=== PATIENT | female | born 1975 | race Caucasian/White ===

== ENCOUNTER 2020-07-10 14:44 | Emergency (ER) | payer OTHER, SELFPAY ==
[2020-07-10 15:09] VITALS: BP 142/71; PULSE 99; RESP 20; TEMP 37.1; O2SAT 100; BMI 32.4
--- NOTE | 2020-07-10 15:30 | ECG_ITS ---
Test Reason : ASTHMA Blood Pressure : / mmHG Vent. Rate : 098 BPM Atrial Rate : 098 BPM P-R Int : 132 ms QRS Dur : 084 ms QT Int : 330 ms P-R-T Axes : 058 041 005 degrees QTc Int : 421 ms Normal sinus rhythm Possible Left atrial enlargement RSR' or QR pattern in V1 suggests right ventricular conduction delay ST elevation in Anterior leads Abnormal ECG No previous ECGs available Referred By: Laurel Salmon Electronically Signed By:MERCEDES ALMODOVAR MD
--- NOTE | 2020-07-10 15:31 | XR_ITS ---
EXAMINATION: XR CHEST CLINICAL INFORMATION: Chest pain, cough and shortness of breath. COMPARISON: None TECHNIQUE: Frontal view of the chest was obtained. FINDINGS: Lungs are well-inflated and clear. Trachea is midline in position. No interstitial disease, consolidation or mass. No pleural effusion or pneumothorax. Cardiac silhouette and pulmonary vessels are normal in size. The mediastinum and gayle have normal contour. The visualized bones, and upper abdomen, are unremarkable. XR/XR chest 1V IMPRESSION: No acute cardiopulmonary abnormality.
[2020-07-10 16:15] LABS: MANUAL DIFF FLAG NO
[2020-07-10 16:24] LABS: Basophils Absolute Auto 0.1 X10*3/uL (0.0-0.2); Basophils Percent Auto 0.6 % (0-2); Eosinophils Absolute Auto 0.1 X10*3/uL (0.0-0.4); Eosinophils Percent Auto 1.4 % (0-4); Hematocrit 36.3 % (37-47); Hemoglobin 11.1 g/dl (12.0-16.0); Imm Gran Abs Auto 0.04 X10*3/uL (0.00-0.03); Imm Gran Pct Auto 0.4 % (0.0-0.4); Lymphocytes Absolute Auto 2.4 X10*3/uL (1.2-4.9); Lymphocytes Percent Auto 24.2 % (20-40); Mean Corpuscular HGB Conc 30.6 g/dl (31.0-35.0); Mean Corpuscular Hemoglobin 24.5 pg (27.0-33.0); Mean Corpuscular Volume 80.1 fL (80-98); Mean Platelet Volume 10.9 fL (9.4-12.3); Monocytes Absolute Auto 0.6 X10*3/uL (0.1-1.2); Monocytes Percent Auto 5.6 % (2-11); Neutrophils Absolute Auto 6.7 X10*3/uL (2.0-8.3); Neutrophils Percent Auto 67.8 % (45-73); Platelet Count 246 X10*3/uL (160-400); Red Blood Count 4.53 X10*6/uL (4.20-5.50); White Blood Count 9.8 X10*3/uL (4.8-10.8)
[2020-07-10] MEDS: methylPREDNISolone Sod Succ/PF 125 MG/2 ML VIAL IVPUSH (16:24)
[2020-07-10] MEDS: Acetaminophen 325 MG TABLET 650 MG PO (16:24)
[2020-07-10] MEDS: Albuterol Sulfate 90 MCG 8 GM INHALER 4 PUFF INHALE (16:26)
--- NOTE | 2020-07-10 16:36 | ED.ASTHMA ---
HPI - Asthma General Chief Complaint: Asthma Stated Complaint: ASTHMA Time Seen by Provider: 07/10/20 15:24 Source: patient Mode of arrival: ambulatory History of Present Illness HPI Narrative: 45-year-old female with a past medical history of asthma, depression, diabetes, HTN, migraines, sleep apnea, c/o productive cough, SOB, and substernal chest discomfort since yesterday. Reports pain worse with deep inspiration. Also reports chills. Denies fever, recent travel, LE edema, abdominal pain, nausea/vomiting. Denies exposure to COVID-19 MD complaint: asthma attack and shortness of breath Related Data Previous Rx's Medication Instructions Recorded benzonatate [Tessalon Perles] 100 mg PO TID PRN #14 cap 07/10/20 prednisone 40 mg PO DAILY 5 Days #10 tab 07/10/20 Allergies Allergy/AdvReac Type Severity Reaction Status Date / Time amitriptyline Allergy Unknown Verified 07/10/20 15:08 gabapentin Allergy Difficulty Verified 07/10/20 15:08 Breathing Iodinated Contrast Media Allergy Unknown Verified 07/10/20 15:08 Review of Systems Review of Systems: Constitutional: No Weight loss, No Fever, + Chills Cardiovascular: + Chest Pain, + SOB, No Dyspnea on Exertion, No Orthopnea, No Edema, No Palpitations Respiratory: + Cough, + Sputum, No Wheezing Gastrointestinal: No Nausea, No Vomiting, No Diarrhea, No Constipation, No Abdominal pain Genitourinary: No Dysuria, No Urinary Frequency, No Hematuria Musculoskeletal: No joint pain, No Myalgias, No Joint Swelling Skin: No Skin Lesions, No rash Neuro: + Headache Yes all other systems are reviewed and are negative [facility] Past Medical History Attestation statement: The following information was validated with the patient. Medical History (Updated 07/10/20 @ 18:36 by MIGUEL A Stover) Asthma Depression Diabetes Hypertension Migraine Sleep apnea Social History Social History Alcohol intake: unknown Smoking Status: Unknown if ever smoked Use of substances other than those prescribed or required for medical reasons: No Advance Directives: No Advance Directives Information Provided: No Physical Exam Vital Signs: Vital Signs: Last Vital Signs Temp 98.6 F 07/10/20 17:56 Pulse 99 07/10/20 17:56 Resp 19 07/10/20 17:56 BP 126/74 07/10/20 17:56 Pulse Ox 98 07/10/20 17:56 Body Mass Index 32.4 Const: General: cooperative and healthy appearing Orientation/consciousness: patient oriented x3 Limitations: no limitations HENMT: Head: Yes normal to inspection Ears: hearing grossly normal bilaterally General nose exam: Normal external nose present Face and sinus: Yes normal facial exam Eyes: General: appearance normal, both eyes and all related structures EOM: EOMs intact bilaterally Neck: Neck: Yes normal visual inspection Resp: Other: Mild diffuse expiratory wheeze Effort & Inspection: normal respiratory effort Auscultation: clear to auscultation bilaterally and wheezes Cardio: Rate: regular rate Heart sounds: S1 normal heart sound present and S2 normal heart sound present GI: Inspection: Yes normal to inspection Palpation (GI): Soft to palpation, nontender, no guarding and not rigid Skin: Rashes: no rashes Wounds: no wounds Neuro: General: patient oriented x3 Gait exam (Neuro): Normal gait present Extrem: Other: No LE edema or calf tenderness General: Yes normal to inspection Course Course Course Narrative: -no leukocytosis, D-dimer negative -CXR unremarkable -1726-troponin negative, COVID-19/influenza/RSV negative -on re-evaluation lungs CTA. Lab and imaging results discussed with patient including worrisome signs and symptoms and strict return precautions. In to DC home with short course of prednisone and close PCP follow-up MDM - Asthma MDM Narrative Medical decision making narrative: 45-year-old female with a past medical history of asthma, depression, diabetes, HTN, migraines, sleep apnea, c/o productive cough, SOB, and substernal chest discomfort since yesterday. On exam HR 99, RR 20, NAD/nontoxic appearing, lungs with diffuse mild expiratory wheeze, no LE edema. Concern for asthma exacerbation vs viral syndrome/COVID-19 vs PE. Rule out pneumonia. Low concern for severe sepsis. Low concern for CHF Plan: EKG, labs, CXR, albuterol, Solu-Medrol, reassess Lab Data Result diagrams: 07/10/20 16:07 07/10/20 17:05 Labs: Lab Results 07/10/20 07/10/20 07/10/20 Range/Units 15:56 16:07 16:07 WBC 9.8 (4.8-10.8) X10*3/uL RBC 4.53 (4.20-5.50) X10*6/uL Hgb 11.1 L (12.0-16.0) g/dl Hct 36.3 L (37-47) % MCV 80.1 (80-98) fL MCH 24.5 L (27.0-33.0) pg MCHC 30.6 L (31.0-35.0) g/dl RDW 17.0 H (11.0-16.0) % Plt Count 246 (160-400) X10*3/uL MPV 10.9 (9.4-12.3) fL Immature Gran % (Auto) 0.4 (0.0-0.4) % Neut % (Auto) 67.8 (45-73) % Lymph % (Auto) 24.2 (20-40) % [place] % (Auto) 5.6 (2-11) % Eos % (Auto) 1.4 (0-4) % Baso % (Auto) 0.6 (0-2) % Lymph # (Auto) 2.4 (1.2-4.9) X10*3/uL [place] # (Auto) 0.6 (0.1-1.2) X10*3/uL Eos # (Auto) 0.1 (0.0-0.4) X10*3/uL Baso # (Auto) 0.1 (0.0-0.2) X10*3/uL Abs Immat Gran (auto) 0.04 H (0.00-0.03) X10*3/uL Absolute Neuts (auto) 6.7 (2.0-8.3) X10*3/uL Absolute Nucleated RBC 0.000 (0.0-0.012) X10*3/uL Nucleated RBC % (auto) 0.0 (0.0-0.2) /100WBC D-Dimer < 200 NG/ML Sodium Potassium Chloride Carbon Dioxide Anion Gap BUN Creatinine Estim Creat Clear Calc Estimated GFR Random Glucose Calcium Total Bilirubin Direct Bilirubin AST ALT Alkaline Phosphatase Troponin I High Sens (<3.5-17.0) ng/L B-Natriuretic Peptide (<100) pg/mL Total Protein Albumin Coronavirus (PCR) NEGATIVE (Negative) Influenza Type A (PCR) NEGATIVE (Negative) Influenza Type B (PCR) NEGATIVE (Negative) RSV RNA Qual (PCR) NEGATIVE (Negative) 07/10/20 07/10/20 07/10/20 Range/Units 16:07 16:07 16:08 WBC (4.8-10.8) X10*3/uL RBC (4.20-5.50) X10*6/uL Hgb (12.0-16.0) g/dl Hct (37-47) % MCV (80-98) fL MCH (27.0-33.0) pg MCHC (31.0-35.0) g/dl RDW (11.0-16.0) % Plt Count (160-400) X10*3/uL MPV (9.4-12.3) fL Immature Gran % (Auto) (0.0-0.4) % Neut % (Auto) (45-73) % Lymph % (Auto) (20-40) % [place] % (Auto) (2-11) % Eos % (Auto) (0-4) % Baso % (Auto) (0-2) % Lymph # (Auto) (1.2-4.9) X10*3/uL [place] # (Auto) (0.1-1.2) X10*3/uL Eos # (Auto) (0.0-0.4) X10*3/uL Baso # (Auto) (0.0-0.2) X10*3/uL Abs Immat Gran (auto) (0.00-0.03) X10*3/uL Absolute Neuts (auto) (2.0-8.3) X10*3/uL Absolute Nucleated RBC (0.0-0.012) X10*3/uL Nucleated RBC % (auto) (0.0-0.2) /100WBC D-Dimer NG/ML Sodium Cancelled Potassium Cancelled Chloride Cancelled Carbon Dioxide Cancelled Anion Gap Cancelled BUN Cancelled Creatinine Cancelled Estim Creat Clear Calc Cancelled Estimated GFR Cancelled Random Glucose Cancelled Calcium Cancelled Total Bilirubin Cancelled Direct Bilirubin Cancelled AST Cancelled ALT Cancelled Alkaline Phosphatase Cancelled Troponin I High Sens < 3.5 (<3.5-17.0) ng/L B-Natriuretic Peptide < 10 (<100) pg/mL Total Protein Cancelled Albumin Cancelled Coronavirus (PCR) (Negative) Influenza Type A (PCR) (Negative) Influenza Type B (PCR) (Negative) RSV RNA Qual (PCR) (Negative) 07/10/20 07/10/20 Range/Units 17:05 17:05 WBC (4.8-10.8) X10*3/uL RBC (4.20-5.50) X10*6/uL Hgb (12.0-16.0) g/dl Hct (37-47) % MCV (80-98) fL MCH (27.0-33.0) pg MCHC (31.0-35.0) g/dl RDW (11.0-16.0) % Plt Count (160-400) X10*3/uL MPV (9.4-12.3) fL Immature Gran % (Auto) (0.0-0.4) % Neut % (Auto) (45-73) % Lymph % (Auto) (20-40) % [place] % (Auto) (2-11) % Eos % (Auto) (0-4) % Baso % (Auto) (0-2) % Lymph # (Auto) (1.2-4.9) X10*3/uL [place] # (Auto) (0.1-1.2) X10*3/uL Eos # (Auto) (0.0-0.4) X10*3/uL Baso # (Auto) (0.0-0.2) X10*3/uL Abs Immat Gran (auto) (0.00-0.03) X10*3/uL Absolute Neuts (auto) (2.0-8.3) X10*3/uL Absolute Nucleated RBC (0.0-0.012) X10*3/uL Nucleated RBC % (auto) (0.0-0.2) /100WBC D-Dimer NG/ML Sodium 138 Potassium 3.5 Chloride 107 Carbon Dioxide 23 Anion Gap 12 BUN 14 Creatinine 0.79 Estim Creat Clear Calc 89.8 Estimated GFR > 60 Random Glucose 294 H Calcium 8.3 L Total Bilirubin 0.3 Direct Bilirubin < 0.2 AST 8 ALT 9 Alkaline Phosphatase 126 H Troponin I High Sens (<3.5-17.0) ng/L B-Natriuretic Peptide (<100) pg/mL Total Protein 6.5 Albumin 3.8 Coronavirus (PCR) (Negative) Influenza Type A (PCR) (Negative) Influenza Type B (PCR) (Negative) RSV RNA Qual (PCR) (Negative) Discharge Plan Discharge Clinical Impression: Asthma with acute exacerbation Patient Disposition: Home, Self-Care Instructions: Asthma (ED) Additional Instructions: Your blood work and chest x-ray were reassuring today in the ED Your COVID-19, influenza, and RSV were negative New likely your having asthma exacerbation Continue to use her nebulizer, and inhalers at home In addition start taking prednisone as prescribed Tessalon Perles are for cough, take as needed Follow-up with her primary care doctor If her symptoms persist or worsen, you have constant worsening shortness of breath, chest pain, or cough return to the ED Prescriptions: New prednisone 20 mg tablet 40 mg PO DAILY 5 Days Qty: 10 RF: 0 benzonatate [Tessalon Perles] 100 mg capsule 100 mg PO TID PRN (Reason: cough) Qty: 14 RF: 0 Referrals: Shital Perez MD [Primary Care Provider] - 2 days
[2020-07-10 16:39] LABS: D Dimer < 200 NG/ML
[2020-07-10 16:43] LABS: B Type Natriuretic Peptide < 10 pg/mL (<100)
[2020-07-10 16:48] LABS: Influenza A PCR NEGATIVE (Negative); Influenza B PCR NEGATIVE (Negative); Resp Syncy Virus RNA Qual PCR NEGATIVE (Negative); SARS COV2 PCR INHOUSE NEGATIVE (Negative)
[2020-07-10 16:53] LABS: Troponin-I High Sensitivity < 3.5 ng/L (<3.5-17.0)
[2020-07-10 17:39] LABS: Alanine Aminotransferase 9 U/L (0-31); Albumin Level 3.8 g/dL (3.5-5.0); Alkaline Phosphatase 126 U/L (39-117); Anion Gap 12 (12-20); Aspartate Amino Transferase 8 U/L (5-31); Bilirubin Direct < 0.2 mg/dL (0.0-0.5); Bilirubin Total 0.3 mg/dL (0.0-1.0); Blood Urea Nitrogen 14 mg/dL (9-16); Calcium 8.3 mg/dL (8.4-10.2); Carbon Dioxide 23 mmol/L (22-29); Chloride 107 mmol/L (96-108); Creatinine Clr Calc Pharmacy 89.8; Estimated Glomerular Filt Rate > 60; Glucose Random 294 mg/dL (60-115); Potassium 3.5 mmol/l (3.3-5.1); Sodium 138 mmol/L (135-145); Total Protein 6.5 g/dL (6.5-8.0)
[2020-07-10 17:56] VITALS: BP 126/74; PULSE 99; RESP 19; TEMP 37; O2SAT 98
== END 2020-07-10 18:56 | disposition home or self-care (01) ==
PROVIDERS: Physician Assistant; Emergency Provider Emergency Medicine; PCP Internal Medicine
DX: J45.901 Unspecified asthma with (acute) exacerbation (principal); I10 Essential (primary) hypertension; E11.9 Type 2 diabetes mellitus without complications; Z79.899 Other long term (current) drug therapy; Z20.828 Contact with and (suspected) exposure to other viral communicable diseases
CPT/HCPCS: 0241U; 36415; 71045; 80048; 80076; 83880; 84484; 85025; 85379; 93005; 94640; 96374; 99284; J2930

== ENCOUNTER 2020-10-31 11:08 | Emergency (ER) | payer OTHER, SELFPAY ==
[2020-10-31] VITALS (7 sets, daily range): BP systolic 130–142; BP diastolic 65–75; PULSE 80–93; RESP 16–18; TEMP 36.5–37; O2SAT 100; BMI 35.8
--- NOTE | 2020-10-31 | ECG_ITS ---
Test Reason : CHEST PAIN Blood Pressure : / mmHG Vent. Rate : 091 BPM Atrial Rate : 091 BPM P-R Int : 134 ms QRS Dur : 092 ms QT Int : 372 ms P-R-T Axes : 063 035 020 degrees QTc Int : 457 ms Normal sinus rhythm Possible Left atrial enlargement Borderline ECG When compared with ECG of 10-JUL-2020 15:46, No significant change was found Referred By: Generic ED Physician Electronically Signed By:DEIDRE BUTLER
--- NOTE | ~2020-10-31 | XR_ITS ---
EXAMINATION: XR CHEST CLINICAL INFORMATION: Chest pain COMPARISON: None TECHNIQUE: Frontal view of the chest was obtained. FINDINGS: No significant abnormality is noted involving the heart, lungs, mediastinum, bony thorax or soft tissues. XR/XR chest 1V IMPRESSION: Unremarkable chest examination.
--- NOTE | ~2020-10-31 | US_ITS ---
EXAMINATION: US ABDOMEN LIMITED CLINICAL INFORMATION: Epigastric pain. Rule out gallbladder disease.. COMPARISON: None TECHNIQUE: Real-time imaging of the right upper quadrant abdominal viscera. FINDINGS: PANCREAS: The body of the pancreas is normal. The remainder of the pancreas is not well visualized. LIVER: Normal. The liver is normal in size. The liver contour is normal. Parenchymal echogenicity is normal. No focal hepatic lesion. There is no intrahepatic biliary duct dilatation seen. GALLBLADDER: Normal. The gallbladder is physiologically distended without evidence of stones, sludge, polyps, wall thickening or pericholecystic fluid. COMMON BILE DUCT: Normal in caliber measuring 0.6 cm in diameter. RIGHT KIDNEY: Normal. No hydronephrosis. No renal calculi or focal parenchymal lesions. The kidney measures 11.2 cm in maximum dimension. FREE FLUID: None. US/US abdomen limited IMPRESSION: Limited visualization of the pancreas otherwise unremarkable exam
--- NOTE | 2020-10-31 11:37 | ED.CHESTPAIN ---
HPI - Chest Pain General Chief Complaint: Chest Pain Stated Complaint: chest pain,back pain,weakness,vomiting Time Seen by Provider: 10/31/20 11:34 Source: patient Mode of arrival: ambulatory Limitations: no limitations History of Present Illness HPI narrative: 45-year-old female walked in with chest pain that started 04:00 o'clock in the morning (about 7 hours ago) well the patient up from sleep, patient describes the pain as sharp stabbing pain to the mid of the chest, radiates to the back, described as constant pain, nothing makes the pain worse or better, patient had a similar episode of chest pain in the past patient did not know the underlying cause. Patient declined any recent travel, no lower extremity swelling or tenderness. Patient also been complaining for 1 day of epigastric pain with nausea and vomiting, patient feels generalized weakness due to not tolerating p.o. intake. No sick contacts, no diarrhea. Related Data Previous Rx's Medication Instructions Recorded benzonatate [Tessalon Perles] 100 mg PO TID PRN #14 cap 07/10/20 prednisone 40 mg PO DAILY 5 Days #10 tab 07/10/20 omeprazole magnesium [Prilosec OTC] 20 mg PO BID #30 tab 10/31/20 Allergies Allergy/AdvReac Type Severity Reaction Status Date / Time amitriptyline Allergy Unknown Verified 07/10/20 15:08 gabapentin Allergy Difficulty Verified 07/10/20 15:08 Breathing Iodinated Contrast Media Allergy Unknown Verified 07/10/20 15:08 sulfamethoxazole Allergy Itching Verified 10/31/20 11:24 [From Bactrim] trimethoprim [From Bactrim] Allergy Itching Verified 10/31/20 11:24 Review of Systems Review of Systems: All other systems are reviewed and are negative Constitutional: Reports as per HPI and Reports no additional constitutional complaints Eyes: Reports as per HPI and Reports no additional eye complaints Reports system reviewed and no additional complaints, except as documented Cardiovascular: Reports as per HPI and Reports no additional cardiovascular complaints Respiratory: Reports as per HPI and Reports no additional respiratory complaints Gastrointestinal: Reports as per HPI and Reports no additional gastrointestinal complaints Genitourinary: Reports no additional female genitourinary complaints Musculoskeletal: Reports no additional musculoskeletal complaints Skin/Breast: Reports system reviewed and no additional complaints, except as docu Psychiatric: Reports no additional psychiatric complaints Endocrine: Reports no additional endocrine complaints Hematologic/Lymphatic: Reports no additional hematologic/lymphatic complaints Allergic/Immunologic: Reports no additional allergic/immunologic complaints Reports system reviewed and no additional complaints, except as documented and Reports Abnormal speech present [facility] Past Medical History Medical History Asthma Depression Diabetes Hypertension Migraine Sleep apnea Social History Social History Alcohol intake: never Smoking Status: Former smoker Use of substances other than those prescribed or required for medical reasons: No Advance Directives: No Advance Directives Information Provided: No Physical Exam Vital Signs: Vital Signs: Last Vital Signs Temp 97.8 F 10/31/20 15: Pulse 89 10/31/20 15:21 Resp 18 10/31/20 15:21 BP 135/72 10/31/20 15:21 Pulse Ox 100 10/31/20 15:21 Body Mass Index 35.8 Vital signs have been reviewed as appeared to be correct. Blood pressure normal. Heart rate normal. Respiration rate normal. Temperature normal. Oxygen saturation normal. Appearance: Alert. Oriented X3. No acute distress. Appear anxious. Head: Normal external exam. Normocephalic. Atraumatic. No Trivedi signs noted. No raccoon eyes noted Eyes: PERRLA. EOMI. Conjunctiva and sclera normal. Eyelids normal. ENT: TM's Normal. Pharynx normal. Uvula midline. Moist mucous membranes. No trismus noted. No drooling noted. No muffled voice noted. Neck: Normal inspection. Neck supple. FROM. No adenopathy. Thyroid Normal. No meningeal signs. No neck mass noted. CVS: Normal heart rate and rhythm. Heart sound normal. No murmurs noted. Pulses normal throughout. Respiratory: No respiratory distress. Painless inspiration. Breath sounds normal. No wheezes/rales/rhonchi noted. Chest nontender. No accessory muscle usage noted or decreased air movement noted. Abdomen: Soft soft mild epigastric tenderness, no guarding, no rebound tenderness.. Bowel sounds normal in all 4 quadrants. No distention noted. No organomegaly noted. No visible injury noted. Back: No CVA tenderness. Full range of motion noted. Skin: Skin warm and dry. Normal skin color. Normal skin turgor. No rashes/lesions/lacerations noted. Extremities: No lower extremity edema. Extremities exhibit normal range of motion. Extremities nontender. Neuro: Oriented X 3. No motor deficit. No sensory deficit. Reflexes normal. Course Course Course Narrative: Assessment and plan. 44-year-old female presented today with chest pain started earlier this morning, troponin is negative (9 hours after chest pain onset) EKG unremarkable, D-dimer is unremarkable as well. Physical exam is consistent with gastritis. Will start patient on Prilosec an outpatient follow-up with Gastroenterology. MDM - Chest Pain Lab Data Attestation: I reviewed the patient's lab results. Result diagrams: 10/31/20 12:42 10/31/20 12:42 Labs: Lab Results 10/31/20 10/31/20 10/31/20 Range/Units 12:01 12:42 12:42 WBC 11.3 H (4.8-10.8) X10*3/uL RBC 4.89 (4.20-5.50) X10*6/uL Hgb 11.8 L (12.0-16.0) g/dl Hct 38.7 (37-47) % MCV 79.1 L (80-98) fL MCH 24.1 L (27.0-33.0) pg MCHC 30.5 L (31.0-35.0) g/dl RDW 18.0 H (11.0-16.0) % Plt Count 209 (160-400) X10*3/uL MPV 11.0 (9.4-12.3) fL Immature Gran % (Auto) 0.6 H (0.0-0.4) % Neut % (Auto) 72.5 (45-73) % Lymph % (Auto) 19.7 L (20-40) % [place] % (Auto) 5.5 (2-11) % Eos % (Auto) 1.3 (0-4) % Baso % (Auto) 0.4 (0-2) % Lymph # (Auto) 2.2 (1.2-4.9) X10*3/uL [place] # (Auto) 0.6 (0.1-1.2) X10*3/uL Eos # (Auto) 0.2 (0.0-0.4) X10*3/uL Baso # (Auto) 0.1 (0.0-0.2) X10*3/uL Abs Immat Gran (auto) 0.07 H (0.00-0.03) X10*3/uL Absolute Neuts (auto) 8.2 (2.0-8.3) X10*3/uL Absolute Nucleated RBC 0.000 (0.0-0.012) X10*3/uL Nucleated RBC % (auto) 0.0 (0.0-0.2) /100WBC Sodium 139 (135-145) mmol/L Potassium 4.4 (3.3-5.1) mmol/L Chloride 104 (96-108) mmol/L Carbon Dioxide 24 (22-29) mmol/L Anion Gap 15 (12-20) BUN 14 (9-16) mg/dL Creatinine 0.85 (0.5-1.4) mg/dL Estim Creat Clear Calc 88.0 Estimated GFR > 60 Random Glucose 236 H (60-115) mg/dL Calcium 9.2 D (8.4-10.2) mg/dL Total Bilirubin 0.3 (0.0-1.0) mg/dL Direct Bilirubin < 0.2 (0.0-0.5) mg/dL AST 21 D (5-31) U/L ALT 13 (0-31) U/L Alkaline Phosphatase 128 H (39-117) U/L Troponin I High Sens (<3.5-17.0) ng/L B-Natriuretic Peptide (<100) pg/mL Total Protein 7.4 (6.5-8.0) g/dL Albumin 4.0 (3.5-5.0) g/dL Lipase 20 (8-78) U/L Urine Color Urine Appearance Urine pH (5.0-8.0) Ur Specific [place] (1.005-1.025) Urine Protein (NEG-TRACE) MG/DL Urine Glucose (UA) (NEG) MG/DL Urine Ketones (NEG) MG/DL Urine Blood (NEG) Urine Nitrite (NEG) Ur Leukocyte Esterase (NEG) Urine Test (NEGATIVE) COVID-19 (PARMJIT) Negative (Negative) COVID-19 Clin Com See Note 10/31/20 10/31/20 10/31/20 Range/Units 12:42 15:00 15:00 WBC (4.8-10.8) X10*3/uL RBC (4.20-5.50) X10*6/uL Hgb (12.0-16.0) g/dl Hct (37-47) % MCV (80-98) fL MCH (27.0-33.0) pg MCHC (31.0-35.0) g/dl RDW (11.0-16.0) % Plt Count (160-400) X10*3/uL MPV (9.4-12.3) fL Immature Gran % (Auto) (0.0-0.4) % Neut % (Auto) (45-73) % Lymph % (Auto) (20-40) % [place] % (Auto) (2-11) % Eos % (Auto) (0-4) % Baso % (Auto) (0-2) % Lymph # (Auto) (1.2-4.9) X10*3/uL [place] # (Auto) (0.1-1.2) X10*3/uL Eos # (Auto) (0.0-0.4) X10*3/uL Baso # (Auto) (0.0-0.2) X10*3/uL Abs Immat Gran (auto) (0.00-0.03) X10*3/uL Absolute Neuts (auto) (2.0-8.3) X10*3/uL Absolute Nucleated RBC (0.0-0.012) X10*3/uL Nucleated RBC % (auto) (0.0-0.2) /100WBC Sodium (135-145) mmol/L Potassium (3.3-5.1) mmol/L Chloride (96-108) mmol/L Carbon Dioxide (22-29) mmol/L Anion Gap (12-20) BUN (9-16) mg/dL Creatinine (0.5-1.4) mg/dL Estim Creat Clear Calc Estimated GFR Random Glucose (60-115) mg/dL Calcium (8.4-10.2) mg/dL Total Bilirubin (0.0-1.0) mg/dL Direct Bilirubin (0.0-0.5) mg/dL AST (5-31) U/L ALT (0-31) U/L Alkaline Phosphatase (39-117) U/L Troponin I High Sens < 3.5 (<3.5-17.0) ng/L B-Natriuretic Peptide < 10 (<100) pg/mL Total Protein (6.5-8.0) g/dL Albumin (3.5-5.0) g/dL Lipase (8-78) U/L Urine Color YELLOW Urine Appearance CLEAR Urine pH 5.5 (5.0-8.0) Ur Specific [place] 1.025 (1.005-1.025) Urine Protein NEG (NEG-TRACE) MG/DL Urine Glucose (UA) 100 H (NEG) MG/DL Urine Ketones NEG (NEG) MG/DL Urine Blood NEG (NEG) Urine Nitrite NEG (NEG) Ur Leukocyte Esterase NEG (NEG) Urine Test NEGATIVE (NEGATIVE) COVID-19 (PARMJIT) (Negative) COVID-19 Clin Com Imaging Data Chest x-ray: Radiologist's impression: Unremarkable chest X emanation. US - abdomen: Radiologist's impression: PANCREAS: The body of the pancreas is normal. The remainder of the pancreas is not well visualized. LIVER: Normal. The liver is normal in size. The liver contour is normal. Parenchymal echogenicity is normal. No focal hepatic lesion. There is no intrahepatic biliary duct dilatation seen. GALLBLADDER: Normal. The gallbladder is physiologically distended without evidence of stones, sludge, polyps, wall thickening or pericholecystic fluid. COMMON BILE DUCT: Normal in caliber measuring 0.6 cm in diameter. RIGHT KIDNEY: Normal. No hydronephrosis. No renal calculi or focal parenchymal lesions. The kidney measures 11.2 cm in maximum dimension. Discharge Plan Discharge Clinical Impression: Chest pain, Gastritis Patient Disposition: Home, Self-Care Instructions: Gastritis (ED) Prescriptions: New omeprazole magnesium [Prilosec OTC] 20 mg tablet,delayed release (DR/EC) 20 mg PO BID Qty: 30 RF: 0 No Action prednisone 20 mg tablet 40 mg PO DAILY 5 Days Qty: 10 RF: 0 benzonatate [Tessalon Perles] 100 mg capsule 100 mg PO TID PRN (Reason: cough) Qty: 14 RF: 0 Referrals: Shital Perez MD [Primary Care Provider] - 2 days Mounika Campbell MD [Physician] - 2 days
--- NOTE | 2020-10-31 11:48 | PC.NURSE ---
pt placed on upholstery tech. MD at bedside
[2020-10-31 12:31] LABS: COVID-19 Test Negative (Negative)
[2020-10-31 12:47] LABS: MANUAL DIFF FLAG NO
[2020-10-31 12:50] LABS: Basophils Absolute Auto 0.1 X10*3/uL (0.0-0.2); Basophils Percent Auto 0.4 % (0-2); Eosinophils Absolute Auto 0.2 X10*3/uL (0.0-0.4); Eosinophils Percent Auto 1.3 % (0-4); Hematocrit 38.7 % (37-47); Hemoglobin 11.8 g/dl (12.0-16.0); Imm Gran Abs Auto 0.07 X10*3/uL (0.00-0.03); Imm Gran Pct Auto 0.6 % (0.0-0.4); Lymphocytes Absolute Auto 2.2 X10*3/uL (1.2-4.9); Lymphocytes Percent Auto 19.7 % (20-40); Mean Corpuscular HGB Conc 30.5 g/dl (31.0-35.0); Mean Corpuscular Hemoglobin 24.1 pg (27.0-33.0); Mean Corpuscular Volume 79.1 fL (80-98); Monocytes Absolute Auto 0.6 X10*3/uL (0.1-1.2); Monocytes Percent Auto 5.5 % (2-11); Neutrophils Absolute Auto 8.2 X10*3/uL (2.0-8.3); Neutrophils Percent Auto 72.5 % (45-73); Platelet Count 209 X10*3/uL (160-400); Red Blood Count 4.89 X10*6/uL (4.20-5.50); White Blood Count 11.3 X10*3/uL (4.8-10.8)
[2020-10-31] MEDS: Magnesium Hydrox/Alum Hydrox 30 ML ORAL.SUSP PO (13:10)
[2020-10-31 13:12] LABS: B Type Natriuretic Peptide < 10 pg/mL (<100); Troponin-I High Sensitivity < 3.5 ng/L (<3.5-17.0)
--- NOTE | 2020-10-31 13:20 | PC.NURSE ---
patient a&ox3, orthostats obtained, ekg performed, unable to get iv access with multiple attempts by different nurses although we were able to obtain labs-provider is aware and changed medications to PO meds for the time being, pt quality assurance monitor nsr 80s-90s, family at bedside, pt medicated per order, will continue to monitor.
[2020-10-31 13:21] LABS: Alanine Aminotransferase 13 U/L (0-31); Alkaline Phosphatase 128 U/L (39-117); Anion Gap 15 (12-20); Aspartate Amino Transferase 21 U/L (5-31); Bilirubin Direct < 0.2 mg/dL (0.0-0.5); Bilirubin Total 0.3 mg/dL (0.0-1.0); Blood Urea Nitrogen 14 mg/dL (9-16); Calcium 9.2 mg/dL (8.4-10.2); Carbon Dioxide 24 mmol/L (22-29); Chloride 104 mmol/L (96-108); Estimated Glomerular Filt Rate > 60; Glucose Random 236 mg/dL (60-115); Lipase 20 U/L (8-78); Potassium 4.4 mmol/L (3.3-5.1); Sodium 139 mmol/L (135-145); Total Protein 7.4 g/dL (6.5-8.0)
[2020-10-31 15:13] LABS: Glucose Urine UA 100 MG/DL (NEG); Leukocyte Esterase Urine NEG (NEG); Nitrite Urine NEG (NEG); PH 5.5 (5.0-8.0); Specific Gravity - Urine 1.025 (1.005-1.025); Urine Blood NEG (NEG); Urine Ketones NEG (NEG); Urine Protein NEG (NEG-TRACE)
[2020-10-31] MEDS: oxyCODONE HCl Immed Release 5 MG TABLET PO (15:20)
--- NOTE | 2020-10-31 15:21 | PC.NURSE ---
pt medicated for pain per order
--- NOTE | 2020-10-31 15:21 | PC.NURSE ---
us performed at bedside
[2020-10-31 15:23] LABS: Appearance Urine CLEAR; Color Urine YELLOW; UPreg QC Valid YES; Urine Pregnancy NEGATIVE (NEGATIVE)
--- NOTE | 2020-10-31 15:23 | PC.NURSE ---
rag sorter nsr 80s-90s
== END 2020-10-31 16:22 | disposition home or self-care (01) ==
PROVIDERS: Emergency Provider Emergency Medicine; PCP Internal Medicine
DX: R07.89 Other chest pain (principal); K29.70 Gastritis, unspecified, without bleeding; R10.13 Epigastric pain; M54.5 Low back pain; Z20.822 Contact with and (suspected) exposure to COVID-19; Z79.899 Other long term (current) drug therapy; Z87.891 Personal history of nicotine dependence
CPT/HCPCS: 36415; 71045; 76705; 80048; 80076; 81003; 81025; 83690; 83880; 84484; 85025; 87635; 93005; 96365; 96375; 99284

== ENCOUNTER 2020-11-24 23:05 | Emergency (ER) | payer OTHER, SELFPAY | END 2020-11-25 01:47 | disposition left against medical advice (07) | PROVIDERS: Emergency Provider Emergency Medicine; PCP Internal Medicine | DX: R10.2 Pelvic and perineal pain (principal) ==

== ENCOUNTER → 2020-12-20 11:16 | Outpatient (BNVA) | payer OTHER, SELFPAY | PROVIDERS: PCP Internal Medicine; Visit Provider Internal Medicine Gastroenterology | DX: R10.9 Unspecified abdominal pain (principal); R14.0 Abdominal distension (gaseous) | CPT/HCPCS: 99202 ==

== ENCOUNTER 2020-12-22 12:53 | Emergency (ER) | payer OTHER, SELFPAY ==
[2020-12-22 13:21] VITALS: BP 136/79; PULSE 110; RESP 16; TEMP 36.1; O2SAT 98; BMI 34.9
--- NOTE | 2020-12-22 13:47 | ED.FEMALEGU ---
HPI - Female Genitourinary General Chief complaint: Urogenital-Female Stated complaint: vag burning Time Seen by Provider: 12/22/20 13:47 History of Present Illness HPI Narrative: Patient complains of vaginal pain and burning for several days, she saw her process control programmer a few days ago evaluated and felt there was no infection but she says burning continues and wants to be re-evaluate, there is no fever no chills no vomiting no abdominal pain no bleeding Related Data Home Medications Medication Instructions Recorded Confirmed amlodipine 10 mg tablet 10 mg PO DAILY 12/20/20 clonazepam 0.5 mg tablet 0.25 mg PO BEDTIME 12/20/20 cyclobenzaprine 10 mg tablet 10 mg PO BEDTIME 12/20/20 duloxetine 60 mg capsule,delayed 60 mg PO DAILY 12/20/20 release empagliflozin 10 mg tablet 10 mg PO DAILY 12/20/20 ferrous sulfate 325 mg (65 mg 325 mg PO DAILY 12/20/20 iron) tablet insulin glargine 100 unit/mL 25 unit SUBCUT BID ml 12/20/20 subcutaneous solution insulin lispro 200 unit/mL (3 mL) 20 unit SUBCUT QIDACHS 12/20/20 subcutaneous pen lisinopril 10 mg tablet 10 mg PO DAILY 12/20/20 melatonin 10 mg capsule 10 mg PO BEDTIME PRN 12/20/20 promethazine 25 mg tablet 25 mg PO TID PRN 12/20/20 sennosides 8.6 mg-docusate sodium 1 tab-cap PO BEDTIME 12/20/20 50 mg tablet topiramate 200 mg capsule 200 mg PO DAILY 12/20/20 sprinkle,extended release 24 hr Previous Rx's Medication Instructions Recorded benzonatate [Tessalon Perles] 100 mg PO TID PRN #14 cap 07/10/20 prednisone 40 mg PO DAILY 5 Days #10 tab 07/10/20 omeprazole magnesium 20 mg 20 mg PO BID 28 Days #56 tab 12/20/20 tablet,delayed release polyethylene glycol 3350 17 238 g PO ONCE #238 g 12/20/20 gram/dose oral powder hydrocortisone 1 appl TOPICAL TID PRN #28.35 g 12/22/20 Allergies Allergy/AdvReac Type Severity Reaction Status Date / Time meloxicam Allergy Mild kidney Verified 12/20/20 11:29 failure amitriptyline Allergy Unknown Verified 12/20/20 11:29 gabapentin Allergy Difficulty Verified 12/20/20 11:29 Breathing Iodinated Contrast Media Allergy Unknown Verified 12/20/20 11:29 sulfamethoxazole Allergy Itching Verified 12/20/20 11:29 [From Bactrim] trimethoprim [From Bactrim] Allergy Itching Verified 12/20/20 11:29 Review of Systems Review of Systems: Positive for vaginal discharge and burning Negative no fever no chills no dizziness no weakness no headache nor sore throat no chest pain no shortness of breath no abdominal pain no nausea vomiting or diarrhea no burning with urination or frequency of urination no rash Yes all other systems are reviewed and are negative PMFSH Past Medical History Source: nursing notes reviewed Medical History Adrenal mass Anemia Anxiety Asthma Carpal tunnel syndrome Depression Diabetes Fibromyalgia GERD (gastroesophageal reflux disease) Hypertension Migraine Sleep apnea Social History Social History Alcohol intake: never Physical Exam Vital Signs: Vital Signs: Last Vital Signs Temp 96.9 F 12/22/20 13: Pulse 110 H 12/22/20 13:21 Resp 16 12/22/20 13:21 BP 136/79 12/22/20 13:21 Pulse Ox 98 12/22/20 13:21 Body Mass Index 34.9 General appearance is no acute distress, and cooperative Head is normocephalic atraumatic Pharynx mucous membranes moist Neck is supple Respiratory no distress Abdomen soft nontender no rebound no guarding no bladder tenderness no flank tenderness no CVA tenderness Pelvic exam normal external appearance, no rashes no ulcerations Speculum exam again is normal appearance there is some scant amount of odorless white discharge Internal digital exam no masses felt no significant tenderness no cervical motion tenderness Skin no rashes Extremities full range of motion x4 Course Course Course Narrative: No evidence of any serious acute pathology, discharge was cultured and patient will follow with process control programmer doctor MDM - Female Genitourinary Lab Data Labs: Lab Results 12/22/20 12/22/20 12/22/20 Range/Units 13:59 14:00 15:51 Urine Color YELLOW Urine Appearance CLEAR Urine pH 5.5 (5.0-8.0) Ur Specific [place] 1.015 (1.005-1.025) Urine Protein NEG (NEG-TRACE) MG/DL Urine Glucose (UA) >=1000 H (NEG) MG/DL Urine Ketones NEG (NEG) MG/DL Urine Blood NEG (NEG) Urine Nitrite NEG (NEG) Ur Leukocyte Esterase NEG (NEG) Urine RBC 0-2 (0) /HPF Urine WBC 0 (0-4) /HPF Ur Squamous Epith Cells 1+ /LPF Urine Bacteria NONE /LPF Urine Test NEGATIVE (NEGATIVE) Maribell species DNA (Negative) Chlam trachomat DNA PCR NOT DETECTED (Not Detect.) Gardnerella DNA Probe (Negative) N.gonorrhoeae DNA (PCR) NOT DETECTED (Not Detect.) Trichomonas DNA Probe (Negative) 12/22/20 Range/Units 15:53 Urine Color Urine Appearance Urine pH (5.0-8.0) Ur Specific [place] (1.005-1.025) Urine Protein (NEG-TRACE) MG/DL Urine Glucose (UA) (NEG) MG/DL Urine Ketones (NEG) MG/DL Urine Blood (NEG) Urine Nitrite (NEG) Ur Leukocyte Esterase (NEG) Urine RBC (0) /HPF Urine WBC (0-4) /HPF Ur Squamous Epith Cells /LPF Urine Bacteria /LPF Urine Test (NEGATIVE) Maribell species DNA Positive A (Negative) Chlam trachomat DNA PCR (Not Detect.) Gardnerella DNA Probe Negative (Negative) N.gonorrhoeae DNA (PCR) (Not Detect.) Trichomonas DNA Probe Negative (Negative) Discharge Plan Discharge Clinical Impression: Vaginal irritation Patient Disposition: Home, Self-Care Additional Instructions: Your exam was normal except for scant small amount of white discharge, there was no sign of any dangerous infection or surgical emergency I did not see any rash Hydrocortisone cream may help the burning so you can try to see if it helps Most important follow with her mortarman for re-evaluation in several days if not better Return to ER any time if worse Prescriptions: New hydrocortisone 1 % cream 1 appl topical TID PRN (Reason: skin irritation) Qty: 28.35 RF: 0 No Action prednisone 20 mg tablet 40 mg PO DAILY 5 Days Qty: 10 RF: 0 benzonatate [Tessalon Perles] 100 mg capsule 100 mg PO TID PRN (Reason: cough) Qty: 14 RF: 0 Humalog KwikPen Insulin 200 unit/mL (3 mL) insulin pen 20 unit subcut QIDACHS RF: 0 Lantus U-100 Insulin 100 unit/mL solution 25 unit subcut BID RF: 0 Jardiance 10 mg tablet 10 mg PO DAILY RF: 0 sennosides-docusate sodium [Senexon-S] 8.6-50 mg tablet 1 tab-cap PO BEDTIME RF: 0 clonazepam 0.5 mg tablet 0.25 mg PO BEDTIME RF: 0 duloxetine 60 mg capsule,delayed release(DR/EC) 60 mg PO DAILY RF: 0 topiramate 200 mg cap,sprinkle,ER 24hr dose pack 200 mg PO DAILY RF: 0 lisinopril 10 mg tablet 10 mg PO DAILY RF: 0 ferrous sulfate 325 mg (65 mg iron) tablet 325 mg PO DAILY RF: 0 cyclobenzaprine 10 mg tablet 10 mg PO BEDTIME RF: 0 amlodipine 10 mg tablet 10 mg PO DAILY RF: 0 promethazine 25 mg tablet 25 mg PO TID PRNRF: 0 melatonin 10 mg capsule 10 mg PO BEDTIME PRNRF: 0 omeprazole magnesium [Prilosec OTC] 20 mg tablet,delayed release (DR/EC) 20 mg PO BID 28 Days Qty: 56 RF: 2 polyethylene glycol 3350 [Miralax] 17 gram/dose powder 238 g PO ONCE Qty: 238 RF: 0 Interventions: ED Discharge Assessment Last Done: 12/22/20 16:14 Discharge Date/Time: 12/22/20 16:15
[2020-12-22 14:16] LABS: Glucose Urine UA >=1000 MG/DL (NEG); Leukocyte Esterase Urine NEG (NEG); Nitrite Urine NEG (NEG); PH 5.5 (5.0-8.0); Specific Gravity - Urine 1.015 (1.005-1.025); Urine Blood NEG (NEG); Urine Ketones NEG (NEG); Urine Protein NEG (NEG-TRACE)
[2020-12-22 14:17] LABS: Appearance Urine CLEAR; Color Urine YELLOW
[2020-12-22 14:18] LABS: UPreg QC Valid YES; Urine Pregnancy NEGATIVE (NEGATIVE)
[2020-12-22 14:35] LABS: RBC Urine 0-2 /HPF (0); Squamous Epithelial Cell Urine 1+ /LPF; WBC Urine 0 /HPF (0-4)
[2020-12-23 09:16] LABS: BV Int Neg Control Negative (Negative); BV Int Pos Control Positive (Positive)
[2020-12-23 09:29] LABS: CT PCR NOT DETECTED (Not Detect.); NG PCR NOT DETECTED (Not Detect.)
== END 2020-12-22 16:15 | disposition home or self-care (01) ==
PROVIDERS: Physician Assistant Medical; Emergency Provider Emergency Medicine; PCP Internal Medicine
DX: N89.8 Other specified noninflammatory disorders of vagina (principal); R10.2 Pelvic and perineal pain; E11.9 Type 2 diabetes mellitus without complications; I10 Essential (primary) hypertension; Z79.899 Other long term (current) drug therapy
CPT/HCPCS: 81001; 81025; 87480; 87491; 87510; 87591; 87660; 99283

== ENCOUNTER 2021-01-05 16:41 | Emergency (ER) | payer OTHER, SELFPAY ==
--- NOTE | ~2021-01-05 | XR_ITS ---
EXAMINATION: XR HIP, RIGHT CLINICAL INFORMATION: Pain COMPARISON: None TECHNIQUE: Two views of the right hip and one view of the pelvis. FINDINGS: Bone alignment is normal. No fracture or dislocation is seen. There is a small soft tissue calcification or ossification adjacent to the superior lateral right hip joint. The right hip joint is otherwise normal. Bones of the pelvis are unremarkable. There are fallopian tube closure devices in the pelvis. There are bilateral pelvic calcifications probably representing calcified phleboliths. Soft tissues are otherwise unremarkable. XR/XR hip RT min 2V IMPRESSION: Small soft tissue calcification or ossification adjacent to the superior lateral right hip joint otherwise unremarkable exam.
[2021-01-05 17:07] VITALS: BP 112/76; PULSE 101; RESP 16; TEMP 36.1; O2SAT 97; BMI 34.5
--- NOTE | 2021-01-05 18:23 | ED.GENADULT ---
HPI - General Adult General Chief complaint: Extremity Problem Stated complaint: hip pain Time Seen by Provider: 01/05/21 16:56 History of Present Illness HPI narrative: Patient complains of right hip pain and right low back pain radiating down to the toes there is no fall no injury no numbness no weakness no tingling no dysuria no frequency no incontinence no changes to bowel or bladder Related Data Home Medications Medication Instructions Recorded Confirmed amlodipine 10 mg tablet 10 mg PO DAILY 12/20/20 clonazepam 0.5 mg tablet 0.25 mg PO BEDTIME 12/20/20 cyclobenzaprine 10 mg tablet 10 mg PO BEDTIME 12/20/20 duloxetine 60 mg capsule,delayed 60 mg PO DAILY 12/20/20 release empagliflozin 10 mg tablet 10 mg PO DAILY 12/20/20 ferrous sulfate 325 mg (65 mg 325 mg PO DAILY 12/20/20 iron) tablet insulin glargine 100 unit/mL 25 unit SUBCUT BID ml 12/20/20 subcutaneous solution insulin lispro 200 unit/mL (3 mL) 20 unit SUBCUT QIDACHS 12/20/20 subcutaneous pen lisinopril 10 mg tablet 10 mg PO DAILY 12/20/20 melatonin 10 mg capsule 10 mg PO BEDTIME PRN 12/20/20 promethazine 25 mg tablet 25 mg PO TID PRN 12/20/20 sennosides 8.6 mg-docusate sodium 1 tab-cap PO BEDTIME 12/20/20 50 mg tablet topiramate 200 mg capsule 200 mg PO DAILY 12/20/20 sprinkle,extended release 24 hr Previous Rx's Medication Instructions Recorded benzonatate [Tessalon Perles] 100 mg PO TID PRN #14 cap 07/10/20 prednisone 40 mg PO DAILY 5 Days #10 tab 07/10/20 omeprazole magnesium 20 mg 20 mg PO BID 28 Days #56 tab 12/20/20 tablet,delayed release polyethylene glycol 3350 17 238 g PO ONCE #238 g 12/20/20 gram/dose oral powder hydrocortisone 1 appl TOPICAL TID PRN #28.35 g 12/22/20 cyclobenzaprine 5 mg PO TID PRN #10 tab 01/05/21 cyclobenzaprine 5 mg PO TID PRN #10 tab 01/05/21 oxycodone 5 mg PO Q6H PRN #10 tab 01/05/21 oxycodone 5 mg PO Q6H PRN #7 tab 01/05/21 Allergies Allergy/AdvReac Type Severity Reaction Status Date / Time meloxicam Allergy Mild kidney Verified 01/05/21 17:11 failure amitriptyline Allergy Unknown Verified 01/05/21 17:11 gabapentin Allergy Difficulty Verified 01/05/21 17:11 Breathing Iodinated Contrast Media Allergy Unknown Verified 01/05/21 17:11 sulfamethoxazole Allergy Itching Verified 01/05/21 17:11 [From Bactrim] trimethoprim [From Bactrim] Allergy Itching Verified 01/05/21 17:11 Review of Systems Review of Systems: Positive for right low back pain and right hip pain negatives are no fever no chills no dizziness no weakness no headache no neck pain no chest pain no shortness of breath no abdominal pain no nausea vomiting or diarrhea no dysuria no frequency no incontinence no numbness weakness or tingling PMFSH Past Medical History Source: nursing notes reviewed Medical History Adrenal mass Anemia Anxiety Asthma Carpal tunnel syndrome Depression Diabetes Fibromyalgia GERD (gastroesophageal reflux disease) Hypertension Migraine Sleep apnea Social History Social History Alcohol intake: never Advance Directives: No Advance Directives Information Provided: No Physical Exam Vital Signs: Vital Signs: Last Vital Signs Temp 97 F 01/05/21 17:07 Pulse 101 H 01/05/21 17:07 Resp 16 01/05/21 17:07 BP 112/76 01/05/21 17:07 Pulse Ox 97 01/05/21 17:07 Body Mass Index 34.5 General appearance no acute distress Head is normocephalic atraumatic Neck is supple and nontender Chest is clear to auscultation bilateral No respiratory distress Heart no murmur Abdomen soft nontender Back exam there is right lower lumbar and gluteal tenderness, skin is normal, pain is reproduced with movement, there is no bony tenderness no CVA tenderness Extremities the right hip had some tenderness but had a full range of motion patient can straight leg lift and can walk and bear weight with a mild limp Leg is neurovascular intact distal Other extremities normal Skin no rash Neuro no gross motor sensory deficit Course Course Course Narrative: X-ray of the hip was normal Back pain is consistent with lumbar muscle strain, no neurologic impairment and patient is discharged Discharge Plan Discharge Clinical Impression: Sciatica, Arthralgia of hip, right Patient Disposition: Home, Self-Care Additional Instructions: X-ray showed some possibly arthritic changes so follow with the orthopedist for further evaluation of right hip For back pain if needed follow with primary doctor for physical therapy Return any concerns Use extra-strength Tylenol as a baseline if needed you can take the oxycodone Flexeril as a muscle relaxer Prescriptions: New oxycodone 5 mg tablet 5 mg PO Q6H PRN (Reason: pain) Qty: 10 RF: 0 cyclobenzaprine 5 mg tablet 5 mg PO TID PRN (Reason: muscle spasm) Qty: 10 RF: 0 cyclobenzaprine 5 mg tablet 5 mg PO TID PRN (Reason: muscle spasm) Qty: 10 RF: 0 oxycodone 5 mg tablet 5 mg PO Q6H PRN (Reason: pain) Qty: 7 RF: 0 No Action hydrocortisone 1 % cream 1 appl topical TID PRN (Reason: skin irritation) Qty: 28.35 RF: 0 prednisone 20 mg tablet 40 mg PO DAILY 5 Days Qty: 10 RF: 0 benzonatate [Tessalon Perles] 100 mg capsule 100 mg PO TID PRN (Reason: cough) Qty: 14 RF: 0 Humalog KwikPen Insulin 200 unit/mL (3 mL) insulin pen 20 unit subcut QIDACHS RF: 0 Lantus U-100 Insulin 100 unit/mL solution 25 unit subcut BID RF: 0 Jardiance 10 mg tablet 10 mg PO DAILY RF: 0 sennosides-docusate sodium [Senexon-S] 8.6-50 mg tablet 1 tab-cap PO BEDTIME RF: 0 clonazepam 0.5 mg tablet 0.25 mg PO BEDTIME RF: 0 duloxetine 60 mg capsule,delayed release(DR/EC) 60 mg PO DAILY RF: 0 topiramate 200 mg cap,sprinkle,ER 24hr dose pack 200 mg PO DAILY RF: 0 lisinopril 10 mg tablet 10 mg PO DAILY RF: 0 ferrous sulfate 325 mg (65 mg iron) tablet 325 mg PO DAILY RF: 0 cyclobenzaprine 10 mg tablet 10 mg PO BEDTIME RF: 0 amlodipine 10 mg tablet 10 mg PO DAILY RF: 0 promethazine 25 mg tablet 25 mg PO TID PRNRF: 0 melatonin 10 mg capsule 10 mg PO BEDTIME PRNRF: 0 omeprazole magnesium [Prilosec OTC] 20 mg tablet,delayed release (DR/EC) 20 mg PO BID 28 Days Qty: 56 RF: 2 polyethylene glycol 3350 [Miralax] 17 gram/dose powder 238 g PO ONCE Qty: 238 RF: 0 Interventions: ED Discharge Assessment Last Done: 01/05/21 19:29 Discharge Date/Time: 01/05/21 19:02
[2021-01-05] MEDS: Acetaminophen 325 MG TABLET 650 MG PO (19:10)
== END 2021-01-05 19:02 | disposition home or self-care (01) ==
PROVIDERS: Emergency Provider Emergency Medicine Emergency Medical Services; PCP Internal Medicine
DX: M54.31 Sciatica, right side (principal); M25.551 Pain in right hip; M54.5 Low back pain; Z79.899 Other long term (current) drug therapy
CPT/HCPCS: 73502; 99284

== ENCOUNTER 2021-02-01 09:19 | Day surgery (SDC) | payer OTHER, SELFPAY ==
--- NOTE | 2021-01-31 10:11 | HO.ANESPROP2 ---
Documented by User: Anna Garcia 01/31/21 10:13 HPI - Anesthesia Eval Consult details Narrative: 46yo F for Upper Endoscopy and Colonoscopy *multiple allergies* PMFSH Past Medical History Medical History (Updated 01/31/21 @ 10:12 by Anna Garcia) Adrenal mass Anemia Anxiety Asthma Carpal tunnel syndrome Depression Diabetes Fibromyalgia GERD (gastroesophageal reflux disease) Hypertension Migraine Sleep apnea Social History Social History Alcohol intake: never Patient Tobacco Use Status: Never used Tobacco Use of substances other than those prescribed or required for medical reasons: No Have you been hit, kicked, punched, or otherwise hurt by someone within the past year? If so, by whom?: No Are you DNR?: No Advance Directives: No Advance Directives Information Provided: Yes Meds Allergies Allergy/AdvReac Type Severity Reaction Status Date / Time meloxicam Allergy Mild kidney Verified 02/01/21 10:03 failure amitriptyline Allergy Unknown Verified 02/01/21 10:03 gabapentin Allergy Difficulty Verified 02/01/21 10:03 Breathing Iodinated Contrast Media Allergy Unknown Verified 02/01/21 10:03 sulfamethoxazole Allergy Itching Verified 02/01/21 10:03 [From Bactrim] trimethoprim [From Bactrim] Allergy Itching Verified 02/01/21 10:03 Home Medications Medication Instructions Recorded Confirmed Last Taken Type amlodipine 10 mg tablet 10 mg PO DAILY 12/20/20 Unknown History clonazepam 0.5 mg tablet 0.25 mg PO BEDTIME 12/20/20 Unknown History cyclobenzaprine 10 mg tablet 10 mg PO BEDTIME 12/20/20 Unknown History duloxetine 60 mg capsule,delayed 60 mg PO DAILY 12/20/20 Unknown History release empagliflozin 10 mg tablet 10 mg PO DAILY 12/20/20 Unknown History ferrous sulfate 325 mg (65 mg 325 mg PO DAILY 12/20/20 Unknown History iron) tablet insulin glargine 100 unit/mL 25 unit SUBCUT BID ml 12/20/20 Unknown History subcutaneous solution insulin lispro 200 unit/mL (3 mL) 20 unit SUBCUT QIDACHS 12/20/20 Unknown History subcutaneous pen lisinopril 10 mg tablet 10 mg PO DAILY 12/20/20 Unknown History melatonin 10 mg capsule 10 mg PO BEDTIME PRN 12/20/20 Unknown History promethazine 25 mg tablet 25 mg PO TID PRN 12/20/20 Unknown History sennosides 8.6 mg-docusate sodium 1 tab-cap PO BEDTIME 12/20/20 Unknown History 50 mg tablet topiramate 200 mg capsule 200 mg PO DAILY 12/20/20 Unknown History sprinkle,extended release 24 hr Exam Exam Date and Time: January 31, 2021 1011 Pertinent Lab Results Pertinent Lab Results: Laboratory Tests 10/31/20 10/31/20 12:42 12:42 WBC 11.3 H Hgb 11.8 L Hct 38.7 Plt Count 209 Sodium 139 Potassium 4.4 Chloride 104 Carbon Dioxide 24 BUN 14 Creatinine 0.85 Narrative Narrative: EKG 10/2020 Vent. Rate : 091 BPM Atrial Rate : 091 BPM P-R Int : 134 ms QRS Dur : 092 ms QT Int : 372 ms P-R-T Axes : 063 035 020 degrees QTc Int : 457 ms Normal sinus rhythm Possible Left atrial enlargement Borderline ECG When compared with ECG of 10-JUL-2020 15:46, No significant change was found Assessment and Plan Assessment Anesthesia Assessment: Chart Reviewed Documented by User: Zulma Elliott 02/01/21 10:08 [facility] Past Medical History Medical History (Updated 01/31/21 @ 10:12 by Anna Garcia) Adrenal mass Anemia Anxiety Asthma Carpal tunnel syndrome Depression Diabetes Fibromyalgia GERD (gastroesophageal reflux disease) Hypertension Migraine Sleep apnea Social History Social History Alcohol intake: never Patient Tobacco Use Status: Never used Tobacco Use of substances other than those prescribed or required for medical reasons: No Have you been hit, kicked, punched, or otherwise hurt by someone within the past year? If so, by whom?: No Are you DNR?: No Advance Directives: No Advance Directives Information Provided: Yes Meds Allergies Allergy/AdvReac Type Severity Reaction Status Date / Time meloxicam Allergy Mild kidney Verified 02/01/21 10:03 failure amitriptyline Allergy Unknown Verified 02/01/21 10:03 gabapentin Allergy Difficulty Verified 02/01/21 10:03 Breathing Iodinated Contrast Media Allergy Unknown Verified 02/01/21 10:03 sulfamethoxazole Allergy Itching Verified 02/01/21 10:03 [From Bactrim] trimethoprim [From Bactrim] Allergy Itching Verified 02/01/21 10:03 Home Medications Medication Instructions Recorded Confirmed Last Taken Type amlodipine 10 mg tablet 10 mg PO DAILY 12/20/20 Unknown History clonazepam 0.5 mg tablet 0.25 mg PO BEDTIME 12/20/20 Unknown History cyclobenzaprine 10 mg tablet 10 mg PO BEDTIME 12/20/20 Unknown History duloxetine 60 mg capsule,delayed 60 mg PO DAILY 12/20/20 Unknown History release empagliflozin 10 mg tablet 10 mg PO DAILY 12/20/20 Unknown History ferrous sulfate 325 mg (65 mg 325 mg PO DAILY 12/20/20 Unknown History iron) tablet insulin glargine 100 unit/mL 25 unit SUBCUT BID ml 12/20/20 Unknown History subcutaneous solution insulin lispro 200 unit/mL (3 mL) 20 unit SUBCUT QIDACHS 12/20/20 Unknown History subcutaneous pen lisinopril 10 mg tablet 10 mg PO DAILY 12/20/20 Unknown History melatonin 10 mg capsule 10 mg PO BEDTIME PRN 12/20/20 Unknown History promethazine 25 mg tablet 25 mg PO TID PRN 12/20/20 Unknown History sennosides 8.6 mg-docusate sodium 1 tab-cap PO BEDTIME 12/20/20 Unknown History 50 mg tablet topiramate 200 mg capsule 200 mg PO DAILY 12/20/20 Unknown History sprinkle,extended release 24 hr Exam Airway Mallampati Class: II TM Dist: >3cm Neck ROM: Full Heart: rrr Lungs: cta Assessment and Plan Assessment Anesthesia Assessment: Anesthesia Plan Discussed and Chart Reviewed Final Anesthetic Review NPO: Yes (Sip water with med) ASA Class: III Final Preanesthetic Review: No Changes in Pt Med Stat and Consent Obtained/Reviewed Patient Risk: Intermediate Procedure Risk: Intermediate Anesthetic Plan Anesthetic Plan: MAC: Disposition: Standard PACU
[2021-02-01 09:39] VITALS: BMI 35.1
[2021-02-01 09:41] LABS: UPreg QC Valid YES; Urine Pregnancy NEGATIVE (NEGATIVE)
[2021-02-01 09:46] LABS: Glucose, Whole Blood 180 mg/dL (60-115)
--- NOTE | 2021-02-01 09:55 | MHC.SHP ---
Pre-Procedural Eval Section B Chief Complaint: screening,epigastric pain Relevant Family History (Specify if Yes): No Relevant Social History: None Present Medications: see Short Stay Collaborative assessment Medical History: Significant History (Adrenal mass Anemia Anxiety Asthma Carpal tunnel syndrome Depression Diabetes Fibromyalgia GERD (gastroesophageal reflux disease) Hypertension Migraine Sleep apnea) History of Previous Operations: No relevant previous surgery Allergies: Allergies Allergy/AdvReac Type Severity Reaction Status Date / Time meloxicam Allergy Mild kidney Verified 01/05/21 17:11 failure amitriptyline Allergy Unknown Verified 01/05/21 17:11 gabapentin Allergy Difficulty Verified 01/05/21 17:11 Breathing Iodinated Contrast Media Allergy Unknown Verified 01/05/21 17:11 sulfamethoxazole Allergy Itching Verified 01/05/21 17:11 [From Bactrim] trimethoprim [From Bactrim] Allergy Itching Verified 01/05/21 17:11 Review of Systems Sugical H&P ROS: Negative: Constitution, Cardiovascular, Respiratory, Neurological, Psychiatric, Hem-Onc, Allergic/Immunologic, Gastrointestinal, Genitourinary, Musculoskeletal, Integumentary, Endocrine and Eyes/Ears/Nose/Throat Exam Surgical H&P Exam: Normal: HEENT, Normal: Heart, Normal: Lungs, Normal: Extremities, Normal: Abdomen, Normal: Skin and Normal: Neurological Plan Diagnosis/Plan: Unchanged I have reviewed the history and physical and performed a pertinent physical examination on my patient. No changes have occurred unless specified.
--- NOTE | 2021-02-01 10:14 | PM.OP ---
Brief Operative Note Date of Service: 02/01/21 Pre-op diagnosis: anemia, epigastric pain Post-op diagnosis: same Procedure: see op note Surgeon: Mounika Campbell MD Anesthesia: MAC Was an [employer] Dedicated Truck Driver used for this Procedure?: No Estimated blood loss (mL): 0 Condition: stable Disposition: PACU
--- NOTE | 2021-02-01 10:15 | P.OP_ITS ---
Operative Note Operative Note Date of Service: 02/01/21 Narrative: Operative Information Procedure Description: EGD, Colonoscopy FLEXIBLE TRANSORAL UPPER GASTROINTESTINAL ENDOSCOPY AND COLONOSCOPY PROCEDURE NOTE UPPER ENDOSCOPY Consent: Indications for the procedure and potential complications of bleeding, perforation, reaction to medications and missed diagnosis were discussed with the patient and informed consent was obtained. Instrument: Olympus GIF H 190 J mid size upper endoscope Monitoring: Vital signs and clinical assessment, continuous EKG monitoring, Pulse oximetry, Carbon Dioxide monitoring and blood pressure monitoring were done throughout the procedure. Procedure: The patient was placed in the left lateral decubitis position and pre-procedure medications were administered and a bite block was placed. The endoscope was inserted into the mouth and advanced under direct vision to the third part of duodenum. A careful inspection was made as the upper endoscope was withdrawn including a retroflexed examination of the proximal stomach; Findings and interventions are described below. Findings: Larynx:normal Esophagus: GE junction at 40 cm, diaphragm hiatus at 40 cm, mild esophagitis, bx taken from GEJ and random esophagus in separate jars Stomach: Patchy erythema. Biopsies were obtained. Grade 2 flap valve on retroflexed examination of the cardia. Seemed to be reduced gastric peristalsis, few benign appearing fundic gland polyps noted Duodenum: Normal bulb and descending duodenum, bx taken Intervention: Biopsies as noted above COLONOSCOPY Instrument: Olympus variable stiffness pediatric scope 190L Colonoscopy Monitoring: Vital signs and clinical assessment, continuous EKG monitoring, Pulse oximetry, Carbon Dioxide monitoring and blood pressure monitoring were done throughout the procedure. Colon withdrawal time was 10 minutes. Procedure: The patient was placed in the left lateral decubitis position and pre-procedure medications were administered. After a digital rectal examination of the ano-rectum, the video colonoscope was inserted into the rectum and advanced through the colon to the cecum/TI. The colonoscope was slowly withdrawn in a retrograde panoramic fashion and the colon mucosa was carefully examined including a retroflexed view of the rectum. Findings and interventions are described below. Procedure Difficulty: hard due to looping, used adult scope to get to cecum Findings: Terminal Ileum-normal, bx taken Random colon bx taken Cecum:normal Ascending Colon: normal Transverse Colon -normal Descending Colon:normal Sigmoid Colon: normal Rectum: Retroflexion with small internal hemorrhoids, grade I Anorectum - normal Colon preparation: [place] Bowel Preparation Scale Right colon; 2 Transverse colon: 2 Left colon; 2 (0 = Unprepared colon segment with mucosa not seen due to solid stool that cannot be cleared. 1 = Portion of mucosa of the colon segment seen, but other areas of the colon segment not well seen due to staining, residual stool and/or opaque liquid. 2 = Minor amount of residual staining, small fragments of stool and/or opaque liquid, but mucosa of colon segment seen well. 3 = Entire mucosa of colon segment seen well with no residual staining, small fragments of stool or opaque liquid) Impression and Post Procedure Diagnosis: Endoscopy Findings: gastritis esophagitis fundic gland polyp Colonoscopy Findings: internal hemorrhoids Plan: Await Pathology results Repeat Colonoscopy in 10 years or earlier if clinically indicated High fiber diet leaflet avoid straining at stool, epsom salts and sitz bath, anusol supps or cream gastric empty study if bx neg-- there was a lack of gastric movement Above findings were reviewed with the patient and relevant handouts were provided if indicated.
[2021-02-01 11:23] VITALS: BP 98/54; PULSE 82; RESP 16; TEMP 35.7; O2SAT 98
[2021-02-01 11:38] VITALS: BP 119/61; PULSE 76; RESP 16; TEMP 36.2; O2SAT 99
== END 2021-02-01 12:13 | disposition home or self-care (01) ==
PROVIDERS: Nurse Practitioner; PCP Internal Medicine; Visit Provider Internal Medicine Gastroenterology
PROC: (CPT 45380; principal; 2021-02-01 10:20)
DX: Z12.11 Encounter for screening for malignant neoplasm of colon (principal); K64.0 First degree hemorrhoids; K29.50 Unspecified chronic gastritis without bleeding; K31.7 Polyp of stomach and duodenum; K20.80 Other esophagitis without bleeding; K21.9 Gastro-esophageal reflux disease without esophagitis; I10 Essential (primary) hypertension; K44.9 Diaphragmatic hernia without obstruction or gangrene; G47.33 Obstructive sleep apnea (adult) (pediatric); D64.9 Anemia, unspecified; J45.909 Unspecified asthma, uncomplicated; E11.9 Type 2 diabetes mellitus without complications; Z79.4 Long term (current) use of insulin; Z79.899 Other long term (current) drug therapy; Z88.8 Allergy status to other drugs, medicaments and biological substances; Z88.2 Allergy status to sulfonamides; Z91.041 Radiographic dye allergy status; Z87.891 Personal history of nicotine dependence
CPT/HCPCS: 45380; 43239; 81025; 82947; 88305; 88342

== ENCOUNTER 2021-02-20 15:50 | Emergency (ER) | payer OTHER, SELFPAY ==
[2021-02-20 16:32] VITALS: BP 112/64; PULSE 90; RESP 18; TEMP 36.7; O2SAT 100; BMI 34.9
--- NOTE | 2021-02-20 17:31 | ED_ITS ---
HPI - General Adult General Chief complaint: General Medical Stated complaint: siactic pain Time Seen by Provider: 02/20/21 17:31 Source: patient Mode of arrival: ambulatory Limitations: no limitations History of Present Illness HPI narrative: 46-year-old female with multiple medical comorbidities who presents to the ED with acute on chronic right-sided back / sciatic pain. Patient states over the last month and a half she has had a flare-up for sciatic discomfort. Has been seen multiple times in the emergency room and by her primary care doctor. Has been on multiple medications all of which mask the pain temporarily because rebound symptoms including cyclobenzaprine, tramadol, lidocaine patches, oxycodone, Valium. Patient denies any numbness or tingling in the upper lower extremities denies any numbness or tingling in the genitalia. Denies changes or issues with bowel or bladder habits. Denies abdominal pain, nausea, vomiting, diarrhea. Related Data Home Medications Medication Instructions Recorded Confirmed amlodipine 10 mg tablet 10 mg PO DAILY 12/20/20 clonazepam 0.5 mg tablet 0.25 mg PO BEDTIME 12/20/20 cyclobenzaprine 10 mg tablet 10 mg PO BEDTIME 12/20/20 duloxetine 60 mg capsule,delayed 60 mg PO DAILY 12/20/20 release empagliflozin 10 mg tablet 10 mg PO DAILY 12/20/20 ferrous sulfate 325 mg (65 mg 325 mg PO DAILY 12/20/20 iron) tablet insulin glargine 100 unit/mL 25 unit SUBCUT BID ml 12/20/20 subcutaneous solution insulin lispro 200 unit/mL (3 mL) 20 unit SUBCUT QIDACHS 12/20/20 subcutaneous pen lisinopril 10 mg tablet 10 mg PO DAILY 12/20/20 melatonin 10 mg capsule 10 mg PO BEDTIME PRN 12/20/20 promethazine 25 mg tablet 25 mg PO TID PRN 12/20/20 sennosides 8.6 mg-docusate sodium 1 tab-cap PO BEDTIME 12/20/20 50 mg tablet topiramate 200 mg capsule 200 mg PO DAILY 12/20/20 sprinkle,extended release 24 hr Previous Rx's Medication Instructions Recorded benzonatate [Tessalon Perles] 100 mg PO TID PRN #14 cap 07/10/20 prednisone 40 mg PO DAILY 5 Days #10 tab 07/10/20 omeprazole magnesium 20 mg 20 mg PO BID 28 Days #56 tab 12/20/20 tablet,delayed release polyethylene glycol 3350 17 238 g PO ONCE #238 g 12/20/20 gram/dose oral powder hydrocortisone 1 appl TOPICAL TID PRN #28.35 g 12/22/20 cyclobenzaprine 5 mg PO TID PRN #10 tab 01/05/21 cyclobenzaprine 5 mg PO TID PRN #10 tab 01/05/21 oxycodone 5 mg PO Q6H PRN #10 tab 01/05/21 oxycodone 5 mg PO Q6H PRN #7 tab 01/05/21 diazepam [Valium] 5 mg PO TID PRN #9 tab 02/20/21 Allergies Allergy/AdvReac Type Severity Reaction Status Date / Time meloxicam Allergy Mild kidney Verified 02/20/21 17:38 failure amitriptyline Allergy Unknown Verified 02/20/21 17:38 gabapentin Allergy Difficulty Verified 02/20/21 17:38 Breathing Iodinated Contrast Media Allergy Unknown Verified 02/20/21 17:38 sulfamethoxazole Allergy Itching Verified 02/20/21 17:38 [From Bactrim] trimethoprim [From Bactrim] Allergy Itching Verified 02/20/21 17:38 Review of Systems Review of Systems: Constitutional : No Weight loss, No Fever, No Chills, No Night Sweats, No Fatigue, No Malaise ENT/Mouth : No Hearing loss, No Ear Pain, No Nasal Congestion, No Sinus Pain, No Hoarseness, No sore throat, No Rhinorrhea, No Swallowing Difficulty Eyes: No Eye Pain, No Swelling, No Redness, No Foreign Body, No Discharge, No Vision Changes Cardiovascular : No Chest Pain, No SOB, No Dyspnea on Exertion, No Orthopnea, No Edema, No Palpitations Respiratory : No Cough, No Sputum, No Wheezing, No Smoke Exposure, No Dyspnea Gastrointestinal : No Nausea, No Vomiting, No Diarrhea, No Constipation, No abdominal Pain, No Hematochezia, No Melena Genitourinary : no irregular bleeding, No Dysuria, No Urinary Frequency, No Hematuria, No Urinary Incontinence, No Urgency, No Flank Pain, No Urinary Flow Changes, No Hesitancy Musculoskeletal : No joint pain, No Myalgias, No Joint Swelling, + back pain Skin : No Skin Lesions, No rash Neuro : No Weakness, No Numbness, No Paresthesias, No Loss of Consciousness, No Dizziness, No Headache Psych : No Anxiety/Panic, No Depression, No SI/HI/AH/VH, No Social Issues, Heme/Lymph: No Bruising, No Bleeding,No Lymphadenopathy Endocrine : No Polyuria, No Polydipsia, No Temperature Intolerance [facility] Past Medical History Attestation statement: The following information was validated with the patient. Source: old records reviewed and obtained from family Medical History (Updated 02/20/21 @ 17:37 by MIGUEL A Spring) Adrenal mass Anemia Anxiety Asthma Carpal tunnel syndrome Depression Diabetes Fibromyalgia GERD (gastroesophageal reflux disease) Hypertension Migraine Sleep apnea Social History Social History Alcohol intake: never Patient Tobacco Use Status: Never used Tobacco Advance Directives: No Advance Directives Information Provided: No Patient : No Physical Exam Vital Signs: Vital Signs: Last Vital Signs Temp 98.1 F 02/20/21 16:32 Pulse 90 02/20/21 16:32 Resp 18 02/20/21 16:32 BP 112/64 02/20/21 16:32 Pulse Ox 100 02/20/21 16:32 Body Mass Index 34.9 vital signs have been reviewed as normal and appeared to be correct. Blood pressure normal. Heart rate normal. Respiration rate normal. Temperature normal. Oxygen saturation normal. Appearance: Alert. Oriented X3. No acute distress. Head: Normal external exam. Normocephalic. Atraumatic. No Trivedi signs noted. No raccoon eyes noted Eyes: Conjunctiva and sclera normal. ENT: EAC normal. Moist mucous membranes. No drooling noted. No muffled voice noted. Neck: Normal inspection. Neck supple. FROM. No meningeal signs. CVS: Pulses normal throughout. Respiratory: No respiratory distress. Painless inspiration. No accessory muscle usage noted Abdomen: No visible injury noted. Back: Full range of motion noted. Mild Reproducible right lower lumbar discomfort as well as left lower lumbar discomfort. No midline tenderness step- offs or acute deformities no flank tenderness on exam. Skin: Skin warm and dry. Normal skin color. Normal skin turgor. Extremities: No lower extremity edema. Extremities exhibit normal range of motion. Equal strength and sensation to bilateral lower extremities Neuro: Oriented X 3. No motor deficit. No sensory deficit. neurovascularly intact bilateral lower extremities as well as upper extremities Medical Decision Making MDM Narrative Medical decision making narrative: patient's vital signs are stable and she is afebrile. Patient presenting for acute on chronic right-sided sciatic discomfort denies reoccur injury or trauma. Patient has been on multiple medications which briefly mask pain but return symptoms after discontinuing. Denies any urinary or bowel symptoms denies any neurologic abnormalities. Patient's neurovascular exam is within normal limits no flank tenderness on exam no urinary symptoms. Feel that this is patient's chronic sciatica that is flaring states Valium seemed to help the most in the past will give short course of oral Valium for symptomatic relief at home as well as referral to search engine marketing specialist due to chronic symptoms patient is comfortable with this plan no red flags on exam will discharge home at this time. Discharge Plan Discharge Clinical Impression: Sciatica Qualifiers: Laterality: right Qualified Code(s): M54.31 - Sciatica, right side Patient Disposition: Home, Self-Care Instructions: Sciatica (ED), Lumbar Radiculopathy (ED), Lower Back Exercises (ED) Prescriptions: New diazepam [Valium] 5 mg tablet 5 mg PO TID PRN (Reason: muscle spasm) Qty: 9 RF: 0 No Action hydrocortisone 1 % cream 1 appl topical TID PRN (Reason: skin irritation) Qty: 28.35 RF: 0 oxycodone 5 mg tablet 5 mg PO Q6H PRN (Reason: pain) Qty: 10 RF: 0 cyclobenzaprine 5 mg tablet 5 mg PO TID PRN (Reason: muscle spasm) Qty: 10 RF: 0 cyclobenzaprine 5 mg tablet 5 mg PO TID PRN (Reason: muscle spasm) Qty: 10 RF: 0 oxycodone 5 mg tablet 5 mg PO Q6H PRN (Reason: pain) Qty: 7 RF: 0 prednisone 20 mg tablet 40 mg PO DAILY 5 Days Qty: 10 RF: 0 benzonatate [Tessalon Perles] 100 mg capsule 100 mg PO TID PRN (Reason: cough) Qty: 14 RF: 0 Humalog KwikPen Insulin 200 unit/mL (3 mL) insulin pen 20 unit subcut QIDACHS RF: 0 Lantus U-100 Insulin 100 unit/mL solution 25 unit subcut BID RF: 0 Jardiance 10 mg tablet 10 mg PO DAILY RF: 0 sennosides-docusate sodium [Senexon-S] 8.6-50 mg tablet 1 tab-cap PO BEDTIME RF: 0 clonazepam 0.5 mg tablet 0.25 mg PO BEDTIME RF: 0 duloxetine 60 mg capsule,delayed release(DR/EC) 60 mg PO DAILY RF: 0 topiramate 200 mg cap,sprinkle,ER 24hr dose pack 200 mg PO DAILY RF: 0 lisinopril 10 mg tablet 10 mg PO DAILY RF: 0 ferrous sulfate 325 mg (65 mg iron) tablet 325 mg PO DAILY RF: 0 cyclobenzaprine 10 mg tablet 10 mg PO BEDTIME RF: 0 amlodipine 10 mg tablet 10 mg PO DAILY RF: 0 promethazine 25 mg tablet 25 mg PO TID PRNRF: 0 melatonin 10 mg capsule 10 mg PO BEDTIME PRNRF: 0 omeprazole magnesium [Prilosec OTC] 20 mg tablet,delayed release (DR/EC) 20 mg PO BID 28 Days Qty: 56 RF: 2 polyethylene glycol 3350 [Miralax] 17 gram/dose powder 238 g PO ONCE Qty: 238 RF: 0 Referrals: Mary Gallegos MD [Physician] - 1 week Interventions: ED Discharge Assessment Last Done: 02/20/21 17:47 Discharge Date/Time: 02/20/21 17:50 Print Language: Ukrainian
[2021-02-20] MEDS: diazePAM 5 MG TABLET PO (17:39)
== END 2021-02-20 17:50 | disposition home or self-care (01) ==
PROVIDERS: Emergency Provider Emergency Medicine
DX: M54.31 Sciatica, right side (principal); Z79.899 Other long term (current) drug therapy
CPT/HCPCS: 99284

== ENCOUNTER 2021-02-21 10:37 | Outpatient (REF) | payer OTHER, SELFPAY ==
[2021-02-21 17:36] LABS: Folate 17.1 ng/mL (> or = 4.0); Vitamin B12 461 pg/mL (200-900)
[2021-02-23 10:26] LABS: IgA 209 mg/dL (47-310); IgG 1043 mg/dL (600-1640); IgM 80 mg/dL (50-300)
[2021-02-24 13:17] LABS: Gliadin Deamidated IgA Ab 4 Units; Gliadin Deamidated IgG Ab 2 Units
[2021-02-24 17:46] LABS: Transglutaminase Ab IgG 1 U/mL; Transglutaminase IgA 1 U/mL
== END 2021-02-21 10:38 | disposition home or self-care (01) ==
LOC: HO.LAB 10:37
PROVIDERS: PCP Internal Medicine; Visit Provider Internal Medicine Gastroenterology
DX: R10.33 Periumbilical pain (principal); G89.29 Other chronic pain; K29.80 Duodenitis without bleeding
CPT/HCPCS: 36415; 82607; 82746; 82784; 83516

== ENCOUNTER 2021-03-12 17:40 | Emergency (ER) | payer OTHER, SELFPAY ==
[2021-03-12 18:05] VITALS: BP 133/62; PULSE 94; RESP 18; TEMP 35.7; O2SAT 100; BMI 34.5
== END 2021-03-12 21:31 | disposition left against medical advice (07) ==
PROVIDERS: Emergency Provider Emergency Medicine; PCP Internal Medicine
DX: N23 Unspecified renal colic (principal)
CPT/HCPCS: 99283

== ENCOUNTER 2021-04-30 13:44 | Emergency (ER) | payer OTHER, SELFPAY ==
--- NOTE | 2021-04-30 | ECG_ITS ---
Test Reason : CP Blood Pressure : / mmHG Vent. Rate : 079 BPM Atrial Rate : 079 BPM P-R Int : 138 ms QRS Dur : 084 ms QT Int : 370 ms P-R-T Axes : 051 033 026 degrees QTc Int : 424 ms Normal sinus rhythm Normal ECG When compared with ECG of 31-OCT-2020 11:29, No significant change was found Referred By: Generic ED Physician Electronically Signed By:OLENA VASQUEZ
[2021-04-30 13:52] VITALS: BP 140/72; PULSE 86; RESP 16; TEMP 36.2; O2SAT 98; BMI 34.2
[2021-04-30 15:51] VITALS: BP 116/66; PULSE 80; RESP 18; TEMP 36.6; O2SAT 100
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
== END 2021-04-30 17:18 | disposition home or self-care (01) ==
PROVIDERS: Emergency Provider Emergency Medicine Emergency Medical Services; PCP Internal Medicine
DX: R07.89 Other chest pain (principal); M54.5 Low back pain; Z79.899 Other long term (current) drug therapy
CPT/HCPCS: 93005; 99283; 99284

== ENCOUNTER 2021-05-13 13:36 | Emergency (ER) | payer OTHER, SELFPAY ==
--- NOTE | 2021-05-13 | ECG_ITS ---
Test Reason : CHEST PAIN Blood Pressure : / mmHG Vent. Rate : 089 BPM Atrial Rate : 089 BPM P-R Int : 144 ms QRS Dur : 084 ms QT Int : 364 ms P-R-T Axes : 067 038 021 degrees QTc Int : 442 ms Normal sinus rhythm Possible Left atrial enlargement Borderline ECG When compared with ECG of 30-APR-2021 14:04, No significant change was found Referred By: Generic ED Physician Electronically Signed By:OLENA VASQUEZ
--- NOTE | ~2021-05-13 | XR_ITS ---
EXAMINATION: XR CHEST CLINICAL INFORMATION: Shortness of breath. COMPARISON: 10/31/2020 chest radiograph. TECHNIQUE: Frontal view of the chest was obtained. FINDINGS: No significant abnormality is noted involving the heart, lungs, mediastinum, bony thorax or soft tissues. XR/XR chest 1V IMPRESSION: No acute cardiopulmonary process.
[2021-05-13 13:38] VITALS: BP 150/73; PULSE 95; RESP 16; TEMP 36.2; O2SAT 100; BMI 34.9
[2021-05-13 16:26] LABS: Hematocrit 38.4 % (37-47); Hemoglobin 11.8 g/dl (12.0-16.0); Mean Corpuscular HGB Conc 30.7 g/dl (31.0-35.0); Mean Corpuscular Hemoglobin 24.4 pg (27.0-33.0); Mean Corpuscular Volume 79.3 fL (80-98); Mean Platelet Volume 10.6 fL (9.4-12.3); Platelet Count 305 X10*3/uL (160-400); Red Blood Count 4.84 X10*6/uL (4.20-5.50); Red Cell Distribution Width 17.8 % (11.0-16.0)
--- NOTE | 2021-05-13 16:39 | ED_ITS ---
HPI - Chest Pain General Chief Complaint: Chest Pain Stated Complaint: chest and back pain Time Seen by Provider: 05/13/21 16:31 History of Present Illness HPI narrative: Patient is 89year-old presents today with having had chest pain on the left side. Going to the arm there is some numbness there. If the pain is been on and off but there is always some pain since yesterday. No coughing or congestion no upper respiratory symptoms no diaphoresis. The pain is not changed her position is not changed with exertion. There is no specific trigger. Patient had a stress test done at [facility] last year was okay. Positive history of diabetes, hypertension. No history of GA. No family history of GA. Patient is from home. Related Data Home Medications Medication Instructions Recorded Confirmed amlodipine 10 mg tablet 10 mg PO DAILY 12/20/20 clonazepam 0.5 mg tablet 0.25 mg PO BEDTIME 12/20/20 cyclobenzaprine 10 mg tablet 10 mg PO BEDTIME 12/20/20 duloxetine 60 mg capsule,delayed 60 mg PO DAILY 12/20/20 release empagliflozin 10 mg tablet 10 mg PO DAILY 12/20/20 (Jardiance) ferrous sulfate 325 mg (65 mg 325 mg PO DAILY 12/20/20 iron) tablet insulin glargine 100 unit/mL 25 unit SUBCUT BID ml 12/20/20 subcutaneous solution (Lantus U-100 Insulin) insulin lispro 200 unit/mL (3 mL) 20 unit SUBCUT QIDACHS 12/20/20 subcutaneous pen (Humalog KwikPen U-200 Insulin) lisinopril 10 mg tablet 10 mg PO DAILY 12/20/20 melatonin 10 mg capsule 10 mg PO BEDTIME PRN 12/20/20 promethazine 25 mg tablet 25 mg PO TID PRN 12/20/20 sennosides 8.6 mg-docusate sodium 1 tab-cap PO BEDTIME 12/20/20 50 mg tablet (Senexon-S) topiramate 200 mg capsule 200 mg PO DAILY 12/20/20 sprinkle,extended release 24 hr albuterol sulfate 90 mcg/actuation 1 inh INHALATION Q4-6H PRN 02/21/21 breath activated powder inhaler,sensor (Proair Digihaler) budesonide 32 mcg/actuation nasal 1 spray INTRANASAL DAILY 02/21/21 spray Previous Rx's Medication Instructions Recorded benzonatate 100 mg capsule 100 mg PO TID PRN #14 cap 07/10/20 (Tessalon Perles) prednisone 20 mg tablet 40 mg PO DAILY 5 Days #10 tab 07/10/20 polyethylene glycol 3350 17 238 g PO ONCE #238 g 12/20/20 gram/dose oral powder (Miralax) hydrocortisone 1 % topical cream 1 appl TOPICAL TID PRN #28.35 g 12/22/20 cyclobenzaprine 5 mg tablet 5 mg PO TID PRN #10 tab 01/05/21 cyclobenzaprine 5 mg tablet 5 mg PO TID PRN #10 tab 01/05/21 oxycodone 5 mg tablet 5 mg PO Q6H PRN #10 tab 01/05/21 oxycodone 5 mg tablet 5 mg PO Q6H PRN #7 tab 01/05/21 diazepam 5 mg tablet (Valium) 5 mg PO TID PRN #9 tab 02/20/21 ondansetron 4 mg disintegrating 4 mg PO Q8H PRN #14 tab 02/21/21 tablet acetaminophen 500 mg tablet 500 mg PO Q6H PRN #20 tab 04/30/21 (Tylenol Extra Strength) cyclobenzaprine 5 mg tablet 5 mg PO Q8H PRN 5 Days #14 tab 04/30/21 lidocaine 5 % topical patch 1 patch TOPICAL DAILY PRN #30 ea 04/30/21 (Lidoderm) MDD remove after 12 hours pantoprazole 40 mg tablet,delayed 40 mg PO DAILY #60 tab 05/09/21 release Allergies Allergy/AdvReac Type Severity Reaction Status Date / Time meloxicam Allergy Mild kidney Verified 02/21/21 10:38 failure amitriptyline Allergy Unknown Verified 02/21/21 10:38 gabapentin Allergy Difficulty Verified 02/21/21 10:38 Breathing Iodinated Contrast Media Allergy Anaphylaxis Verified 03/12/21 18:10 sulfamethoxazole Allergy Itching Verified 02/21/21 10:38 [From Bactrim] trimethoprim [From Bactrim] Allergy Itching Verified 02/21/21 10:38 Review of Systems Review of Systems: Positive chest pain No shortness of breath no diaphoresis All systems reviewed otherwise negative Yes all other systems are reviewed and are negative PMFSH Past Medical History Attestation statement: The following information was validated with the patient. Source: unable to obtain Medical History Adrenal mass Anemia Anxiety Asthma Carpal tunnel syndrome Depression Diabetes Fibromyalgia GERD (gastroesophageal reflux disease) Hypertension Migraine Sleep apnea Surgical History History of esophagogastroduodenoscopy (EGD) Hx of colonoscopy Social History Social History Alcohol intake: never Patient Tobacco Use Status: Never used Tobacco Advance Directives: No Advance Directives Information Provided: No Physical Exam Vital Signs: Vital Signs: Last Vital Signs Temp 98.3 F 05/13/21 19:06 Pulse 80 05/13/21 19:06 Resp 19 05/13/21 19:06 BP 139/76 05/13/21 19:06 Pulse Ox 100 05/13/21 19:06 Body Mass Index 34.9 Appearance: Alert. Oriented X3. No acute distress. Eyes: Pupils equal, round and reactive to light. ENT: Pharynx normal. Neck: Normal inspection. Neck supple. No lymph nodes noted. No crepitus CVS: Normal heart rate and rhythm. Pulses normal. Normal S1 and S2 Respiratory: No respiratory distress. Breath sounds normal. No Wheezing. No rales Abdomen: Soft and nontender. No rigidity. No distention. good BS x4 Skin: Skin warm and dry. Normal skin color. Normal skin turgor. Extremities: No lower extremity edema. Neurovascular intact to all extremities. No Lacerations. No Rash Neuro: Oriented X 3. No motor deficit. No sensory deficit. Moving all extermities. No slurred speech MDM - Chest Pain MDM Narrative Medical decision making narrative: Patient has chest pain on the left chest, radiating to the arm. With a history of diabetes, hypertension. First set of cardiac enzyme were negative. she did not have any shortness of breath diaphoresis associated with the symptoms. Two sets of cardiac enzymes are negative. Patient well-appearing. Chest x-ray showed no pneumonia no pneumothorax. Given atypical pain. Does have multiple risk factor. Negative troponin x2 sets. Will discharge patient home. Close follow-up on an outpatient basis. Differential Diagnosis Differential diagnosis: Likely unstable angina pectoris, st elevation myocardial infarction and chest pain Medical Records Data Attestation: I reviewed the patient's medical records. Lab Data Attestation: I reviewed the patient's lab results. Result diagrams: 05/13/21 16:03 05/13/21 16:03 Labs: Lab Results 05/13/21 05/13/21 05/13/21 Range/Units 16:02 16:03 16:03 WBC 11.0 H (4.8-10.8) X10*3/uL RBC 4.84 (4.20-5.50) X10*6/uL Hgb 11.8 L (12.0-16.0) g/dl Hct 38.4 (37-47) % MCV 79.3 L (80-98) fL MCH 24.4 L (27.0-33.0) pg MCHC 30.7 L (31.0-35.0) g/dl RDW 17.8 H (11.0-16.0) % Plt Count 305 D (160-400) X10*3/uL MPV 10.6 (9.4-12.3) fL Absolute Nucleated RBC 0.000 (0.0-0.012) X10*3/uL Nucleated RBC % (auto) 0.0 (0.0-0.2) /100WBC Sodium 143 (135-145) mmol/L Potassium 4.1 (3.3-5.1) mmol/L Chloride 109 H (96-108) mmol/L Carbon Dioxide 26 (22-29) mmol/L Anion Gap 12 (12-20) BUN 16 (9-16) mg/dL Creatinine 0.84 (0.5-1.4) mg/dL Estim Creat Clear Calc 86.8 Estimated GFR > 60 Random Glucose 110 (60-115) mg/dL Calcium 9.5 (8.4-10.2) mg/dL Troponin I High Sens < 3.5 (<3.5-17.0) ng/L 05/13/21 Range/Units 19:05 WBC (4.8-10.8) X10*3/uL RBC (4.20-5.50) X10*6/uL Hgb (12.0-16.0) g/dl Hct (37-47) % MCV (80-98) fL MCH (27.0-33.0) pg MCHC (31.0-35.0) g/dl RDW (11.0-16.0) % Plt Count (160-400) X10*3/uL MPV (9.4-12.3) fL Absolute Nucleated RBC (0.0-0.012) X10*3/uL Nucleated RBC % (auto) (0.0-0.2) /100WBC Sodium (135-145) mmol/L Potassium (3.3-5.1) mmol/L Chloride (96-108) mmol/L Carbon Dioxide (22-29) mmol/L Anion Gap (12-20) BUN (9-16) mg/dL Creatinine (0.5-1.4) mg/dL Estim Creat Clear Calc Estimated GFR Random Glucose (60-115) mg/dL Calcium (8.4-10.2) mg/dL Troponin I High Sens < 3.5 (<3.5-17.0) ng/L Discharge Plan Discharge Clinical Impression: Chest pain Patient Disposition: Home, Self-Care Instructions: Chest Pain (ED) Prescriptions: No Action pantoprazole 40 mg tablet,delayed release (DR/EC) 40 mg PO DAILY Qty: 60 RF: 2 hydrocortisone 1 % cream 1 appl topical TID PRN (Reason: skin irritation) Qty: 28.35 RF: 0 oxycodone 5 mg tablet 5 mg PO Q6H PRN (Reason: pain) Qty: 10 RF: 0 cyclobenzaprine 5 mg tablet 5 mg PO TID PRN (Reason: muscle spasm) Qty: 10 RF: 0 cyclobenzaprine 5 mg tablet 5 mg PO TID PRN (Reason: muscle spasm) Qty: 10 RF: 0 oxycodone 5 mg tablet 5 mg PO Q6H PRN (Reason: pain) Qty: 7 RF: 0 prednisone 20 mg tablet 40 mg PO DAILY 5 Days Qty: 10 RF: 0 benzonatate [Tessalon Perles] 100 mg capsule 100 mg PO TID PRN (Reason: cough) Qty: 14 RF: 0 diazepam [Valium] 5 mg tablet 5 mg PO TID PRN (Reason: muscle spasm) Qty: 9 RF: 0 acetaminophen [Tylenol Extra Strength] 500 mg tablet 500 mg PO Q6H PRN (Reason: pain or fever) Qty: 20 RF: 0 lidocaine [Lidoderm] 5 % adhesive patch,medicated 1 patch topical DAILY MDD remove after 12 hours PRN (Reason: pain) Qty: 30 RF: 0 cyclobenzaprine 5 mg tablet 5 mg PO Q8H PRN (Reason: pain (scale score 7-10)) 5 Days Qty: 14 RF: 0 Humalog KwikPen Insulin 200 unit/mL (3 mL) insulin pen 20 unit subcut QIDACHS RF: 0 Lantus U-100 Insulin 100 unit/mL solution 25 unit subcut BID RF: 0 Jardiance 10 mg tablet 10 mg PO DAILY RF: 0 sennosides-docusate sodium [Senexon-S] 8.6-50 mg tablet 1 tab-cap PO BEDTIME RF: 0 clonazepam 0.5 mg tablet 0.25 mg PO BEDTIME RF: 0 duloxetine 60 mg capsule,delayed release(DR/EC) 60 mg PO DAILY RF: 0 topiramate 200 mg cap,sprinkle,ER 24hr dose pack 200 mg PO DAILY RF: 0 lisinopril 10 mg tablet 10 mg PO DAILY RF: 0 ferrous sulfate 325 mg (65 mg iron) tablet 325 mg PO DAILY RF: 0 cyclobenzaprine 10 mg tablet 10 mg PO BEDTIME RF: 0 amlodipine 10 mg tablet 10 mg PO DAILY RF: 0 promethazine 25 mg tablet 25 mg PO TID PRNRF: 0 melatonin 10 mg capsule 10 mg PO BEDTIME PRNRF: 0 polyethylene glycol 3350 [Miralax] 17 gram/dose powder 238 g PO ONCE Qty: 238 RF: 0 ondansetron 4 mg tablet,disintegrating 4 mg PO Q8H PRN (Reason: nausea and vomiting) Qty: 14 RF: 1 Referrals: Shital Perez MD [Primary Care Provider] - 2 days
[2021-05-13 16:42] LABS: Anion Gap 12 (12-20); Blood Urea Nitrogen 16 mg/dL (9-16); Calcium 9.5 mg/dL (8.4-10.2); Carbon Dioxide 26 mmol/L (22-29); Chloride 109 mmol/L (96-108); Creatinine Clr Calc Pharmacy 86.8; Estimated Glomerular Filt Rate > 60; Glucose Random 110 mg/dL (60-115); Potassium 4.1 mmol/L (3.3-5.1); Sodium 143 mmol/L (135-145)
[2021-05-13 16:51] LABS: Troponin-I High Sensitivity < 3.5 ng/L (<3.5-17.0)
[2021-05-13 17:51] VITALS: BP 128/68; PULSE 80; RESP 12
[2021-05-13] MEDS: Ibuprofen 400 MG TABLET PO (18:11)
[2021-05-13 19:06] VITALS: BP 139/76; PULSE 80; RESP 19; TEMP 36.8; O2SAT 100
[2021-05-13 19:31] LABS: Troponin-I High Sensitivity < 3.5 ng/L (<3.5-17.0)
== END 2021-05-13 20:21 | disposition home or self-care (01) ==
PROVIDERS: Emergency Provider Emergency Medicine Emergency Medical Services; PCP Internal Medicine
DX: R07.9 Chest pain, unspecified (principal); M54.50 Low back pain, unspecified; Z79.899 Other long term (current) drug therapy
CPT/HCPCS: 36415; 71045; 80048; 84484; 85027; 93005; 99283; 99284

== ENCOUNTER → 2021-06-09 10:48 | Outpatient (BNVA) | payer OTHER, SELFPAY | PROVIDERS: PCP Internal Medicine; Visit Provider Internal Medicine Gastroenterology ==

== ENCOUNTER 2021-08-31 14:12 | Emergency (ER) | payer OTHER, SELFPAY ==
--- NOTE | ~2021-08-31 | XR_ITS ---
EXAMINATION: XR CHEST CLINICAL INFORMATION: Cough COMPARISON: Chest radiograph from 05/13/2021 TECHNIQUE: Frontal view of the chest was obtained. FINDINGS: No focal consolidation. No pneumothorax. Trachea is midline. Cardiomediastinal silhouette is not enlarged. No large pleural effusions. Osseous structures are intact. Soft tissues are unremarkable. XR/XR chest 1V IMPRESSION: No acute cardiopulmonary process.
[2021-08-31 14:38] VITALS: BP 120/68; PULSE 90; RESP 18; TEMP 36.6; O2SAT 100; BMI 33.6
--- NOTE | 2021-08-31 15:28 | ED_ITS ---
HPI - URI/Sore Throat General Chief Complaint: Upper Respiratory Symptoms Stated Complaint: Covid+ 08/22/ Time Seen by Provider: 08/31/21 15:26 History of Present Illness HPI Narrative: patient complains of a continuous chest pain for several days, she does have COVID which was diagnosed 10 days ago and she was treated with monoclonal antibodies She is not short of breath, the pain is not exertional it is continuous it is not related to anything, no vomiting no diaphoresis no fainting no feeling faint Related Data Home Medications Medication Instructions Recorded Confirmed amlodipine 10 mg tablet 10 mg PO DAILY 12/20/20 clonazepam 0.5 mg tablet 0.25 mg PO BEDTIME 12/20/20 cyclobenzaprine 10 mg tablet 10 mg PO BEDTIME 12/20/20 duloxetine 60 mg capsule,delayed 60 mg PO DAILY 12/20/20 release empagliflozin 10 mg tablet 10 mg PO DAILY 12/20/20 (Jardiance) ferrous sulfate 325 mg (65 mg 325 mg PO DAILY 12/20/20 iron) tablet insulin glargine 100 unit/mL 25 unit SUBCUT BID ml 12/20/20 subcutaneous solution (Lantus U-100 Insulin) insulin lispro 200 unit/mL (3 mL) 20 unit SUBCUT QIDACHS 12/20/20 subcutaneous pen (Humalog KwikPen U-200 Insulin) lisinopril 10 mg tablet 10 mg PO DAILY 12/20/20 melatonin 10 mg capsule 10 mg PO BEDTIME PRN 12/20/20 promethazine 25 mg tablet 25 mg PO TID PRN 12/20/20 sennosides 8.6 mg-docusate sodium 1 tab-cap PO BEDTIME 12/20/20 50 mg tablet (Senexon-S) topiramate 200 mg capsule 200 mg PO DAILY 12/20/20 sprinkle,extended release 24 hr albuterol sulfate 90 mcg/actuation 1 inh INHALATION Q4-6H PRN 02/21/21 breath activated powder inhaler,sensor (Proair Digihaler) budesonide 32 mcg/actuation nasal 1 spray INTRANASAL DAILY 02/21/21 spray diclofenac sodium 75 mg 75 mg PO BID 06/09/21 tablet,delayed release Previous Rx's Medication Instructions Recorded benzonatate 100 mg capsule 100 mg PO TID PRN #14 cap 07/10/20 ([place]) prednisone 20 mg tablet 40 mg PO DAILY 5 Days #10 tab 07/10/20 polyethylene glycol 3350 17 238 g PO ONCE #238 g 12/20/20 gram/dose oral powder (Miralax) hydrocortisone 1 % topical cream 1 appl TOPICAL TID PRN #28.35 g 12/22/20 cyclobenzaprine 5 mg tablet 5 mg PO TID PRN #10 tab 01/05/21 cyclobenzaprine 5 mg tablet 5 mg PO TID PRN #10 tab 01/05/21 oxycodone 5 mg tablet 5 mg PO Q6H PRN #10 tab 01/05/21 oxycodone 5 mg tablet 5 mg PO Q6H PRN #7 tab 01/05/21 diazepam 5 mg tablet (Valium) 5 mg PO TID PRN #9 tab 02/20/21 ondansetron 4 mg disintegrating 4 mg PO Q8H PRN #14 tab 02/21/21 tablet acetaminophen 500 mg tablet 500 mg PO Q6H PRN #20 tab 04/30/21 (Tylenol Extra Strength) cyclobenzaprine 5 mg tablet 5 mg PO Q8H PRN 5 Days #14 tab 04/30/21 lidocaine 5 % topical patch 1 patch TOPICAL DAILY PRN #30 ea 04/30/21 (Lidoderm) MDD remove after 12 hours pantoprazole 40 mg tablet,delayed 40 mg PO DAILY #60 tab 05/09/21 release acetaminophen 500 mg tablet 1,000 mg PO QID PRN #30 tab 08/31/21 oxycodone 5 mg tablet 5 mg PO Q6H PRN #7 tab 08/31/21 Allergies Allergy/AdvReac Type Severity Reaction Status Date / Time meloxicam Allergy Mild kidney Verified 06/09/21 10:49 failure amitriptyline Allergy Unknown Verified 06/09/21 10:49 gabapentin Allergy Difficulty Verified 06/09/21 10:49 Breathing Iodinated Contrast Media Allergy Anaphylaxis Verified 06/09/21 10:49 sulfamethoxazole Allergy Itching Verified 06/09/21 10:49 [From Bactrim] trimethoprim [From Bactrim] Allergy Itching Verified 06/09/21 10:49 Review of Systems Review of Systems: positive for continuous chest pain Negatives are no fever no chills no dizziness or weakness no fainting no feeling faint no shortness of breath no difficulty breathing or swallowing no abdominal pain no nausea or vomiting no diaphoresis no dysuria no joint pains no skin rash Yes all other systems are reviewed and are negative [facility] Past Medical History Source: nursing notes reviewed Medical History Adrenal mass Anemia Anxiety Asthma Carpal tunnel syndrome Depression Diabetes Fibromyalgia GERD (gastroesophageal reflux disease) Hypertension Migraine Sleep apnea Surgical History History of esophagogastroduodenoscopy (EGD) Hx of colonoscopy Social History Social History Alcohol intake: never Patient Tobacco Use Status: Never used Tobacco Advance Directives: No Advance Directives Information Provided: No Patient : No Physical Exam Vital Signs: Vital Signs: Last Vital Signs Temp 98.4 F 08/31/21 16:00 Pulse 90 08/31/21 14:38 Resp 18 08/31/21 14:38 BP 120/68 08/31/21 14:38 Pulse Ox 100 08/31/21 14:38 BMI result Body Mass Index 33.6 general appearance comfortable relax no acute distress Eyes anicteric no pallor The pharynx is clear no redness swelling or exudate well-hydrated Voice is normal Neck is supple Chest clear to auscultation with full symmetric equal breath sounds bilaterally Heart no murmur Abdomen soft nontender Extremities no edema no calf tenderness or swelling Neuro no focal motor sensory deficits Course Course Course Narrative: patient had EKG which was normal sinus rhythm with normal intervals normal QT, no acute ST elevations no acute ischemic changes Chest x-ray was normal with no evidence of pneumonia or pneumothorax Labs did not show any acute abnormalities One troponin was normal and patient has had ongoing pain for several days which is continuous D-dimer was negative Vitals were normal and patient was comfortable and patient is discharged with diagnosis chest wall pain MDM - URI/Sore Throat Lab Data Attestation: I reviewed the patient's lab results. Result diagrams: 08/31/21 16:09 08/31/21 17:08 Labs: Lab Results 08/31/21 08/31/21 08/31/21 Range/Units 16:09 16:09 16:09 WBC 9.6 (4.8-10.8) X10*3/uL RBC 4.85 (4.20-5.50) X10*6/uL Hgb 11.2 L (12.0-16.0) g/dl Hct 37.2 (37.0-47.0) % MCV 76.7 L (80.0-98.0) fL MCH 23.1 L (27.0-33.0) pg MCHC 30.1 L (31.0-35.0) g/dl RDW 18.6 H (11.0-16.0) % Plt Count 269 (160-400) X10*3/uL MPV 10.0 (9.4-12.3) fL Immature Gran % (Auto) 0.3 (0.0-0.4) % Neut % (Auto) 62.0 (45-73) % Lymph % (Auto) 27.9 (20-40) % [place] % (Auto) 7.0 (2-11) % Eos % (Auto) 2.4 (0-4) % Baso % (Auto) 0.4 (0-2) % Lymph # (Auto) 2.7 (1.2-4.9) X10*3/uL [place] # (Auto) 0.7 (0.1-1.2) X10*3/uL Eos # (Auto) 0.2 (0.0-0.4) X10*3/uL Baso # (Auto) 0.0 (0.0-0.2) X10*3/uL Abs Immat Gran (auto) 0.03 (0.00-0.03) X10*3/uL Absolute Neuts (auto) 5.9 (2.0-8.3) x10*3/uL Absolute Nucleated RBC 0.000 (0.0-0.012) X10*3/uL Nucleated RBC % (auto) 0.0 (0.0-0.2) /100WBC D-Dimer High Sensitivty < 150 NG/ML Sodium (135-145) mmol/L Potassium (3.3-5.1) mmol/L Chloride (96-108) mmol/L Carbon Dioxide (22-29) mmol/L Anion Gap (12-20) BUN (9-16) mg/dL Creatinine (0.5-1.4) mg/dL Estim Creat Clear Calc Estimated GFR Random Glucose (60-115) mg/dL Calcium (8.4-10.2) mg/dL Troponin I High Sens < 3.5 (<3.5-17.0) ng/L 08/31/21 Range/Units 17:08 WBC (4.8-10.8) X10*3/uL RBC (4.20-5.50) X10*6/uL Hgb (12.0-16.0) g/dl Hct (37.0-47.0) % MCV (80.0-98.0) fL MCH (27.0-33.0) pg MCHC (31.0-35.0) g/dl RDW (11.0-16.0) % Plt Count (160-400) X10*3/uL MPV (9.4-12.3) fL Immature Gran % (Auto) (0.0-0.4) % Neut % (Auto) (45-73) % Lymph % (Auto) (20-40) % [place] % (Auto) (2-11) % Eos % (Auto) (0-4) % Baso % (Auto) (0-2) % Lymph # (Auto) (1.2-4.9) X10*3/uL [place] # (Auto) (0.1-1.2) X10*3/uL Eos # (Auto) (0.0-0.4) X10*3/uL Baso # (Auto) (0.0-0.2) X10*3/uL Abs Immat Gran (auto) (0.00-0.03) X10*3/uL Absolute Neuts (auto) (2.0-8.3) x10*3/uL Absolute Nucleated RBC (0.0-0.012) X10*3/uL Nucleated RBC % (auto) (0.0-0.2) /100WBC D-Dimer High Sensitivty NG/ML Sodium 145 (135-145) mmol/L Potassium 4.0 (3.3-5.1) mmol/L Chloride 108 (96-108) mmol/L Carbon Dioxide 27 (22-29) mmol/L Anion Gap 14 (12-20) BUN 19 H (9-16) mg/dL Creatinine 0.94 (0.5-1.4) mg/dL Estim Creat Clear Calc 76.1 Estimated GFR > 60 Random Glucose 80 (60-115) mg/dL Calcium 9.3 (8.4-10.2) mg/dL Troponin I High Sens (<3.5-17.0) ng/L Discharge Plan Discharge Clinical Impression: COVID-19, Chest wall pain Patient Disposition: Home, Self-Care Additional Instructions: your workup today showed a normal EKG ,normal x-ray normal vital signs ,blood testing did not show any evidence of heart problem or blood clot, no pneumonia seen on the x-ray Neuro very well appearing and safe to go home so you are being discharged with pain medicine Follow with primary doctor and return to the ER any time any worse condition or any concerns Prescriptions: New acetaminophen 500 mg tablet 1,000 mg PO QID PRN (Reason: pain) Qty: 30 RF: 0 oxycodone 5 mg tablet 5 mg PO Q6H PRN (Reason: pain) Qty: 7 RF: 0 No Action pantoprazole 40 mg tablet,delayed release (DR/EC) 40 mg PO DAILY Qty: 60 RF: 2 hydrocortisone 1 % cream 1 appl topical TID PRN (Reason: skin irritation) Qty: 28.35 RF: 0 oxycodone 5 mg tablet 5 mg PO Q6H PRN (Reason: pain) Qty: 10 RF: 0 cyclobenzaprine 5 mg tablet 5 mg PO TID PRN (Reason: muscle spasm) Qty: 10 RF: 0 cyclobenzaprine 5 mg tablet 5 mg PO TID PRN (Reason: muscle spasm) Qty: 10 RF: 0 oxycodone 5 mg tablet 5 mg PO Q6H PRN (Reason: pain) Qty: 7 RF: 0 prednisone 20 mg tablet 40 mg PO DAILY 5 Days Qty: 10 RF: 0 benzonatate [Tessalon Perles] 100 mg capsule 100 mg PO TID PRN (Reason: cough) Qty: 14 RF: 0 diazepam [Valium] 5 mg tablet 5 mg PO TID PRN (Reason: muscle spasm) Qty: 9 RF: 0 acetaminophen [Tylenol Extra Strength] 500 mg tablet 500 mg PO Q6H PRN (Reason: pain or fever) Qty: 20 RF: 0 lidocaine [Lidoderm] 5 % adhesive patch,medicated 1 patch topical DAILY MDD remove after 12 hours PRN (Reason: pain) Qty: 30 RF: 0 cyclobenzaprine 5 mg tablet 5 mg PO Q8H PRN (Reason: pain (scale score 7-10)) 5 Days Qty: 14 RF: 0 Humalog KwikPen Insulin 200 unit/mL (3 mL) insulin pen 20 unit subcut QIDACHS RF: 0 Lantus U-100 Insulin 100 unit/mL solution 25 unit subcut BID RF: 0 Jardiance 10 mg tablet 10 mg PO DAILY RF: 0 sennosides-docusate sodium [Senexon-S] 8.6-50 mg tablet 1 tab-cap PO BEDTIME RF: 0 clonazepam 0.5 mg tablet 0.25 mg PO BEDTIME RF: 0 duloxetine 60 mg capsule,delayed release(DR/EC) 60 mg PO DAILY RF: 0 topiramate 200 mg cap,sprinkle,ER 24hr dose pack 200 mg PO DAILY RF: 0 lisinopril 10 mg tablet 10 mg PO DAILY RF: 0 ferrous sulfate 325 mg (65 mg iron) tablet 325 mg PO DAILY RF: 0 cyclobenzaprine 10 mg tablet 10 mg PO BEDTIME RF: 0 amlodipine 10 mg tablet 10 mg PO DAILY RF: 0 promethazine 25 mg tablet 25 mg PO TID PRNRF: 0 melatonin 10 mg capsule 10 mg PO BEDTIME PRNRF: 0 polyethylene glycol 3350 [Miralax] 17 gram/dose powder 238 g PO ONCE Qty: 238 RF: 0 Proair Digihaler 90 mcg/actuation aero powdr breath act w/sensor 1 inh inhalation Q4-6H PRNRF: 0 budesonide 32 mcg/actuation spray,non-aerosol 1 spray intranasal DAILY RF: 0 ondansetron 4 mg tablet,disintegrating 4 mg PO Q8H PRN (Reason: nausea and vomiting) Qty: 14 RF: 1 diclofenac sodium 75 mg tablet,delayed release (DR/EC) 75 mg PO BID RF: 0
--- NOTE | 2021-08-31 15:59 | ECG_ITS ---
Test Reason : sob Blood Pressure : / mmHG Vent. Rate : 088 BPM Atrial Rate : 088 BPM P-R Int : 132 ms QRS Dur : 088 ms QT Int : 362 ms P-R-T Axes : 057 016 022 degrees QTc Int : 438 ms Normal sinus rhythm Normal ECG When compared to the previous EKG of No significant changes seen Referred By: Ed Hernandez Electronically Signed By:Tomasz Napier
[2021-08-31 16:00] VITALS: TEMP 36.9
[2021-08-31 16:15] LABS: MANUAL DIFF FLAG NO
[2021-08-31 16:17] LABS: Basophils Percent Auto 0.4 % (0-2); Eosinophils Absolute Auto 0.2 X10*3/uL (0.0-0.4); Eosinophils Percent Auto 2.4 % (0-4); Hematocrit 37.2 % (37.0-47.0); Hemoglobin 11.2 g/dl (12.0-16.0); Imm Gran Abs Auto 0.03 X10*3/uL (0.00-0.03); Imm Gran Pct Auto 0.3 % (0.0-0.4); Lymphocytes Absolute Auto 2.7 X10*3/uL (1.2-4.9); Lymphocytes Percent Auto 27.9 % (20-40); Mean Corpuscular HGB Conc 30.1 g/dl (31.0-35.0); Mean Corpuscular Hemoglobin 23.1 pg (27.0-33.0); Mean Corpuscular Volume 76.7 fL (80.0-98.0); Monocytes Absolute Auto 0.7 X10*3/uL (0.1-1.2); Neutrophils Absolute Auto 5.9 x10*3/uL (2.0-8.3); Platelet Count 269 X10*3/uL (160-400); Red Blood Count 4.85 X10*6/uL (4.20-5.50); Red Cell Distribution Width 18.6 % (11.0-16.0); White Blood Count 9.6 X10*3/uL (4.8-10.8)
[2021-08-31 16:29] LABS: D Dimer High Sensitivity < 150 NG/ML
[2021-08-31 16:35] LABS: Troponin-I High Sensitivity < 3.5 ng/L (<3.5-17.0)
[2021-08-31 17:32] LABS: Anion Gap 14 (12-20); Blood Urea Nitrogen 19 mg/dL (9-16); Calcium 9.3 mg/dL (8.4-10.2); Carbon Dioxide 27 mmol/L (22-29); Chloride 108 mmol/L (96-108); Creatinine Clr Calc Pharmacy 76.1; Estimated Glomerular Filt Rate > 60; Glucose Random 80 mg/dL (60-115); Sodium 145 mmol/L (135-145)
== END 2021-08-31 18:30 | disposition home or self-care (01) ==
PROVIDERS: Physician Assistant Medical; Emergency Provider Internal Medicine
DX: U07.1 COVID-19 (principal); R07.89 Other chest pain; E11.9 Type 2 diabetes mellitus without complications; I10 Essential (primary) hypertension; Z79.4 Long term (current) use of insulin; Z79.899 Other long term (current) drug therapy
CPT/HCPCS: 36415; 71045; 80048; 84484; 85025; 85379; 93005; 99283; 99284

== ENCOUNTER → 2021-11-13 08:11 | Outpatient (BNVA) | payer OTHER, SELFPAY | PROVIDERS: Visit Provider Internal Medicine Gastroenterology ==

== ENCOUNTER → 2022-03-06 07:39 | Outpatient (REF) | payer OTHER, SELFPAY ==
--- NOTE | ~2022-03-06 | NM_ITS ---
EXAMINATION: MD RADIONUCLIDE SOLID FOOD GASTRIC EMPTYING 4-HOUR STUDY CLINICAL INFORMATION: 47-year-old female presented with early satiety, nausea, bloating. Diabetic. COMPARISON: None TECHNIQUE: A standard meal consisting of 4 oz of Egg Beaters brand tagged with 1.0 mCi of Tc-99m Sulfur Colloid, 8 oz water and 2 slices of toast with jelly was administered orally to the patient. Images were obtained using a dual head gamma camera in the anterior and posterior projections over of the stomach immediately post ingestion and at hourly intervals up to 4 hours post ingestion. The anterior and posterior counts at each time interval were averaged using the geometric mean and expressed as percentage of the immediate post ingestion counts. FINDINGS: There is good visualization of activity in the stomach immediately post ingestion. As the study progresses, there is good clearance of activity from the stomach and visualization of progressively increasing small bowel activity. By the end of the study, there is almost no retention noted in the stomach. Retention in the stomach at each time interval was: 1 hour 73% (normal 37%-90%) 2 hours 56% (normal 30%-60%) 3 hours 45% 4 hours 19% (normal 0%-10%) MD/MD gastric emptying study IMPRESSION: Although gastric retention at 4 hours is slightly above the expected normal range however, the remainder of the gastric emptying appears to be within normal limit.
== END ==
LOC: HO.NUCMED 07:39
PROVIDERS: PCP Internal Medicine; Visit Provider Internal Medicine Gastroenterology
DX: R68.81 Early satiety (principal)
CPT/HCPCS: 78264; A9541

== ENCOUNTER 2022-07-10 10:44 | Outpatient (REF) | payer OTHER, SELFPAY ==
[2022-07-10 12:03] LABS: COVID-19 Test Positive (Negative); IDNOW Serial# 16C4AD1C
== END 2022-07-10 10:45 | disposition home or self-care (01) ==
LOC: HO.LAB 10:44
PROVIDERS: Visit Provider Internal Medicine
DX: Z20.822 Contact with and (suspected) exposure to COVID-19 (principal)
CPT/HCPCS: 87635; C9803

== ENCOUNTER 2023-10-11 10:16 | Outpatient (REF) | payer OTHER, SELFPAY ==
[2023-10-11 11:38] LABS: MANUAL DIFF FLAG NO
[2023-10-11 11:55] LABS: Basophils Absolute Auto 0.1 X10*3/uL (0.0-0.2); Basophils Percent Auto 0.7 % (0-2); Eosinophils Absolute Auto 0.1 X10*3/uL (0.0-0.4); Eosinophils Percent Auto 1.7 % (0-4); Hematocrit 37.7 % (37.0-47.0); Hemoglobin 11.5 g/dl (12.0-16.0); Imm Gran Abs Auto 0.03 X10*3/uL (0.00-0.03); Imm Gran Pct Auto 0.4 % (0.0-0.4); Lymphocytes Percent Auto 24.4 % (20-40); Mean Corpuscular HGB Conc 30.5 g/dl (31.0-35.0); Mean Corpuscular Hemoglobin 23.7 pg (27.0-33.0); Mean Corpuscular Volume 77.6 fL (80.0-98.0); Mean Platelet Volume 10.3 fL (9.4-12.3); Monocytes Absolute Auto 0.6 X10*3/uL (0.1-1.2); Neutrophils Absolute Auto 5.5 x10*3/uL (2.0-8.3); Neutrophils Percent Auto 65.8 % (45-73); Platelet Count 332 X10*3/uL (160-400); Red Blood Count 4.86 X10*6/uL (4.20-5.50); Red Cell Distribution Width 20.3 % (11.0-16.0); White Blood Count 8.3 X10*3/uL (4.8-10.8)
[2023-10-11 12:35] LABS: Alanine Aminotransferase 15 U/L (0-31); Albumin Level 3.9 g/dL (3.5-5.0); Alkaline Phosphatase 92 U/L (39-117); Anion Gap 12 (12-20); Aspartate Amino Transferase 12 U/L (5-31); Bilirubin Total 0.4 mg/dL (0.0-1.0); Blood Urea Nitrogen 13 mg/dL (9-16); C Reactive Protein 0.29 mg/dL (< or = 0.50); Calcium 9.6 mg/dL (8.4-10.2); Carbon Dioxide 28 mmol/L (22-29); Chloride 106 mmol/L (96-108); Estimated Glomerular Filt Rate > 60; Glucose Random 233 mg/dL (60-115); Potassium 3.9 mmol/L (3.3-5.1); Sodium 142 mmol/L (135-145); Total Protein 7.5 g/dL (6.5-8.0)
[2023-10-11 13:10] LABS: Folate 14.7 ng/mL (> or = 4.0); Vitamin B12 564 pg/mL (200-900)
[2023-10-12 10:38] LABS: Adenovirus F 40/41 Not Detected (Not Detect.); Astrovirus Not Detected (Not Detect.); Campylobacter Not Detected (Not Detect.); Cryptosporidium Not Detected (Not Detect.); Cyclospora cayetanensis Not Detected (Not Detect.); E. coli EAEC Not Detected (Not Detect.); E. coli EPEC Not Detected (Not Detect.); E. coli ETEC Not Detected (Not Detect.); E. coli STEC Not Detected (Not Detect.); Entamoeba histolytica Not Detected (Not Detect.); Giardia lamblia Not Detected (Not Detect.); Norovirus GI/GII Not Detected (Not Detect.); Plesiomonas shigelloides Not Detected (Not Detect.); Rotavirus A Not Detected (Not Detect.); Salmonella Not Detected (Not Detect.); Sapovirus Not Detected (Not Detect.); Shigella sp./EIEC Not Detected (Not Detect.); Vibrio Not Detected (Not Detect.); Vibrio Cholerae Not Detected (Not Detect.); Yersinia enterocolitica Not Detected (Not Detect.)
== END 2023-10-11 10:17 | disposition home or self-care (01) ==
LOC: HO.LAB 10:16
PROVIDERS: PCP Internal Medicine; Visit Provider Internal Medicine Gastroenterology
DX: K75.81 Nonalcoholic steatohepatitis (NASH) (principal); K51.50 Left sided colitis without complications; K21.9 Gastro-esophageal reflux disease without esophagitis; K52.9 Noninfective gastroenteritis and colitis, unspecified; I10 Essential (primary) hypertension; R10.33 Periumbilical pain
CPT/HCPCS: 36415; 80053; 82607; 82746; 83631; 85025; 86140; 87493; 87507; 99212

== ENCOUNTER 2023-10-11 10:16 | Outpatient (AMB) | payer OTHER, SELFPAY ==
--- NOTE | 2023-10-11 10:22 | MHC.OFFVIS ---
Intake Vital Signs 10/11/23 10:28 Height 5 ft 3 in Weight 196 lb 3.382 oz BMI 34.8 BP 141/65 H Blood Pressure Location Lt brachial Position Sitting Pulse 91 Intake Visit Reasons: F/U GERD Intake Note: Makenna presents in the office as a follow up for her GERD. CC: She states that she has pains in her stomach and nausea. She was admitted in the ED for 2 weeks. When she got out everything was the same. 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: No Allergies meloxicam Allergy (Mild, Verified 10/11/23 10:28) kidney failure amitriptyline Allergy (Verified 10/11/23 10:28) Unknown gabapentin Allergy (Verified 10/11/23 10:28) Difficulty Breathing Iodinated Contrast Media Allergy (Verified 10/11/23 10:28) Anaphylaxis sulfamethoxazole [From Bactrim] Allergy (Verified 10/11/23 10:28) Itching trimethoprim [From Bactrim] Allergy (Verified 10/11/23 10:28) Itching HPI F/U GERD HPI Details 48 yr old f with hx of asthma, HTN, migraines, GERARDO, DM, seen for f/u staff interpreter used RECAP: original complaints: she had 2 months of nausea and vomiting, non bloody epigastric pain, can be 8-10/10 in severity food doesn't affect it she has omeprazole (given by ER --ran out now) occ takes famotidine kel she had EGD many years ago--had ABX treatment in past No FH of colon cancer or stomach issues Labs with borderline anemia, low MCV she had EGd/colonoscopy due to above -- 01/2021---colon nml, EGD reduced gastric movt, mild esophagitis BX: active esophagitis, villous blunting of duodenum, TI/colon nml celiac panel and Ig levels were nml I called her 02/2021-- she had what sounded like gastroenteritis and was recovering GES: pos 19% 2021 INTERIM: she was in the hospital for 2 weeks for colitis--[facility] she has nausea, taking zofran, pantoprazole she got Abx but unsure if helped she denies diarrhea no blood in stools CT [facility] remote access-- long segment colitis transverse and descending EXAM: GENERAL: The patient is well developed and nontoxic. VITAL SIGNS:see workflow HEENT: Nonicteric sclerae, PERRLA, EOMI. Oropharynx clear. Moist mucous membranes. Conjunctivae appear well perfused. No thyroid mass. CHEST: Chest wall is nontender. HEART: Regular rate and rhythm without murmurs. LUNGS: Clear to auscultation bilaterally. ABDOMEN: Soft, positive bowel sounds, tender epigastrium, no organomegaly.no flank tenderness SKIN: No rash, no excessive bruising, petechiae, or purpura. NEUROLOGIC: Cranial nerves II-XII intact without motor/sensory deficit. Psych: normal affect A/P: 1/ recent colitis 2/ gastroparesis prob from DM PLAN: 1/check labs again, had anemia at [facility] 2/ stool c diff and Gi panel 3/ CTe 4/ EGD and colo may have crohsn, ddx: ischemic colitis, infectious --send suprep --1/2 insulin dose day before and stop jardiance 3 d before [facility] Medical History GERD (gastroesophageal reflux disease) Fibromyalgia Anxiety Carpal tunnel syndrome Anemia Adrenal mass Asthma Migraine Sleep apnea Depression Hypertension Diabetes Surgical History Hx of colonoscopy History of esophagogastroduodenoscopy (EGD) Social History Alcohol intake: never Patient Tobacco Use Status: Never used Tobacco Physical Exam Vital Signs: Last Vital Signs Pulse 91 10/11/23 10:28 BP 141/65 H 10/11/23 10:28 BMI result Body Mass Index 34.8 Assessment & Plan Assessment & Plan (1) Colitis: Code(s): K52.9 - Noninfective gastroenteritis and colitis, unspecified Plan: see above Orders: Orders CT enterography Today K52.9 - Noninfective gastroenteritis and colitis, unspecified, R10.33 - Periumbilical pain CDiff Gene PCR Today K52.9 - Noninfective gastroenteritis and colitis, unspecified Lactoferrin, Fecal, Quant. Today K51.50 - Left sided colitis without complications, K52.9 - Noninfective gastroenteritis and colitis, unspecified C Reactive Protein Today K52.9 - Noninfective gastroenteritis and colitis, unspecified Complete Blood Count Auto Diff Today K52.9 - Noninfective gastroenteritis and colitis, unspecified Comprehensive Met. Panel Today K52.9 - Noninfective gastroenteritis and colitis, unspecified, K75.81 - Nonalcoholic steatohepatitis (AJQUEZ) Vitamin B12 and Folate Today K52.9 - Noninfective gastroenteritis and colitis, unspecified GI Panel Today K52.9 - Noninfective gastroenteritis and colitis, unspecified, R19.7 - Diarrhea, unspecified Medications: New sodium,potassium,mag sulfates 17.5-3.13-1.6 gram (Suprep Bowel Prep Kit) DILUTE; drink 1/2 at 6-8 pm and half at 11 PM- 1AM 354 mL 0RF Coding Level of Care Code Est Pt Level 4 (96116) Diagnoses Colitis K52.9
[2023-10-11 10:28] VITALS: BP 141/65; PULSE 91; BMI 34.8
== END 2023-10-11 11:04 | disposition home or self-care (01) ==
PROVIDERS: PCP Internal Medicine; Visit Provider Internal Medicine Gastroenterology
DX: K52.9 Noninfective gastroenteritis and colitis, unspecified (principal)
CPT/HCPCS: 99214

== ENCOUNTER 2023-11-07 14:13 | Emergency (ER) | payer OTHER, SELFPAY ==
--- NOTE | ~2023-11-07 | US_ITS ---
EXAMINATION: US PELVIS CLINICAL INFORMATION: Vaginal bleeding, LMP 10/12/2023. COMPARISON: None available. TECHNIQUE: Ultrasound of the pelvis is performed using both transabdominal and transvaginal transducers along with Doppler. Transvaginal imaging is performed due to inadequate visualization transabdominally. FINDINGS: Limited evaluation secondary to shadowing from overlying bowel gas. Anteverted anteflexed uterus measuring 9.3 x 4 x 4.9 cm. No uterine mass. A few subcentimeter simple appearing nabothian cysts are noted in the cervix. The endometrium measures 0.4 cm in thickness without discrete focal abnormality. Limited evaluation of the ovaries which are grossly symmetric in size with preserved color flow at the moment of this examination. Right ovary measures approximately 1.9 x 1.1 x 1 cm, 1.5 mL and the left ovary measures approximately 1.7 x 1.4 x 1.2 cm, 1.5 mL. No free fluid. US/US pelvic and transvaginal IMPRESSION: 1. Limited examination secondary to shadowing from overlying bowel gas. 2. No definite acute sonographic abnormalities. If symptoms persist, correlation with a pelvic MRI could be obtained. 3. Limited evaluation of the ovaries which are grossly symmetric in size and demonstrate preserved color flow at the moment of this examination.
--- NOTE | ~2023-11-07 | CT_ITS ---
EXAMINATION: CT ABDOMEN AND PELVIS WITHOUT CONTRAST CLINICAL INFORMATION: Lower abdominal pain and tenderness COMPARISON: None available. TECHNIQUE: Multidetector volumetric imaging was performed from the superior aspect of the liver through the pubic symphysis. Sagittal and coronal reformatted images were obtained on the technologist's workstation. This CT examination was performed using dose optimization techniques as appropriate, variously including the following: *Automated exposure control *Adjustment of mA and/or kV according to patient size (this includes techniques or standardized protocols for targeted exams where dose is matched to indication/reason for exam; i.e. extremities or head) *Use of iterative reconstruction technique DLP: 606 mGy-cm FINDINGS: LUNG BASES: The visualized lung bases are unremarkable. LIVER, GALLBLADDER, AND BILIARY TREE: The liver is normal in size, shape, and attenuation. No focal hepatic lesion or biliary ductal dilatation is identified on this noncontrast exam. The gallbladder is unremarkable with no evidence of radiopaque gallstones, gallbladder wall thickening, or obvious pericholecystic inflammatory changes. PANCREAS: Unremarkable. SPLEEN: Unremarkable. ADRENAL GLANDS: There is a predominately fat density left adrenal mass measuring up to approximately 4.2 cm, most consistent with a myelolipoma; no follow-up recommended. KIDNEYS AND URETERS: No hydronephrosis or obstructing calculus identified. BLADDER: Minimally distended and not well evaluated. GASTROINTESTINAL TRACT: No evidence of bowel obstruction or significant wall thickening. The appendix is unremarkable. No free fluid or free air is seen. ABDOMINAL WALL: No significant hernia is appreciated. LYMPH NODES: Normal. VASCULAR: Mild scattered atherosclerotic calcifications. PELVIC VISCERA: Bilateral Essure device noted. OSSEOUS STRUCTURES: Scattered endplate osteophytes in the spine. CT/CT abdomen pelvis wo IV con IMPRESSION: No acute findings identified in the abdomen/pelvis.
[2023-11-07 14:19] VITALS: BP 129/61; PULSE 94; RESP 16; TEMP 36.6; O2SAT 97; BMI 35.3
--- NOTE | 2023-11-07 14:24 | ED_ITS ---
HPI - Female Genitourinary General Chief complaint: Vaginal Bleeding Stated complaint: Vag bleeding, abd pain Time Seen by Provider: 11/07/23 22:16 History of Present Illness HPI Narrative: The patient is a 48-year-old woman who says that she has been having problems with vaginal bleeding for several weeks. She says that few weeks ago she saw her OBGYN, Dr. Mcgraw, and she says she was prescribed progesterone. Has been taking this for the last few weeks but has continued to have mild ongoing vaginal bleeding and spotting. Over the last 24 hours she has developed some suprapubic discomfort as well and came to the emergency room for evaluation. She indicates that the discomfort is primarily in the mid lower abdomen and does not really lateralized. She does not have any urinary symptoms such as dysuria, urgency, or not think that she had a UTI. No fever or chills. Related Data Home Medications Medication Instructions Recorded Confirmed amlodipine 10 mg tablet 10 mg PO DAILY 12/20/20 cyclobenzaprine 10 mg tablet 10 mg PO BEDTIME 12/20/20 duloxetine 60 mg capsule,delayed 60 mg PO DAILY 12/20/20 release ferrous sulfate 325 mg (65 mg 325 mg PO DAILY 12/20/20 iron) tablet insulin glargine 100 unit/mL 25 unit subcut BID 12/20/20 subcutaneous solution (Lantus U-100 Insulin) insulin lispro 200 unit/mL (3 mL) 20 unit subcut QIDACHS 12/20/20 subcutaneous pen (Humalog KwikPen U-200 Insulin) melatonin 10 mg capsule 10 mg PO BEDTIME PRN 12/20/20 sennosides 8.6 mg-docusate sodium 1 tab-cap PO BEDTIME 12/20/20 50 mg tablet (Senexon-S) albuterol sulfate 90 mcg/actuation 1 inh inhalation Q4-6H PRN 02/21/21 breath activated powder inhaler,sensor (Proair Digihaler) diclofenac sodium 75 mg 75 mg PO BID 06/09/21 tablet,delayed release clonazepam 1 mg tablet 1 mg PO BID 11/13/21 fluticasone propionate 50 1 spray intranasal DAILY 11/13/21 mcg/actuation nasal spray,suspension (Flonase Allergy Relief) insulin lispro 100 unit/mL 25 unit subcut TID 04/04/22 subcutaneous pen (Humalog KwikPen (U-100) Insulin) lisinopril 10 mg tablet 10 mg PO DAILY 11/13/21 norethindrone (contraceptive) 0.35 0.35 mg PO DAILY 11/13/21 mg tablet riboflavin (vitamin B2) 100 mg 200 mg PO BID 11/13/21 tablet (Vitamin B-2) sumatriptan succinate 25 mg tablet See Rx Instructions PO .COMPLEX 11/13/21 empagliflozin 25 mg tablet 25 mg PO QAM 10/11/23 (Jardiance) Previous Rx's Medication Instructions Recorded hydrocortisone 1 % topical cream 1 appl topical TID PRN skin 12/22/20 irritation #28.35 grams diazepam 5 mg tablet (Valium) 5 mg PO TID PRN muscle spasm #9 02/20/21 tabs lidocaine 5 % topical patch 1 patch topical DAILY PRN pain #30 04/30/21 (Lidoderm) ea acetaminophen 500 mg tablet 1,000 mg (2 x 500 mg) PO QID PRN 08/31/21 pain #30 tabs ondansetron 4 mg disintegrating 4 mg PO Q8H PRN for 01/03/23 tablet nausea/vomiting #60 tabs sodium,potassium,mag sulfates 17.5 See Rx Instructions PO .COMPLEX 10/11/23 gram-3.13 gram-1.6 gram oral soln #354 mL (Suprep Bowel Prep Kit) pantoprazole 40 mg tablet,delayed 40 mg PO DAILY #90 tabs 10/30/23 release mesalamine 0.375 gram 1.5 g (4 x 0.375 gram) PO QAM #120 11/05/23 capsule,extended release 24 hr caps (Apriso) Allergies Allergy/AdvReac Type Severity Reaction Status Date / Time meloxicam Allergy Mild kidney Verified 11/07/23 14:19 failure amitriptyline Allergy Unknown Verified 11/07/23 14:19 gabapentin Allergy Difficulty Verified 11/07/23 14:19 Breathing Iodinated Contrast Media Allergy Anaphylaxis Verified 11/07/23 14:19 sulfamethoxazole Allergy Itching Verified 11/07/23 14:19 [From Bactrim] trimethoprim [From Bactrim] Allergy Itching Verified 11/07/23 14:19 Review of Systems 2 Review of Systems: Yes all other systems are reviewed and are negative PMFSH Past Medical History Medical History GERD (gastroesophageal reflux disease) Fibromyalgia Anxiety Carpal tunnel syndrome Anemia Adrenal mass Asthma Migraine Sleep apnea Depression Hypertension Diabetes Surgical History Hx of colonoscopy History of esophagogastroduodenoscopy (EGD) Social History Social History Alcohol intake: never Patient Tobacco Use Status: Never used Tobacco Smoked in Last 30 Days: No Use of substances other than those prescribed or required for medical reasons: No Advance Directives: No Advance Directives Information Provided: No Patient : No Physical Exam 2 Vital Signs: Vital Signs: Last Vital Signs Temp 98.0 F 11/08/23 01:33 Pulse 79 11/08/23 01:33 Resp 16 11/08/23 01:33 BP 116/69 11/08/23 01:33 Pulse Ox 98 11/08/23 01:33 O2 Del Method Room Air 11/08/23 01:33 BMI result Body Mass Index 35.3 Const: Other: The patient is a somewhat chronically ill-appearing 48-year-old woman who was awake and alert. She looks somewhat chronically ill but not obviously acutely ill. HEENT: Other: Face is symmetrical, mucous membranes moist Course Course Course Narrative: RME:?48 yo female here for eval of vaginal bleeding x2 days. going through approx 3 pads per day. Reports associated lower abdominal/pelvic cramping. Received a call from OBGYN yesterday who informed her that she has uterine polyps. Last menstrual period 1 month ago. labs, us ordered. Full HPI, ROS and PE to be performed by the primary ED provider. Medications Administered Discontinued Medications Generic Name Dose Route Start Last Admin Trade Name Freq PRN Reason Stop Dose Admin Acetaminophen 975 mg 11/07/23 23:20 11/08/23 00:15 Acetaminophen 325 Mg Tablet PO 11/07/23 23:21 975 mg ONCE ONE Administration Sodium Chloride 1,000 mls @ 999 mls/hr 11/07/23 23:30 11/08/23 00:00 Ns IV 11/08/23 00:30 999 mls/hr .Q1H1M SHANNAN Administration Medical Decision Making Medical Decision Making MDM Narrative: The patient is a 48-year-old woman who presents with a complaint of persistent vaginal bleeding despite taking norprogesterone for the last 3 weeks. Additionally she has had lower abdominal pain for the last 2 days. The patient's evaluation in the emergency room is largely unrevealing. An ultrasound of the pelvis has been ordered at triage which was unremarkable. Her hemoglobin is stable. She does not seem toxic. She was tender in the mid lower abdomen but she denies any urinary symptoms and her urinalysis is unremarkable. A CT scan of the abdomen and pelvis was done to evaluate her lower abdominal pain. This was done without IV contrast as she has a history of anaphylaxis to iodinated contrast media. The CT was unremarkable. The patient was given IV fluids because her blood sugar was a bit high. She requested pain medications and was given acetaminophen. She apparently does not do well on nonsteroidal anti-inflammatories. Ultimately the patient was discharged after hydration to follow up with her PCP and her director records management. Lab Data 11/07/23 17:18 11/07/23 17:18 Labs: Lab Results 11/07/23 11/07/23 11/07/23 Range/Units 17:18 18:19 22:48 WBC 12.1 H (4.8-10.8) X10*3/uL RBC 4.89 (4.20-5.50) X10*6/uL Hgb 11.4 L (12.0-16.0) g/dl Hct 37.1 (37.0-47.0) % MCV 75.9 L (80.0-98.0) fL MCH 23.3 L (27.0-33.0) pg MCHC 30.7 L (31.0-35.0) g/dl RDW 19.5 H (11.0-16.0) % Plt Count 291 (160-400) X10*3/uL MPV 10.0 (9.4-12.3) fL Immature Gran % (Auto) 0.3 (0.0-0.4) % Neut % (Auto) 70.3 (45-73) % Lymph % (Auto) 21.9 (20-40) % [place] % (Auto) 5.2 (2-11) % Eos % (Auto) 2.0 (0-4) % Baso % (Auto) 0.3 (0-2) % Lymph # (Auto) 2.7 (1.2-4.9) X10*3/uL [place] # (Auto) 0.6 (0.1-1.2) X10*3/uL Eos # (Auto) 0.2 (0.0-0.4) X10*3/uL Baso # (Auto) 0.0 (0.0-0.2) X10*3/uL Abs Immat Gran (auto) 0.04 H (0.00-0.03) X10*3/uL Absolute Neuts (auto) 8.5 H (2.0-8.3) x10*3/uL Absolute Nucleated RBC 0.000 (0.0-0.012) X10*3/uL Nucleated RBC % (auto) 0.0 (0.0-0.2) /100WBC PT 10.3 L (11.1-13.3) SEC INR 0.8 L (0.9-1.1) Sodium 140 (135-145) mmol/L Potassium 3.9 (3.3-5.1) mmol/L Chloride 105 (96-108) mmol/L Carbon Dioxide 25 (22-29) mmol/L Anion Gap 14 (12-20) BUN 12 (9-16) mg/dL Creatinine 0.93 (0.5-1.4) mg/dL Estim Creat Clear Calc 77.3 Estimated GFR > 60 POC Glucose 345 H (60-115) mg/dL Random Glucose 358 H* (60-115) mg/dL Calcium 9.3 (8.4-10.2) mg/dL Total Bilirubin 0.2 (0.0-1.0) mg/dL AST 16 (5-31) U/L ALT 19 (0-31) U/L Alkaline Phosphatase 136 H (39-117) U/L Total Protein 7.6 (6.5-8.0) g/dL Albumin 4.0 (3.5-5.0) g/dL Beta-Hydroxybutyrate 0.12 (0.02-0.27) mmol/L Beta HCG, Quant < 2 mIU/mL Urine Color Yellow Urine Appearance Clear Urine pH 5.5 (5.0-9.0) Ur Specific [place] >= 1.030 H (1.005-1.025) Urine Protein Negative (Neg-Trace) mg/dL Urine Glucose (UA) >=1000 H (Negative) mg/dL Urine Ketones Negative (Negative) mg/dL Urine Blood Moderate (2+) H (Negative) Urine Nitrite Negative (Negative) Ur Leukocyte Esterase Negative (Negative) Urine RBC 11-20 H (0-2) /HPF Urine WBC 0-5 (0-5) /HPF Ur Squamous Epith Cells 0-2 (0-2) /HPF Urine Bacteria None Seen (None Seen) Hyaline Casts 0-2 (0-2) /LPF Discharge Plan Discharge Clinical Impression: Vaginal bleeding, Lower abdominal pain Patient Disposition: Home, Self-Care Additional Instructions: Your testing today does not reveal any dangerous process. Please continue your regular medications. Use acetaminophen as needed for pain. Please keep your scheduled appointment with your director records management next week. Also plan on following up with your regular doctor regarding your diabetes. Return to the emergency room if worse. Prescriptions: No Action ondansetron 4 mg tablet,disintegrating 4 mg PO Q8H PRN (Reason: for nausea/vomiting) Qty: 60 1RF pantoprazole 40 mg tablet,delayed release (DR/EC) 40 mg PO DAILY Qty: 90 1RF mesalamine [Apriso] 0.375 gram capsule,extended release 24hr 1.5 g PO QAM Qty: 120 0RF hydrocortisone 1 % cream 1 appl topical TID PRN (Reason: skin irritation) Qty: 28.35 0RF diazepam [Valium] 5 mg tablet 5 mg PO TID PRN (Reason: muscle spasm) Qty: 9 0RF lidocaine [Lidoderm] 5 % adhesive patch,medicated 1 patch topical DAILY MDD remove after 12 hours PRN (Reason: pain) Qty: 30 0RF Rx Instructions: leave on most painful area for up to 12 hrs acetaminophen 500 mg tablet 1,000 mg PO QID PRN (Reason: pain) Qty: 30 0RF Humalog KwikPen Insulin 200 unit/mL (3 mL) insulin pen 20 unit subcut QIDACHS Lantus U-100 Insulin 100 unit/mL solution 25 unit subcut BID sennosides-docusate sodium [Senexon-S] 8.6-50 mg tablet 1 tab-cap PO BEDTIME duloxetine 60 mg capsule,delayed release(DR/EC) 60 mg PO DAILY ferrous sulfate 325 mg (65 mg iron) tablet 325 mg PO DAILY cyclobenzaprine 10 mg tablet 10 mg PO BEDTIME amlodipine 10 mg tablet 10 mg PO DAILY melatonin 10 mg capsule 10 mg PO BEDTIME PRN lisinopril 10 mg tablet 10 mg PO DAILY Proair Digihaler 90 mcg/actuation aero powdr breath act w/sensor 1 inh inhalation Q4-6H PRN diclofenac sodium 75 mg tablet,delayed release (DR/EC) 75 mg PO BID fluticasone propionate [Flonase Allergy Relief] 50 mcg/actuation spray,suspension 1 spray intranasal DAILY Rx Instructions: administer into each nostril clonazepam 1 mg tablet 1 mg PO BID insulin lispro [Humalog KwikPen Insulin] 100 unit/mL insulin pen 25 unit subcut TID riboflavin (vitamin B2) [Vitamin B-2] 100 mg tablet 200 mg PO BID sumatriptan succinate 25 mg tablet See Rx Instructions PO .COMPLEX Rx Instructions: take 1 tab at onset of headache; if no relief may repeat 1 tab after at least 2 hrs; max = 4 tabs/24 hr PO norethindrone (contraceptive) 0.35 mg tablet 0.35 mg PO DAILY Jardiance 25 mg tablet 25 mg PO QAM sodium,potassium,mag sulfates [Suprep Bowel Prep Kit] 17.5-3.13-1.6 gram recon soln See Rx Instructions PO .COMPLEX Qty: 354 0RF Rx Instructions: DILUTE; drink 1/2 at 6-8 pm and half at 11 PM- 1AM Interventions: ED Discharge Assessment Last Done: 11/08/23 01:33 Discharge Date/Time: 11/08/23 01:34
[2023-11-07 17:23] LABS: MANUAL DIFF FLAG NO
[2023-11-07 17:25] LABS: Basophils Percent Auto 0.3 % (0-2); Eosinophils Absolute Auto 0.2 X10*3/uL (0.0-0.4); Hematocrit 37.1 % (37.0-47.0); Hemoglobin 11.4 g/dl (12.0-16.0); Imm Gran Abs Auto 0.04 X10*3/uL (0.00-0.03); Imm Gran Pct Auto 0.3 % (0.0-0.4); Lymphocytes Absolute Auto 2.7 X10*3/uL (1.2-4.9); Lymphocytes Percent Auto 21.9 % (20-40); Mean Corpuscular HGB Conc 30.7 g/dl (31.0-35.0); Mean Corpuscular Hemoglobin 23.3 pg (27.0-33.0); Mean Corpuscular Volume 75.9 fL (80.0-98.0); Monocytes Absolute Auto 0.6 X10*3/uL (0.1-1.2); Monocytes Percent Auto 5.2 % (2-11); Neutrophils Absolute Auto 8.5 x10*3/uL (2.0-8.3); Neutrophils Percent Auto 70.3 % (45-73); Platelet Count 291 X10*3/uL (160-400); Red Blood Count 4.89 X10*6/uL (4.20-5.50); Red Cell Distribution Width 19.5 % (11.0-16.0); White Blood Count 12.1 X10*3/uL (4.8-10.8)
[2023-11-07 17:50] LABS: INTERNATIONAL NORM RATIO 0.8 (0.9-1.1); Prothrombin Time 10.3 SEC (11.1-13.3)
[2023-11-07 18:13] LABS: Alanine Aminotransferase 19 U/L (0-31); Alkaline Phosphatase 136 U/L (39-117); Anion Gap 14 (12-20); Aspartate Amino Transferase 16 U/L (5-31); Bilirubin Total 0.2 mg/dL (0.0-1.0); Blood Urea Nitrogen 12 mg/dL (9-16); Calcium 9.3 mg/dL (8.4-10.2); Carbon Dioxide 25 mmol/L (22-29); Chloride 105 mmol/L (96-108); Creatinine Clr Calc Pharmacy 77.3; Estimated Glomerular Filt Rate > 60; Potassium 3.9 mmol/L (3.3-5.1); Sodium 140 mmol/L (135-145); Total Protein 7.6 g/dL (6.5-8.0)
[2023-11-07 18:14] LABS: Glucose Random 358 mg/dL (60-115)
[2023-11-07 18:17] VITALS: BP 115/57; PULSE 83; RESP 16; TEMP 37; O2SAT 100
[2023-11-07 18:23] LABS: Glucose, Whole Blood 345 mg/dL (60-115)
[2023-11-07 19:15] LABS: Beta-Hydroxybutyrate 0.12 mmol/L (0.02-0.27)
[2023-11-07 22:50] LABS: HCG Quantitative < 2 mIU/mL
[2023-11-07 22:55] LABS: Appearance Urine Clear; Color Urine Yellow; Glucose Urine UA >=1000 mg/dL (Negative); Leukocyte Esterase Urine Negative (Negative); Nitrite Urine Negative (Negative); PH 5.5 (5.0-9.0); Specific Gravity - Urine >= 1.030 (1.005-1.025); UMIC TRIGGER UACC YES; Urine Blood Moderate (2+) (Negative); Urine Ketones Negative (Negative); Urine Protein Negative (Neg-Trace)
[2023-11-07 22:57] LABS: Bacteria Urine None Seen (None Seen); Hyaline Casts Urine 0-2 /LPF (0-2); Squamous Epithelial Cell Urine 0-2 /HPF (0-2); WBC Urine 0-5 /HPF (0-5)
[2023-11-08] MEDS: 0.9 % Sodium Chloride 1,000 ML 999 ML IV
[2023-11-08 00:03] VITALS: BP 127/69; PULSE 78; RESP 16; TEMP 37.1; O2SAT 98
[2023-11-08] MEDS: Acetaminophen 325 MG TABLET 975 MG PO (00:15)
[2023-11-08 01:33] VITALS: BP 116/69; PULSE 79; RESP 16; TEMP 36.7; O2SAT 98
== END 2023-11-08 01:34 | disposition home or self-care (01) ==
PROVIDERS: Physician Assistant Medical; Emergency Provider Emergency Medicine
DX: N93.9 Abnormal uterine and vaginal bleeding, unspecified (principal); R10.30 Lower abdominal pain, unspecified; I10 Essential (primary) hypertension; E11.9 Type 2 diabetes mellitus without complications; J45.909 Unspecified asthma, uncomplicated
CPT/HCPCS: 36415; 74176; 76830; 76856; 80053; 81001; 82010; 82947; 84702; 85025; 85610; 99283; 99285

== ENCOUNTER 2024-04-30 09:03 | Day surgery (SDC) | payer OTHER, SELFPAY ==
[2024-04-28 12:38] VITALS: BMI 34.7
--- NOTE | 2024-04-29 10:36 | P.CONAN_ITS ---
Documented by User: Anna Garcia NP 04/29/24 10:37 HPI - Anesthesia Eval Consult details Narrative: 49yo F for Upper Endoscopy and Colonoscopy Anesthesia Pre-Procedure Meds Is the patient on any of the following meds?: SGLT2 Inhib PMFSH Active Problems Active Problems: All Active Problems Colitis (Acute) COVID-19 (Acute) Constipation by delayed colonic transit (Acute) Duodenitis (Acute) Past Medical History Medical History (Updated 04/28/24 @ 12:38 by Stephenie Gustafson RN) Arthritis GERD (gastroesophageal reflux disease) Fibromyalgia Anxiety Carpal tunnel syndrome Anemia Adrenal mass Asthma Migraine Sleep apnea Depression Hypertension Diabetes Surgical History Surgical History Hx of colonoscopy History of esophagogastroduodenoscopy (EGD) Social History Social History Alcohol intake: never Patient Tobacco Use Status: Never used Tobacco Advance Directives: No Advance Directives Information Provided: Yes Meds Allergies Allergy/AdvReac Type Severity Reaction Status Date / Time meloxicam Allergy Mild kidney Verified 11/07/23 14:19 failure amitriptyline Allergy Unknown Verified 11/07/23 14:19 gabapentin Allergy Difficulty Verified 11/07/23 14:19 Breathing Iodinated Contrast Media Allergy Anaphylaxis Verified 11/07/23 14:19 sulfamethoxazole Allergy Itching Verified 11/07/23 14:19 [From Bactrim] trimethoprim [From Bactrim] Allergy Itching Verified 11/07/23 14:19 Home Medications ?Medication ?Instructions ?Recorded ?Confirmed ?Last Taken ?Type amlodipine 10 mg tablet 10 mg PO DAILY 12/20/20 04/28/24 Unknown History cyclobenzaprine 10 mg tablet 10 mg PO BEDTIME 12/20/20 04/28/24 Unknown History duloxetine 60 mg capsule,delayed 60 mg PO DAILY 12/20/20 04/28/24 Unknown History release ferrous sulfate 325 mg (65 mg 325 mg PO DAILY 12/20/20 04/28/24 Unknown History iron) tablet insulin lispro 200 unit/mL (3 mL) 20 unit subcut QIDACHS 12/20/20 04/28/24 01/31/21 16:00 History subcutaneous pen (Humalog KwikPen U-200 Insulin) melatonin 10 mg capsule 10 mg PO BEDTIME PRN Insomnia 12/20/20 04/28/24 Unknown History sennosides 8.6 mg-docusate sodium 1 tab-cap PO BEDTIME 12/20/20 04/28/24 Unknown History 50 mg tablet (Senexon-S) albuterol sulfate 90 mcg/actuation 1 inh inhalation Q4-6H PRN 02/21/21 04/28/24 Unknown History breath activated powder Shortness Of Breath inhaler,sensor (Proair Digihaler) diclofenac sodium 75 mg 75 mg PO BID 06/09/21 04/28/24 Unknown History tablet,delayed release clonazepam 1 mg tablet 1 mg PO BID 11/13/21 04/28/24 Unknown History fluticasone propionate 50 1 spray intranasal DAILY 11/13/21 04/28/24 Unknown History mcg/actuation nasal spray,suspension (Flonase Allergy Relief) lisinopril 10 mg tablet 10 mg PO DAILY 11/13/21 04/28/24 02/01/21 07:00 History norethindrone (contraceptive) 0.35 0.35 mg PO DAILY 11/13/21 Unknown History mg tablet riboflavin (vitamin B2) 100 mg 200 mg PO BID 11/13/21 04/28/24 Unknown History tablet (Vitamin B-2) sumatriptan succinate 25 mg tablet See Rx Instructions PO .COMPLEX 11/13/21 04/28/24 Unknown History empagliflozin 25 mg tablet 25 mg PO QAM 10/11/23 04/28/24 04/25/24 History (Jardiance) insulin glargine 100 unit/mL (3 25 unit subcut BID 04/28/24 04/28/24 Unknown History mL) subcutaneous pen (Lantus Solostar U-100 Insulin) metoprolol tartrate 25 mg tablet 37.5 mg PO BID 04/28/24 04/28/24 Unknown History Exam Height,Weight and Vital Signs: Height 5 ft 3 in Weight 88.904 kg Assessment and Plan Assessment Anesthesia Assessment: Chart Reviewed Documented by User: Zulma Elliott MD 04/30/24 09:38 [facility] Past Medical History Medical History (Updated 04/28/24 @ 12:38 by Stephenie Gustafson RN) Arthritis GERD (gastroesophageal reflux disease) Fibromyalgia Anxiety Carpal tunnel syndrome Anemia Adrenal mass Asthma Migraine Sleep apnea Depression Hypertension Diabetes Family History Family history of problems with anesthesia: No Surgical History Surgical History Hx of colonoscopy History of esophagogastroduodenoscopy (EGD) History of Problems with Anesthesia: No Social History Social History Alcohol intake: never Patient Tobacco Use Status: Never used Tobacco Advance Directives: No Advance Directives Information Provided: Yes Meds Allergies Allergy/AdvReac Type Severity Reaction Status Date / Time meloxicam Allergy Mild kidney Verified 11/07/23 14:19 failure amitriptyline Allergy Unknown Verified 11/07/23 14:19 gabapentin Allergy Difficulty Verified 11/07/23 14:19 Breathing Iodinated Contrast Media Allergy Anaphylaxis Verified 11/07/23 14:19 sulfamethoxazole Allergy Itching Verified 11/07/23 14:19 [From Bactrim] trimethoprim [From Bactrim] Allergy Itching Verified 11/07/23 14:19 Home Medications ?Medication ?Instructions ?Recorded ?Confirmed ?Last Taken ?Type amlodipine 10 mg tablet 10 mg PO DAILY 12/20/20 04/28/24 Unknown History cyclobenzaprine 10 mg tablet 10 mg PO BEDTIME 12/20/20 04/28/24 Unknown History duloxetine 60 mg capsule,delayed 60 mg PO DAILY 12/20/20 04/28/24 Unknown History release ferrous sulfate 325 mg (65 mg 325 mg PO DAILY 12/20/20 04/28/24 Unknown History iron) tablet insulin lispro 200 unit/mL (3 mL) 20 unit subcut QIDACHS 12/20/20 04/28/24 01/31/21 16:00 History subcutaneous pen (Humalog KwikPen U-200 Insulin) melatonin 10 mg capsule 10 mg PO BEDTIME PRN Insomnia 12/20/20 04/28/24 Unknown History sennosides 8.6 mg-docusate sodium 1 tab-cap PO BEDTIME 12/20/20 04/28/24 Unknown History 50 mg tablet (Senexon-S) albuterol sulfate 90 mcg/actuation 1 inh inhalation Q4-6H PRN 02/21/21 04/28/24 Unknown History breath activated powder Shortness Of Breath inhaler,sensor (Proair Digihaler) diclofenac sodium 75 mg 75 mg PO BID 06/09/21 04/28/24 Unknown History tablet,delayed release clonazepam 1 mg tablet 1 mg PO BID 11/13/21 04/28/24 Unknown History fluticasone propionate 50 1 spray intranasal DAILY 11/13/21 04/28/24 Unknown History mcg/actuation nasal spray,suspension (Flonase Allergy Relief) lisinopril 10 mg tablet 10 mg PO DAILY 11/13/21 04/28/24 02/01/21 07:00 History norethindrone (contraceptive) 0.35 0.35 mg PO DAILY 11/13/21 Unknown History mg tablet riboflavin (vitamin B2) 100 mg 200 mg PO BID 11/13/21 04/28/24 Unknown History tablet (Vitamin B-2) sumatriptan succinate 25 mg tablet See Rx Instructions PO .COMPLEX 11/13/21 04/28/24 Unknown History empagliflozin 25 mg tablet 25 mg PO QAM 10/11/23 04/28/24 04/25/24 History (Jardiance) insulin glargine 100 unit/mL (3 25 unit subcut BID 04/28/24 04/28/24 Unknown History mL) subcutaneous pen (Lantus Solostar U-100 Insulin) metoprolol tartrate 25 mg tablet 37.5 mg PO BID 04/28/24 04/28/24 Unknown History Exam Airway Mallampati Class: II (thick neck) TM Dist: >3cm Neck ROM: Full Heart: rrr Lungs: cta Assessment and Plan Assessment Anesthesia Assessment: Anesthesia Plan Discussed Final Anesthetic Review Family History of Problems with Anesthesia: No History of Problems with Anesthesia: No NPO: Yes ASA Class: III Final Preanesthetic Review: No Changes in Pt Med Stat, Meds/Allgs Chart Reviewed and Consent Obtained/Reviewed Patient Risk: Intermediate Procedure Risk: Low Anesthetic Plan Anesthetic Plan: MAC: (previous done in 21 by MAC, no significant wt gain since then) Disposition: Standard PACU
[2024-04-30 09:28] LABS: UPreg QC Valid YES; Urine Pregnancy NEGATIVE (NEGATIVE)
[2024-04-30] MEDS: Lactated Ringers 1,000 ML 100 ML IVCONT (09:32)
[2024-04-30 09:49] VITALS: BP 136/65; PULSE 90; RESP 18; TEMP 36.6; O2SAT 100
[2024-04-30 09:50] VITALS: BMI 37.7
--- NOTE | 2024-04-30 09:54 | MHC.SHP ---
Pre-Procedural Eval Section A - 24 Hr Update-Section A only Date of Service: 04/30/24 Section B - Complete if H&P > 30 days Chief Complaint: Noninfective gastroenteritis and colitis, unspecif Relevant Family History (Specify if Yes): No Relevant Social History: None Present Medications: see Short Stay Collaborative assessment Medical History: Significant History (Arthritis GERD (gastroesophageal reflux disease) Fibromyalgia Anxiety Carpal tunnel syndrome Anemia Adrenal mass Asthma Migraine Sleep apnea Depression Hypertension Diabetes) History of Previous Operations: Relevant previous surgery/procedure and date(s) (Hx of colonoscopy History of esophagogastroduodenoscopy (EGD)) Allergies: Allergies Allergy/AdvReac Type Severity Reaction Status Date / Time meloxicam Allergy Mild kidney Verified 11/07/23 14:19 failure amitriptyline Allergy Unknown Verified 11/07/23 14:19 gabapentin Allergy Difficulty Verified 11/07/23 14:19 Breathing Iodinated Contrast Media Allergy Anaphylaxis Verified 11/07/23 14:19 sulfamethoxazole Allergy Itching Verified 11/07/23 14:19 [From Bactrim] trimethoprim [From Bactrim] Allergy Itching Verified 11/07/23 14:19 Review of Systems Sugical H&P ROS: Negative: Constitution, Cardiovascular, Respiratory, Neurological, Psychiatric, Hem-Onc, Allergic/Immunologic, Gastrointestinal, Genitourinary, Musculoskeletal, Integumentary, Endocrine and Eyes/Ears/Nose/Throat Exam Surgical H&P Exam: Normal: HEENT, Normal: Heart, Normal: Lungs, Normal: Extremities, Normal: Abdomen, Normal: Skin and Normal: Neurological Plan Diagnosis/Plan: Unchanged I have reviewed the history and physical and performed a pertinent physical examination on my patient. No changes have occurred unless specified. Time Spent With Patient Time: Total time managing care of this patient today ____ minutes.
[2024-04-30 10:07] LABS: Glucose, Whole Blood 204 mg/dL (60-115)
--- NOTE | 2024-04-30 10:31 | HO.OPN-COLON ---
Colonoscopy Operative Note Operative Note Date of Service: 04/30/24 Narrative: Operative Information Procedure Description: EGD, Colonoscopy Indication: abn bowel habit, elevated fecal calprotectin Anesthesia: MAC FLEXIBLE TRANSORAL UPPER GASTROINTESTINAL ENDOSCOPY AND COLONOSCOPY PROCEDURE NOTE UPPER ENDOSCOPY Consent: Indications for the procedure and potential complications of bleeding, perforation, reaction to medications and missed diagnosis were discussed with the patient and informed consent was obtained. Instrument: Olympus GIF H 190 J mid size upper endoscope Monitoring: Vital signs and clinical assessment, continuous EKG monitoring, Pulse oximetry, Carbon Dioxide monitoring and blood pressure monitoring were done throughout the procedure. Procedure: The patient was placed in the left lateral decubitis position and pre-procedure medications were administered and a bite block was placed. The endoscope was inserted into the mouth and advanced under direct vision to the third part of duodenum. A careful inspection was made as the upper endoscope was withdrawn including a retroflexed examination of the proximal stomach; Findings and interventions are described below. Findings: Larynx:normal Esophagus: GE junction at 38 cm, diaphragm hiatus at 38 cm, normal, bx taken from GEJ Stomach: Patchy erythema, and few fundic gland polyps noted. Biopsies were obtained. Grade 2 flap valve on retroflexed examination of the cardia. Duodenum: Normal bulb and descending duodenum, bx taken Intervention: Biopsies as noted above, COLONOSCOPY Instrument: Olympus variable stiffness pediatric scope 190L Colonoscopy Monitoring: Vital signs and clinical assessment, continuous EKG monitoring, Pulse oximetry, Carbon Dioxide monitoring and blood pressure monitoring were done throughout the procedure. Colon withdrawal time was 9 minutes. Procedure: The patient was placed in the left lateral decubitis position and pre-procedure medications were administered. After a digital rectal examination of the ano-rectum, the video colonoscope was inserted into the rectum and advanced through the colon to the cecum/TI. The colonoscope was slowly withdrawn in a retrograde panoramic fashion and the colon mucosa was carefully examined including a retroflexed view of the rectum. Findings and interventions are described below. Procedure Difficulty:moderate Findings: Terminal Ileum-normal, bx taken Random colon bx taken Cecum:normal Ascending Colon: normal Transverse Colon -normal Descending Colon:normal Sigmoid Colon: 4-6 mm sessile polyp removed with cold forceps Rectum: Retroflexion with small internal hemorrhoids, grade I Anorectum - normal Colon preparation: [place] Bowel Preparation Scale Right colon; 1-2 Transverse colon: 2 Left colon; 2 (0 = Unprepared colon segment with mucosa not seen due to solid stool that cannot be cleared. 1 = Portion of mucosa of the colon segment seen, but other areas of the colon segment not well seen due to staining, residual stool and/or opaque liquid. 2 = Minor amount of residual staining, small fragments of stool and/or opaque liquid, but mucosa of colon segment seen well. 3 = Entire mucosa of colon segment seen well with no residual staining, small fragments of stool or opaque liquid) Impression and Post Procedure Diagnosis: Endoscopy Findings: fundic gland polyps gastritis Colonoscopy Findings: colon polyp internal hemorrhoids Plan: Await Pathology results Repeat Colonoscopy in 5 years due to fair prep on right and polyp or earlier if clinically indicated High fiber diet leaflet avoid straining at stool, epsom salts and sitz bath, anusol supps or cream if H pylori pos then treat Above findings were reviewed with the patient and relevant handouts were provided if indicated.
[2024-04-30 10:39] VITALS: BP 96/56; PULSE 94; RESP 16; TEMP 36.3; O2SAT 96
[2024-04-30 10:54] VITALS: BP 132/67; PULSE 91; RESP 16; O2SAT 98
[2024-04-30 11:09] VITALS: BP 156/79; PULSE 89; RESP 16; TEMP 36.3; O2SAT 98
== END 2024-04-30 12:35 | disposition home or self-care (01) ==
PROVIDERS: Anesthesiology; PCP Internal Medicine; Visit Provider Internal Medicine Gastroenterology
PROC: (CPT 43239; principal; 2024-04-30 12:00)
DX: K31.7 Polyp of stomach and duodenum (principal); K29.70 Gastritis, unspecified, without bleeding; K20.90 Esophagitis, unspecified without bleeding; K52.9 Noninfective gastroenteritis and colitis, unspecified; K21.9 Gastro-esophageal reflux disease without esophagitis; D12.5 Benign neoplasm of sigmoid colon; K64.0 First degree hemorrhoids; E11.9 Type 2 diabetes mellitus without complications; I10 Essential (primary) hypertension; J45.909 Unspecified asthma, uncomplicated; D64.9 Anemia, unspecified; G47.33 Obstructive sleep apnea (adult) (pediatric); Z79.4 Long term (current) use of insulin; Z79.899 Other long term (current) drug therapy
CPT/HCPCS: 43239; 45380; 81025; 82947; 88305; 88313; 88342; J1596; J2250; J2704

== ENCOUNTER → 2024-04-30 09:03 | Outpatient (BNV) | payer OTHER, SELFPAY | PROVIDERS: PCP Internal Medicine; Visit Provider Internal Medicine Gastroenterology | DX: R19.5 Other fecal abnormalities (principal); D12.5 Benign neoplasm of sigmoid colon; K64.0 First degree hemorrhoids; K31.7 Polyp of stomach and duodenum; K29.70 Gastritis, unspecified, without bleeding | CPT/HCPCS: 43239; 45380 ==

== ENCOUNTER 2024-05-15 10:08 | Outpatient (AMB) | payer OTHER, SELFPAY ==
[2024-05-15 10:09] VITALS: BP 121/56; PULSE 96; BMI 37.5
--- NOTE | 2024-05-15 10:09 | A.OFFVIS_ITS ---
Vital Signs 05/15/24 10:09 Height 5 ft 3 in Weight 211 lb 10.3 oz BMI 37.5 BP 121/56 L Blood Pressure Location Lt brachial Position Sitting Pulse 96 Intake Visit Reasons: S/p egd/colon Intake Note: Makenna presents in the office as a follow up DOUBLE. CC: Allergies meloxicam Allergy (Mild, Verified 05/15/24 10:18) kidney failure amitriptyline Allergy (Verified 05/15/24 10:18) Unknown gabapentin Allergy (Verified 05/15/24 10:18) Difficulty Breathing Iodinated Contrast Media Allergy (Verified 05/15/24 10:18) Anaphylaxis sulfamethoxazole [From Bactrim] Allergy (Verified 05/15/24 10:18) Itching trimethoprim [From Bactrim] Allergy (Verified 05/15/24 10:18) Itching HPI HPI S/p egd/colon: Details: 49 yr old f with hx of asthma, HTN, migraines, GERARDO, DM, seen for f/u RECAP: original complaints: she had 2 months of nausea and vomiting, non bloody epigastric pain, can be 8-10/10 in severity food doesn't affect it she has omeprazole (given by ER --ran out now) occ takes famotidine kel she had EGD many years ago--had ABX treatment in past No FH of colon cancer or stomach issues Labs with borderline anemia, low MCV she had EGd/colonoscopy due to above -- 01/2021---colon nml, EGD reduced gastric movt, mild esophagitis BX: active esophagitis, villous blunting of duodenum, TI/colon nml celiac panel and Ig levels were nml I called her 02/2021-- she had what sounded like gastroenteritis and was recovering GES: pos 19% 2021 CT [facility] remote access-- long segment colitis transverse and descending EGD/COlo 05/05 bx from TI and colo were neg, TA removed, active esophagitis, gastritis INTERIM: she feels fine no abdo pain no diarrhea no nausea or vomiting occ bloating EXAM: GENERAL: The patient is well developed and nontoxic. VITAL SIGNS:see workflow HEENT: Nonicteric sclerae, PERRLA, EOMI. Oropharynx clear. Moist mucous membranes. Conjunctivae appear well perfused. No thyroid mass. CHEST: Chest wall is nontender. HEART: Regular rate and rhythm without murmurs. LUNGS: Clear to auscultation bilaterally. ABDOMEN: Soft, positive bowel sounds, nontender epigastrium, no organomegaly.no flank tenderness SKIN: No rash, no excessive bruising, petechiae, or purpura. NEUROLOGIC: Cranial nerves II-XII intact without motor/sensory deficit. Psych: normal affect A/P: 1/ recent colitis--bx from colo negative and sx better 2/ gastroparesis prob from DM 3/ colonic polyp, tubular adenoma 4/ active esophagitis and GERD PLAN: 1/check labs again, incl lactoferrin 2/ repeat colo in 5 yrs or earlier if needed 3/ change PPI to see if better response PFSH Medical History Arthritis GERD (gastroesophageal reflux disease) Fibromyalgia Anxiety Carpal tunnel syndrome Anemia Adrenal mass Asthma Migraine Sleep apnea Depression Hypertension Diabetes Surgical History Hx of colonoscopy History of esophagogastroduodenoscopy (EGD) Social History Alcohol intake: never Patient Tobacco Use Status: Never used Tobacco Physical Exam Vital Signs: Last Vital Signs Pulse 96 05/15/24 10:09 BP 121/56 L 05/15/24 10:09 BMI result Body Mass Index 37.5 Assessment & Plan Assessment & Plan (1) Colitis: Code(s): K52.9 - Noninfective gastroenteritis and colitis, unspecified Category: Medical Plan: see above Orders: Orders C Reactive Protein Today K52.9 - Noninfective gastroenteritis and colitis, unspecified Complete Blood Count Auto Diff Today K52.9 - Noninfective gastroenteritis and colitis, unspecified Comprehensive Met. Panel Today K52.9 - Noninfective gastroenteritis and colitis, unspecified, K75.81 - Nonalcoholic steatohepatitis (JAQUEZ) Lactoferrin, Fecal, Quant. Today K51.50 - Left sided colitis without complications, K52.9 - Noninfective gastroenteritis and colitis, unspecified Medications: New esomeprazole magnesium 40 mg PO DAILY 90 caps 1RF Discontinued pantoprazole Discontinued Reason: Doctor's Order 40 mg PO DAILY 90 tabs 1RF Coding Level of Care Code Est Pt Level 3 (18561) Diagnoses Colitis K52.9
== END 2024-05-15 10:43 | disposition home or self-care (01) ==
PROVIDERS: PCP Internal Medicine; Visit Provider Internal Medicine Gastroenterology
DX: K52.9 Noninfective gastroenteritis and colitis, unspecified (principal)
CPT/HCPCS: 99213

== ENCOUNTER 2024-05-15 10:08 | Outpatient (REF) | payer OTHER, SELFPAY ==
[2024-05-15 11:05] LABS: MANUAL DIFF FLAG NO
[2024-05-15 12:00] LABS: Basophils Absolute Auto 0.1 X10*3/uL (0.0-0.2); Basophils Percent Auto 0.6 % (0-2); Eosinophils Absolute Auto 0.1 X10*3/uL (0.0-0.4); Hematocrit 43.9 % (37.0-47.0); Hemoglobin 13.6 g/dl (12.0-16.0); Imm Gran Abs Auto 0.06 X10*3/uL (0.00-0.03); Imm Gran Pct Auto 0.5 % (0.0-0.4); Lymphocytes Absolute Auto 2.1 X10*3/uL (1.2-4.9); Mean Corpuscular Hemoglobin 24.8 pg (27.0-33.0); Mean Corpuscular Volume 80.1 fL (80.0-98.0); Mean Platelet Volume 10.2 fL (9.4-12.3); Monocytes Absolute Auto 0.7 X10*3/uL (0.1-1.2); Monocytes Percent Auto 6.4 % (2-11); Neutrophils Absolute Auto 7.9 x10*3/uL (2.0-8.3); Neutrophils Percent Auto 72.5 % (45-73); Platelet Count 219 X10*3/uL (160-400); Red Blood Count 5.48 X10*6/uL (4.20-5.50); Red Cell Distribution Width 18.1 % (11.0-16.0); White Blood Count 10.9 X10*3/uL (4.8-10.8)
[2024-05-15 13:21] LABS: Alanine Aminotransferase 22 U/L (0-31); Albumin Level 4.2 g/dL (3.5-5.0); Alkaline Phosphatase 133 U/L (39-117); Anion Gap 13 (12-20); Aspartate Amino Transferase 16 U/L (5-31); Bilirubin Total 0.4 mg/dL (0.0-1.0); Blood Urea Nitrogen 15 mg/dL (9-16); C Reactive Protein 1.53 mg/dL (< or = 0.50); Calcium 9.5 mg/dL (8.4-10.2); Carbon Dioxide 27 mmol/L (22-29); Chloride 104 mmol/L (96-108); Estimated Glomerular Filt Rate > 60; Glucose Random 151 mg/dL (60-115); Potassium 3.5 mmol/L (3.3-5.1); Sodium 140 mmol/L (135-145); Total Protein 7.9 g/dL (6.5-8.0)
== END 2024-05-15 10:09 | disposition home or self-care (01) ==
LOC: HO.LAB 10:08
PROVIDERS: PCP Internal Medicine; Visit Provider Internal Medicine Gastroenterology
DX: K52.9 Noninfective gastroenteritis and colitis, unspecified (principal); K75.81 Nonalcoholic steatohepatitis (NASH)
CPT/HCPCS: 36415; 80053; 85025; 86140; 99212

== ENCOUNTER 2024-05-16 09:42 | Outpatient (REF) | payer OTHER, SELFPAY ==
[2024-05-23 21:04] LABS: Lactoferrin, Fecal, Quant. 10.51 mcg/mL (<7.25)
== END 2024-05-16 09:43 | disposition home or self-care (01) ==
LOC: HO.LNP 09:42
PROVIDERS: Visit Provider Internal Medicine Gastroenterology
DX: K51.50 Left sided colitis without complications (principal); K52.9 Noninfective gastroenteritis and colitis, unspecified
CPT/HCPCS: 83631

== ENCOUNTER 2025-03-01 10:29 | Outpatient (REF) | payer OTHER, SELFPAY ==
[2025-03-01 16:51] LABS: Alanine Aminotransferase 15 U/L (0-31); Albumin Level 4.5 g/dL (3.5-5.0); Alkaline Phosphatase 128 U/L (39-117); Anion Gap 13 (12-20); Aspartate Amino Transferase 15 U/L (5-31); Blood Urea Nitrogen 23 mg/dL (9-16); Calcium 8.9 mg/dL (8.4-10.2); Carbon Dioxide 23 mmol/L (22-29); Chloride 112 mmol/L (96-108); Estimated Glomerular Filt Rate > 60; Potassium 3.9 mmol/L (3.3-5.1); Sodium 144 mmol/L (135-145); Total Protein 7.6 g/dL (6.5-8.0)
[2025-03-01 16:57] LABS: Ferritin 5 ng/mL (10-250)
[2025-03-03 19:18] LABS: TS Negative Control Passed; TS Panel A 0; TS Panel B 0; TS Positive Control Passed; TSpotTB Negative (Negative)
== END 2025-03-01 10:30 | disposition home or self-care (01) ==
LOC: HO.LAB 10:29
PROVIDERS: PCP Internal Medicine; Visit Provider Internal Medicine Gastroenterology
DX: K51.50 Left sided colitis without complications (principal); K52.9 Noninfective gastroenteritis and colitis, unspecified; K75.81 Nonalcoholic steatohepatitis (NASH); Z11.1 Encounter for screening for respiratory tuberculosis; Z79.899 Other long term (current) drug therapy
CPT/HCPCS: 36415; 80053; 82728; 85025; 86140; 86481; 99212

== ENCOUNTER 2025-03-01 10:29 | Outpatient (AMB) | payer OTHER, SELFPAY ==
--- NOTE | 2025-03-01 10:31 | A.OFFVIS_ITS ---
Vital Signs 03/01/25 10:40 Height 5 ft 3 in Weight 202 lb 13.204 oz BMI 35.9 BP 120/60 Blood Pressure Location Lt brachial Position Sitting Pulse 100 Intake Visit Reasons: Follow up 5 months colitis r/s 11/02/24 Intake Note: Makenna presents in the office as a follow up 5 months colitis. CC: She has been having lots of stomach pains and states that she went back to the pantoprazole herself. [employer] Required: No Allergies meloxicam Allergy (Mild, Verified 03/01/25 10:41) kidney failure amitriptyline Allergy (Verified 03/01/25 10:41) Unknown gabapentin Allergy (Verified 03/01/25 10:41) Difficulty Breathing Iodinated Contrast Media Allergy (Verified 03/01/25 10:41) Anaphylaxis sulfamethoxazole (From Bactrim) Allergy (Verified 03/01/25 10:41) Itching trimethoprim (From Bactrim) Allergy (Verified 03/01/25 10:41) Itching HPI HPI Follow up 5 months colitis r/s 11/02/24: Details: 50 yr old f with hx of asthma, HTN, migraines, GERARDO, DM, seen for f/u RECAP: original complaints: she had 2 months of nausea and vomiting, non bloody epigastric pain, can be 8-10/10 in severity food doesn't affect it she has omeprazole (given by ER --ran out now) occ takes famotidine kel she had EGD many years ago--had ABX treatment in past No FH of colon cancer or stomach issues Labs with borderline anemia, low MCV she had EGd/colonoscopy due to above -- 01/2021---colon nml, EGD reduced gastric movt, mild esophagitis BX: active esophagitis, villous blunting of duodenum, TI/colon nml celiac panel and Ig levels were nml I called her 02/2021-- she had what sounded like gastroenteritis and was recovering GES: pos 19% 2021 CT [facility] remote access-- long segment colitis transverse and descending EGD/COlo 05/05 bx from TI and colo were neg, TA removed, active esophagitis, gastritis stool lactoferrin: 10 INTERIM: she ran out of mesalamine she had noted some pain in mid abdomen and upper abdo appetite not good she had stopped PPI and went back to it and helps she had noted black stools for 5 d no SOB, palptns taking dulcolax EXAM: GENERAL: The patient is well developed and nontoxic. VITAL SIGNS:see workflow HEENT: Nonicteric sclerae, PERRLA, EOMI. Oropharynx clear. Moist mucous membranes. Conjunctivae appear well perfused. No thyroid mass. CHEST: Chest wall is nontender. HEART: Regular rate and rhythm without murmurs. LUNGS: Clear to auscultation bilaterally. ABDOMEN: Soft, positive bowel sounds, nontender epigastrium, no organomegaly.no flank tenderness SKIN: No rash, no excessive bruising, petechiae, or purpura. NEUROLOGIC: Cranial nerves II-XII intact without motor/sensory deficit. Psych: normal affect A/P: 1/ colitis--bx from colo negative but stool markers were high in past 2/ gastroparesis prob from DM 3/ colonic polyp, tubular adenoma 4/ active esophagitis and GERD PLAN: 1/check labs again, incl lactoferrin 2/ recommence apriso and see if helps 3/ if ongoing sx then maybe repeat EGD, colo and trial of ABx [facility] Medical History Arthritis GERD (gastroesophageal reflux disease) Fibromyalgia Anxiety Carpal tunnel syndrome Anemia Adrenal mass Asthma Migraine Sleep apnea Depression Hypertension Diabetes Surgical History Hx of colonoscopy History of esophagogastroduodenoscopy (EGD) Social History Alcohol intake: never Patient Tobacco Use Status: Never used Tobacco Physical Exam Vital Signs: Last Vital Signs Pulse 100 03/01/25 10:40 BP 120/60 03/01/25 10:40 BMI result Body Mass Index 35.9 Assessment & Plan Assessment & Plan (1) Colitis: Code(s): K52.9 - Noninfective gastroenteritis and colitis, unspecified Category: Medical Plan: as above Orders: Orders Comprehensive Met. Panel Today K52.9 - Noninfective gastroenteritis and colitis, unspecified, K75.81 - Nonalcoholic steatohepatitis (JAQUEZ) Lactoferrin, Fecal, Quant. Today K51.50 - Left sided colitis without complications, K52.9 - Noninfective gastroenteritis and colitis, unspecified Ferritin Today K52.9 - Noninfective gastroenteritis and colitis, unspecified Complete Blood Count Auto Diff Today K52.9 - Noninfective gastroenteritis and colitis, unspecified C Reactive Protein Today K52.9 - Noninfective gastroenteritis and colitis, unspecified T Spot TB Today K52.9 - Noninfective gastroenteritis and colitis, unspecified Medications: Refilled mesalamine ER (Apriso) 0.375 grams PO QAM 120 caps 2RF mesalamine ER (Apriso) 0.375 grams PO QAM 120 caps 2RF Coding Level of Care Code Est Pt Level 3 (64699) Diagnoses Colitis K52.9
[2025-03-01 10:40] VITALS: BP 120/60; PULSE 100; BMI 35.9
--- OUTSIDE RECORDS SUMMARY | 2025-03-01 11:31 | XMS_ITS | Clinical Summary ---
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 01/27/2025 6:54 PM [facility] Basophils Relative 0.5 % LAB HEMETOLOGY METHOD 01/27/2025 6:54 PM [facility] Immature Granulocytes Relative 0.4 % LAB HEMETOLOGY METHOD 01/27/2025 6:54 PM EDT [facility] Neutrophils Absolute 9.87(H) 1.50 - 7.00 K/mcL LAB HEMETOLOGY METHOD 01/27/2025 6:54 PM EDT [facility] Lymphocytes Absolute 2.83 1.00 - 5.00 K/mcL LAB HEMETOLOGY METHOD 01/27/2025 6:54 [facility] Monocytes Absolute 0.75 0.20 - 1.00 K/mcL LAB HEMETOLOGY METHOD 01/27/2025 6:54 PM EDT [facility] Eosinophils Absolute 0.19 0.00 - 0.50 K/mcL LAB HEMETOLOGY METHOD 01/27/2025 6:54 PM EDT [facility] Basophils Absolute 0.07 0.00 - 0.20 K/mcL LAB HEMETOLOGY METHOD 01/27/2025 6:54 PM EDT [facility] Immature Granulocytes Absolute 0.06(H) 0.00 - 0.03 K/mcL LAB HEMETOLOGY METHOD 01/27/2025 6:54 PM EDT [facility] Blood Venous blood specimen / Unknown Venipuncture / Unknown 01/27/2025 6:37 PM EDT 01/27/2025 6:47 PM EDT Willie Batista MD LAB BLOOD ORDERABLES Final Result Performing Organization Address City/[facility]/ZIP Co de Phone Number [facility] [address] [place] [address], [place] [phone] * Borrelia burgdorferi antibody (01/27/2025 6:37 PM EDT) [facility] Lyme Ab Negative Negative LAB CHEMISTRY METHOD 01/28/2025 8:08 AM EDT [facility] Comment: No laboratory evidence of infection with B. burgdorferi (Lyme disease). Negative results may occur in patients recently infected (<=14 days) with B. burgdorferi. If recent infection is suspected, repeat testing on a new sample collected in 7- 14 days is recommended. Blood Venous blood specimen / Unknown Venipuncture / Unknown 01/27/2025 6:37 PM EDT 01/27/2025 6:47 PM EDT Jaycob GRADY LAB BLOOD ORDERABLES Final Resul t [facility] [address] [place] [address], [place] [phone] * (ABNORMAL) C-reactive protein (01/27/2025 6:37 PM EDT) [facility] C-Reactive Protein 2.59(H) <=0.50 mg/dL LAB CHEMISTRY METHOD 01/28/2025 3:22 AM EDT [facility] Blood Venous blood specimen / Unknown Venipuncture / Unknown 01/27/2025 6:37 PM EDT 01/27/2025 6:47 PM EDT Jaycob GRADY LAB BLOOD ORDERABLES Final Resul t Performing Organization Address [facility]/ZIP Co de Phone Number [facility] [address] [place] [address], [place] [phone] * B-type natriuretic peptide (01/27/2025 6:37 PM EDT) Only the most recent of2 resultswithin the time period is included. [facility] BNP 8 <=100 pcg/mL LAB CHEMISTRY METHOD 01/27/2025 7:25 PM EDT [facility] Blood Venous blood specimen / Unknown Venipuncture / Unknown 01/27/2025 6:37 PM EDT 01/27/2025 6:47 PM EDT Willie Batista MD LAB BLOOD ORDERABLES Final Result Performing Organization Address City/[facility]/ZIP Co de Phone Number [facility] [address] [place] [address], [place] [phone] * (ABNORMAL) Basic metabolic panel (01/27/2025 6:37 PM EDT) [facility] Sodium 138 133 - 145 mmol/L LAB CHEMISTRY METHOD 01/27/2025 7:15 PM EDT [facility] Potassium 3.8 3.5 - 5.5 mmol/L LAB CHEMISTRY METHOD 01/27/2025 7:15 PM EDT [facility] Chloride 107 96 - 110 mmol/L LAB CHEMISTRY METHOD 01/27/2025 7:15 PM EDT [facility] CO2 23 21 - 32 mmol/L LAB CHEMISTRY METHOD 01/27/2025 7:15 PM T [facility] Anion Gap 8 3 - 11 LAB CHEMISTRY METHOD 01/27/2025 7:15 PM EDT [facility] Glucose 237(H) 70 - 100 mg/dL LAB CHEMISTRY METHOD 01/27/2025 7:15 PM EDT [facility] BUN 18 5 - 25 mg/dL LAB CHEMISTRY METHOD 01/27/2025 7:15 PM T [facility] Creatinine 1.14(H) 0.50 - 1.10 mg/dL LAB CHEMISTRY METHOD 01/27/2025 7:15 PM [facility] eGFR 58(L) >=60 mL/min/1. 73m2 LAB CHEMISTRY METHOD 01/27/2025 7:15 PM T [facility] Comment:Calculation based on the Chronic Kidney Disease Epidemiology Collaboration (CKD-EPI) equation refit without adjustment for race. BUN/Creatinine Ratio 15.8 LAB CHEMISTRY METHOD 01/27/2025 7:15 PM [facility] Calcium 9.9 8.5 - 10.5 mg/dL LAB CHEMISTRY METHOD 01/27/2025 7:15 PM T [facility] Blood Venous blood specimen / Unknown Venipuncture / Unknown 01/27/2025 6:37 PM EDT 01/27/2025 6:47 PM EDT us Willie Batista MD LAB BLOOD ORDERABLES Final Result [facility] [address] [place] [address], * ECG 12 lead (01/27/2025 6:32 PM EDT) Only the most recent of2 resultswithin the time period is included. Ventricular Rate ECG 111 BPM GEMUSE Atrial Rate 111 BPM GEMUSE P-R Interval 130 ms GEMUSE QRS Duration 84 ms GEMUSE Q-T Interval 326 ms GEMUSE QTc 443 ms GEMUSE P Wave Manderson 59 degrees GEMUSE R Manderson 39 degrees GEMUSE T Manderson 13 degrees GEMUSE ECG Interpretation Sinus tachycardia Possible Left atrial enlargement Borderline ECG When compared with ECG of 02-DEC-2024 11:14, Premature ventricular complexes are no longer Present Confirmed by VLADIMIR GARNER ([id number]) on 01/28/2025 3:21:49 PM GEMUSE 01/27/2025 6:32 PM EDT 01/28/2025 3:21 PM EDT us Willie Batista MD ECG ORDERABLES Final Resul t GEMUSE * XR Shoulder 2+ Views Right (01/22/2025 9:14 PM EDT) Anatomical Region Laterality Modality Upper Extremities, Shoulder Right Radi ographic Imaging 01/23/2025 9:11 AM EDT Impressions 01/23/2025 9:12 AM EDT FINDINGS/IMPRESSION: Degenerative changes of the glenohumeral and acromioclavicular joints. No acute fracture. No dislocation. Trace calcific tendinitis. -------- FINAL REPORT -------- Dictated By: Nick Neves Dictated Date: 01/23/2025 09:11 ET Assigned Physician: Nick Neves Reviewed and Electronically Signed By: Nick Neves Signed Date: 01/23/2025 09:12 ET Workstation ID: [id number] Transcribed By: Self Edit Transcribed Date: 01/23/2025 09:11 ET Narrative 01/23/2025 9:12 AM EDT XR SHOULDER 2+ VIEWS RIGHT INDICATION: acute pain TECHNIQUE: XR SHOULDER 2+ VIEWS RIGHT COMPARISON: No priors available. Procedure Note Nick Neves MD - 01/23/2025 XR SHOULDER 2+ VIEWS RIGHT INDICATION: acute pain TECHNIQUE: XR SHOULDER 2+ VIEWS RIGHT COMPARISON: No priors available. IMPRESSION: FINDINGS/IMPRESSION: Degenerative changes of the glenohumeral andacromioclavicular joints. No acute fracture. No dislocation. Tracecalcific tendinitis. -------- FINAL REPORT -------- Dictated By: Nick Neves Dictated Date: 01/23/2025 09:11 ET Assigned Physician: Nick Neves Reviewed and Electronically Signed By: Nick Neves Signed Date: 01/23/2025 09:12 ET Workstation ID: [id number] Transcribed By: Self Edit Transcribed Date: 01/23/2025 09:11 ET Monroe Bowman MD IMG XR PROCEDURES Final Result * Magnesium (12/02/2024 12:13 PM EDT) Magnesium 1.9 1.9 - 2.6 mg/dL LAB CHEMISTRY METHOD 12/02/2024 12:58 PM EDT [facility] Blood Venous blood specimen / Unknown Venipuncture / Unknown 12/02/2024 12:13 PM EDT 12/02/2024 12:26 PM EDT Mendoza Little MD LAB BLOOD ORDERABLES Final Res ult Performing Organization Address [facility] Co de Phone Number [facility] [address] [place] [address], [place] [phone] * Lipase (12/02/2024 12:13 PM EDT) Lipase 26 13 - 75 unit/L LAB CHEMISTRY METHOD 12/02/2024 12:58 PM EDT [facility] Blood Venous blood specimen / Unknown Venipuncture / Unknown 12/02/2024 12:13 PM EDT 12/02/2024 12:26 PM EDT Mendoza Little MD LAB BLOOD ORDERABLES Final Res ult Performing Organization Address City/[facility]/ZIP Co de Phone Number [facility] [address] [place] [address], * (ABNORMAL) Comprehensive metabolic panel (12/02/2024 12:13 PM EDT) Sodium 141 133 - 145 mmol/L LAB CHEMISTRY METHOD 12/02/2024 1:10 PM EDT [facility] Potassium 3.7 3.5 - 5.5 mmol/L LAB CHEMISTRY METHOD 12/02/2024 1:10 PM [facility] Chloride 109 96 - 110 mmol/L LAB CHEMISTRY METHOD 12/02/2024 1:10 PM [facility] CO2 27 21 - 32 mmol/L LAB CHEMISTRY METHOD 12/02/2024 1:10 PM [facility] Anion Gap 5 3 - 11 LAB CHEMISTRY METHOD 12/02/2024 1:10 PM [facility] Glucose 99 70 - 100 mg/dL LAB CHEMISTRY METHOD 12/02/2024 1:10 PM [facility] BUN 17 5 - 25 mg/dL LAB CHEMISTRY METHOD 12/02/2024 1:10 PM [facility] Creatinine 0.68 0.50 - 1.10 mg/dL LAB CHEMISTRY METHOD 12/02/2024 1:[facility] eGFR 106 >=60 mL/min/1. 73m2 LAB CHEMISTRY METHOD 12/02/2024 1:10 PM [facility] Comment:Calculation based on the Chronic Kidney Disease Epidemiology Collaboration (CKD-EPI) equation refit without adjustment for race. BUN/Creatinine Ratio 25.0 LAB CHEMISTRY METHOD 12/02/2024 1:10 PM [facility] Calcium 8.9 8.5 - 10.5 mg/dL LAB CHEMISTRY METHOD 12/02/2024 1:10 PM [facility] AST (SGOT) 9(L) 10 - 42 unit/L LAB CHEMISTRY METHOD 12/02/2024 1:10 PM EDT [facility] ALT (SGPT) 14 10 - 60 unit/L LAB CHEMISTRY METHOD 12/02/2024 1:10 PM EDT [facility] Alkaline Phosphatase 114 42 - 121 unit/L LAB CHEMISTRY METHOD 12/02/2024 1:10 PM EDT [facility] Total Protein 6.8 6.0 - 8.0 g/dL LAB CHEMISTRY METHOD 12/02/2024 1:10 PM EDT [facility] Albumin 3.1(L) 3.2 - 5.0 g/dL LAB CHEMISTRY METHOD 12/02/2024 1:10 PM EDT [facility] Total Bilirubin 0.3 0.0 - 1.4 mg/dL LAB CHEMISTRY METHOD 12/02/2024 1:10 PM EDT [facility] Blood Venous blood specimen / Unknown Venipuncture / Unknown 12/02/2024 12:13 PM EDT 12/02/2024 12:26 PM EDT Mendoza Little MD LAB BLOOD ORDERABLES Final Res ult [facility] [address] [place] [address], from Last 3 Months Insurance [facility] MEDICAID ADVANTAGE [address] [place] [address] Advance Directives Documents on File Type Date Recorded Patient Spanish Speaking Babysitter Expl anation Health Care Decision (hx) 12/04/2016 AD SALCEDO DIRECTIVE Health Care Decision (hx) 12/04/2016 AD SALCEDO DIRECTIVE Health Care Decision (hx) 12/04/2016 AD SALCEDO DIRECTIVE Health Care Decision (hx) 12/04/2016 AD SALCEDO DIRECTIVE Health Care Decision (hx) 12/04/2016 AD SALCEDO DIRECTIVE Health Care Decision (hx) 12/04/2016 AD SALCEDO DIRECTIVE Health Care Decision (hx) 12/04/2016 AD SALCEDO DIRECTIVE Health Care Decision (hx) 12/04/2016 AD SALCEDO DIRECTIVE Health Care Decision (hx) 12/04/2016 AD SALCEDO DIRECTIVE Health Care Decision (hx) 12/04/2016 AD SALCEDO DIRECTIVE Health Care Decision (hx) 12/04/2016 AD SALCEDO DIRECTIVE Health Care Decision (hx) 12/04/2016 AD SALCEDO DIRECTIVE Health Care Decision (hx) 12/04/2016 AD SALCEDO DIRECTIVE Health Care Decision (hx) 12/04/2016 AD SALCEDO DIRECTIVE Health Care Decision (hx) 12/04/2016 AD SALCEDO DIRECTIVE Health Care Decision (hx) 12/04/2016 AD SALCEDO DIRECTIVE Health Care Decision (hx) 12/04/2016 AD SALCEDO DIRECTIVE Health Care Decision (hx) 12/04/2016 AD SALCEDO DIRECTIVE Health Care Decision (hx) 12/04/2016 AD SALCEDO DIRECTIVE Health Care Decision (hx) 12/04/2016 AD SALCEDO DIRECTIVE Health Care Decision (hx) 12/04/2016 AD SALCEDO DIRECTIVE Health Care Decision (hx) 12/04/2016 AD SALCEDO DIRECTIVE Health Care Decision (hx) 12/04/2016 AD SALCEDO DIRECTIVE Health Care Decision (hx) 12/04/2016 AD SALCEDO DIRECTIVE Health Care Decision (hx) 12/04/2016 AD SALCEDO DIRECTIVE Health Care Decision (hx) 12/04/2016 AD SALCEDO DIRECTIVE Health Care Decision (hx) 12/04/2016 AD SALCEDO DIRECTIVE Health Care Decision (hx) 12/04/2016 AD SALCEDO DIRECTIVE Health Care Decision (hx) 12/04/2016 AD SALCEDO DIRECTIVE Health Care Decision (hx) 12/04/2016 AD SALCEDO DIRECTIVE Care Teams Railroad Carman Relationship Specialty Start Date End Date Shital Perez MD [address] [place] [phone] PCP - General Internal Medicine 12/18/21
--- OUTSIDE RECORDS SUMMARY | 2025-03-01 11:31 | XMS_ITS | Clinical Summary ---
Author Organization [facility] Facility Address [address] [address] Care Team Providers Care Screen Repairer Crusher Name Role Phone Shital Perez MD Primary Care Provider [phone] Allergies Active Allergy Reactions Criticality Noted Date Comments Amitriptyline Other (see comments) 01/16/2023 Seratonin syndrome Sulfamethoxazole-Trimeth oprim Hives 01/16/2023 Iodinated Contrast Media Shortness of breath,Rash High 01/16/2023 Difficulty breathing Gabapentin Other (see comments) 01/16/2023 dizziness Meloxicam 01/16/2023 Medications acetaminophen (TYLENOL) 325 MG tablet Take 650 mg by mouth every 6 (six) hours if needed for mild pain Active albuterol (2.5 MG/3ML) 0.083% nebulizer solution Take 2.5 mg by nebulization every 6 (six) hours if needed for wheezing Active aspirin (ST MARGARET) 81 MG EC tablet Take 81 mg by mouth 1 (one) time each day Active amLODIPine (NORVASC) 10 MG tablet Take 10 mg by mouth 1 (one) time each day Active diphenhydrAMINE (BENADRYL) 25 MG tablet Take 25 mg by mouth every 6 (six) hours if needed for itching Active cetirizine (ZyrTEC) 10 MG tablet Take 10 mg by mouth 1 (one) time each day Active clonazePAM (KlonoPIN) 1 MG tablet Take 1 mg by mouth in the morning and 1 mg in the evening. Active DULoxetine HCl 30 MG Capsule Delayed Release Sprinkle Take 30 mg by mouth 1 (one) time each day Do not crush or chew. Active Empagliflozin 10 MG tablet Take 10 mg by mouth 1 (one) time each day in the morning Active ferrous sulfate 325 (65 Fe) MG tablet Take 325 mg by mouth 1 (one) time each day with breakfast Active fluticasone (FLONASE) 50 MCG/ACT nasal spray Administer 1 spray into each nostril 1 (one) time each day Active Insulin Lispro 100 UNIT/ML solution Inject as directed Active ipratropium (ATROVENT) 0.06 % nasal spray Administer 2 sprays into each nostril 4 (four) times a day Active ketotifen (ZADITOR) 0.025 % ophthalmic solution 1 drop 2 (two) times a day Active insulin glargine (LANTUS) 100 UNIT/ML injection Inject 100 Units under the skin every night Active lisinopril 40 MG tablet Take 40 mg by mouth 1 (one) time each day Active Magnesium 400 MG tablet Take 400 mg by mouth 1 (one) time each day Active lidocaine (LIDODERM) 5 % patch Apply 1 patch topically 1 (one) time each day Remove & discard patch within 12 hours or as directed by MD. Active Melatonin 5 MG tablet Take 1 tablet by mouth every evening and at bedtime Active metoprolol tartrate (LOPRESSOR) 12.5 mg tablet Take 25 mg by mouth in the morning and 25 mg in the evening. Active polyethylene glycol (GLYCOLAX) 17 g packet Take 17 g by mouth 1 (one) time each day Active ondansetron (ZOFRAN) 4 MG tablet Take 4 mg by mouth every 8 (eight) hours if needed for nausea or vomiting Active pantoprazole (PROTONIX) 40 MG EC tablet Take 40 mg by mouth 1 (one) time each day before breakfast Do not crush, chew, or split. Active rosuvastatin (CRESTOR) 5 MG tablet Take 5 mg by mouth 1 (one) time each day Active SUMAtriptan (IMITREX) 100 MG tablet Take 100 mg by mouth 1 (one) time if needed for migraine Active budesonide-form oterol (SYMBICORT) 160-4.5 MCG/ACT inhaler Inhale 2 puffs 2 (two) times a day Rinse mouth with water after use to reduce aftertaste and incidence of candidiasis. Do not swallow. 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 Family History Medical History Relation Comments Hypertension Father Diabetes Mother Hypertension Mother Relation Status Comments Brother Father Mother Social History Tobacco Use Types Packs/Day Years Used Date Smoking Tobacco: Never Smokeless Tobacco: Never Tobacco Cessation:Counseling Given: Not Answered Alcohol Use Standard Drinks/Week Comments Never 0 (1 standard drink = 0.6 oz pur e alcohol) Comments Unknown Sex and Gender Information Value Date Recorded Sex Assigned at Not on file Legal Sex Female 10:46 AM EST Gender Identity Not on file Sexual Orientation Not on file Last Filed Vital Signs Vital Sign Reading Time Taken Comments Blood Pressure 126/56 03/13/2023 9:01 AM EDT Pulse 90 03/14/2023 9:44 AM EDT Temperature - - Respiratory Rate - - Oxygen Saturation 98% 03/14/2023 9:44 AM EDT Inhaled Oxygen Concentration - - Weight 92.6 kg (204 lb 3.2 oz) 03/14/2023 9:44 A M EDT Height 160 cm (5' 3 ) 03/14/2023 9:44 AM EDT Body Mass Index 36.17 03/14/2023 9:44 AM EDT Plan of Treatment Health Maintenance Due Date Last Done Comments Breast Cancer Screening 1975 Hepatitis B Vaccine (1 of 3 - 19+ 3-dose series) 01/08 Pneumococcal Vaccine: 50+ Years (1 of 2 - PCV) 992 Colorectal Cancer Screening: Annual FOBT 2022 Colorectal Cancer Screening: Colonoscopy 2022 Colorectal Cancer Screening: Sigmoidoscopy 2022 Diabetes: Hemoglobin A1C 01/20/2023 Diabetes: Ophthalmology Exam 01/20/2023 Diabetes: Pedal Pulse Checked 01/20/2023 Diabetes: Sensory Foot Exam 01/20/2023 Diabetes: Visual Foot Exam 01/20/2023 Influenza Vaccine (#1) 2025 Insurance [facility] Medicaid [facility] Medicaid Care Teams Screen Repairer Crusher Relationship Specialty Start Date End Date Shital Perez MD [address] [place] [address] PCP - General Internal Medicine 10/04/21
== END 2025-03-01 11:29 | disposition home or self-care (01) ==
LOC: HO.HGI 10:30
PROVIDERS: PCP Internal Medicine; Visit Provider Internal Medicine Gastroenterology
DX: K52.9 Noninfective gastroenteritis and colitis, unspecified (principal)
CPT/HCPCS: 99213

== ENCOUNTER 2025-03-02 08:12 | Outpatient (REF) | payer OTHER, SELFPAY ==
[2025-03-10 22:53] LABS: Lactoferrin, Fecal, Quant. 8.92 mcg/mL (<7.25)
== END 2025-03-02 08:13 | disposition home or self-care (01) ==
LOC: HO.LNP 08:12
PROVIDERS: Visit Provider Internal Medicine Gastroenterology
DX: K51.50 Left sided colitis without complications (principal)
CPT/HCPCS: 83631

== ENCOUNTER 2025-03-03 07:38 | Outpatient (REF) | payer OTHER, SELFPAY ==
--- OUTSIDE RECORDS SUMMARY | 2025-03-03 07:41 | XMS_ITS | Clinical Summary ---
Author Organization [facility] Facility Address [address] [address] Care Team Providers Care Greens Planter Name Role Phone Shital Perez MD Primary Care Provider [phone] Allergies Active Allergy Reactions Criticality Noted Date [...] Health Medicaid [facility] Medicaid Care Teams Greens Planter Relationship Specialty Start Date End Date Shital Perez MD [address] [place] [address] PCP - General Internal Medicine 10/04/21
[2025-03-03 07:53] LABS: MANUAL DIFF FLAG NO
[2025-03-03 08:06] LABS: Hematocrit 37.1 % (37.0-47.0); Hemoglobin 11.2 g/dl (12.0-16.0); Imm Gran Abs Auto 0.06 X10*3/uL (0.00-0.03); Imm Gran Pct Auto 0.5 % (0.0-0.4); Lymphocytes Absolute Auto 2.2 X10*3/uL (1.2-4.9); Mean Corpuscular HGB Conc 30.2 g/dl (31.0-35.0); Mean Corpuscular Hemoglobin 22.0 pg (27.0-33.0); Mean Corpuscular Volume 72.9 fL (80.0-98.0); NRBC Abs Auto 0.000 X10*3/uL (0.0-0.012); NRBC Pct Auto 0.0 /100WBC (0.0-0.2); Platelet Count 286 X10*3/uL (160-400); Red Blood Count 5.09 X10*6/uL (4.20-5.50); White Blood Count 12.7 X10*3/uL (4.8-10.8)
== END 2025-03-03 07:39 | disposition home or self-care (01) ==
LOC: HO.LAB 07:38
PROVIDERS: PCP Internal Medicine; Visit Provider Internal Medicine Gastroenterology
DX: K52.9 Noninfective gastroenteritis and colitis, unspecified (principal)
CPT/HCPCS: 36415; 85025

== ENCOUNTER 2025-03-03 07:59 | Emergency (ER) | payer OTHER, SELFPAY ==
--- NOTE | ~2025-03-03 | XR_ITS ---
EXAMINATION: XR SHOULDER, LEFT CLINICAL INFORMATION: pain, injury COMPARISON: None available. TECHNIQUE: AP external rotation, Grashey, scapular Y, and axillary views of the left shoulder. FINDINGS: No acute cortical disruption or malalignment. Small marginal osteophyte formation at inferior glenoid of the scapula. No lytic or blastic lesions. No metallic or radiopaque foreign body. XR/XR shoulder LT min 2V IMPRESSION: Mild degenerative changes without acute fracture or dislocation. Electronically signed by: Bhupendra Porter MD 03/03/2025 09:09 AM EDT
[2025-03-03 08:11] VITALS: BP 128/72; PULSE 99; RESP 14; TEMP 36.8; O2SAT 99; BMI 35.4
--- NOTE | 2025-03-03 08:19 | ED.GENADULT ---
HPI - General Adult General Chief complaint: Fall Stated complaint: fall two days ago, neck/ left shoulder pain Time Seen by Provider: 03/03/25 08:17 Source: patient Mode of arrival: ambulatory Limitations: no limitations History of Present Illness ED Provider: Brielle Everett PA-C HPI narrative: Patient is a 50 year old assigned female at with a history of constipation presenting to the emergency department today with left shoulder pain. Patient states that 2 days ago she rolled out of bed and injured her left shoulder. Patient states that she was seen at [facility] Emergency Department and was given flexeril + lidocaine patches but the pain persists and she has not been imaged yet. Patient denies any loss of consciousness with the incident. Patient denies any dizziness, lightheadedness, abdominal pain, nausea, vomiting, fever, chills, blurry vision, double vision, loss of vision, chest pain, difficulty breathing, shortness of breath, back pain, night sweats, pain with urination, increased urinary frequency, increased urinary urgency, blood in her urine or stool, syncope or a near syncopal episode, bowel incontinence, bladder incontinence, or any other complaints at this time. Onset (ago): day(s) (2) Location: left and upper extremity Relieving factors: none Exacerbating factors: movement Associated symptoms: denies other symptoms Treatments prior to arrival: other (Flexeril + Lidocaine) Related Data Home Medications ?Medication ?Instructions ?Recorded ?Confirmed amlodipine 10 mg tablet 10 mg PO DAILY 12/20/20 04/28/24 cyclobenzaprine 10 mg tablet 10 mg PO BEDTIME 12/20/20 04/28/24 ferrous sulfate 325 mg (65 mg 325 mg PO DAILY 12/20/20 04/28/24 iron) tablet insulin lispro 200 unit/mL (3 mL) 20 unit subcut QIDACHS 12/20/20 04/28/24 subcutaneous pen (Humalog KwikPen U-200 Insulin) melatonin 10 mg capsule 10 mg PO BEDTIME PRN Insomnia 12/20/20 04/28/24 sennosides 8.6 mg-docusate sodium 1 tab-cap PO BEDTIME 12/20/20 04/28/24 50 mg tablet (Senexon-S) albuterol sulfate 90 mcg/actuation 1 inh inhalation Q4-6H PRN 02/21/21 04/28/24 breath activated powder Shortness Of Breath inhaler,sensor (Proair Digihaler) clonazepam 1 mg tablet 1 mg PO BID 11/13/21 04/28/24 fluticasone propionate 50 1 spray intranasal DAILY 11/13/21 04/28/24 mcg/actuation nasal spray,suspension (Flonase Allergy Relief) norethindrone (contraceptive) 0.35 0.35 mg PO DAILY 11/13/21 mg tablet riboflavin (vitamin B2) 100 mg 200 mg PO BID 11/13/21 04/28/24 tablet (Vitamin B-2) empagliflozin 25 mg tablet 25 mg PO QAM 10/11/23 04/28/24 (Jardiance) insulin glargine 100 unit/mL (3 25 unit subcut BID 04/28/24 04/28/24 mL) subcutaneous pen (Lantus Solostar U-100 Insulin) metoprolol tartrate 25 mg tablet 37.5 mg PO BID 04/28/24 04/28/24 duloxetine 20 mg capsule,delayed 20 mg PO BID 05/15/24 release lisinopril 40 mg tablet 40 mg PO DAILY 05/15/24 montelukast 10 mg tablet 10 mg PO DAILY 05/15/24 sumatriptan succinate 100 mg tablet mg PO 05/15/24 topiramate 15 mg sprinkle capsule 15 mg PO DAILY 05/15/24 aspirin 81 mg tablet 81 mg PO DAILY 03/01/25 galcanezumab-gnlm 120 mg/mL mg subcut 03/01/25 subcutaneous pen injector (Emgality Pen) methocarbamol 750 mg tablet 750 mg PO BEDTIME 03/01/25 oxycodone 5 mg capsule 5 mg PO BID PRN 03/01/25 pantoprazole 40 mg granules 40 mg PO DAILY 03/01/25 delayed-release for susp in packet tirzepatide 5 mg/0.5 mL 5 mg subcut QWEEK 03/01/25 subcutaneous pen injector (Hue) zaleplon 10 mg capsule 10 mg PO BEDTIME PRN 03/01/25 Previous Rx's ?Medication ?Instructions ?Recorded hydrocortisone 1 % topical cream 1 appl topical TID PRN skin 12/22/20 irritation #28.35 grams diazepam 5 mg tablet (Valium) 5 mg PO TID PRN muscle spasm #9 02/20/21 tabs lidocaine 5 % topical patch 1 patch topical DAILY PRN pain #30 04/30/21 (Lidoderm) ea acetaminophen 500 mg tablet 1,000 mg (2 x 500 mg) PO QID PRN 08/31/21 pain #30 tabs ondansetron 4 mg disintegrating 4 mg PO Q8H PRN for 11/27/23 tablet nausea/vomiting #60 tabs esomeprazole magnesium 40 mg 40 mg PO DAILY #90 caps 05/15/24 capsule,delayed release mesalamine 0.375 gram 0.375 g PO QAM #120 caps 03/01/25 capsule,extended release 24 hr (Apriso) Allergies Allergy/AdvReac Type Severity Reaction Status Date / Time meloxicam Allergy Mild kidney Verified 03/03/25 08:12 failure amitriptyline Allergy Unknown Verified 03/03/25 08:12 gabapentin Allergy Difficulty Verified 03/03/25 08:12 Breathing Iodinated Contrast Media Allergy Anaphylaxis Verified 03/03/25 08:12 nitrofurantoin (From Allergy Itching Verified 03/03/25 08:14 Macrobid) sulfamethoxazole (From Allergy Itching Verified 03/03/25 08:12 Bactrim) trimethoprim (From Bactrim) Allergy Itching Verified 03/03/25 08:12 Review of Systems Constitutional: Constitutional: Reports no additional constitutional complaints, Denies chills, Denies fever(s) and Denies night sweats Eyes: Eyes: Reports no additional eye complaints, Denies blurry vision, Denies change in vision, Denies diplopia, Denies eye discharge, Denies loss of vision and Denies eye pain ENT: Denies dizziness Cardiovascular: Cardiovascular: Reports no additional cardiovascular complaints, Denies chest pain, Denies lightheadedness, Denies Loss of Consciousness and Denies dyspnea Respiratory: Respiratory: Reports no additional respiratory complaints and Denies dyspnea Gastrointestinal: Gastrointestinal: Reports no additional gastrointestinal complaints, Denies abdominal pain, Denies melena, Denies hematochezia, Denies change in bowel habits and Denies change in stool character Genitourinary: Genitourinary: Denies hematuria, Denies urinary frequency, Denies dysuria, Denies urinary incontinence, Denies urinary hesitancy and Denies urinary urgency Musculoskeletal: Musculoskeletal: Reports no additional musculoskeletal complaints, Denies numbness and Denies tingling Comments: left shoulder pain Neurologic: Denies dizziness, Denies loss of vision, Denies numbness and Denies tingling Psychiatric: Psychiatric: Reports no additional psychiatric complaints Endocrine: Endocrine: Reports no additional endocrine complaints Hematologic/Lymphatic: Hematologic/Lymphatic: Reports no additional hematologic/lymphatic complaints Allergic/Immunologic: Allergic/Immunologic: Reports no additional allergic/immunologic complaints PMFSH Past Medical History Attestation statement: The following information was validated with the patient. Source: old records reviewed and nursing notes reviewed Medical History Arthritis GERD (gastroesophageal reflux disease) Fibromyalgia Anxiety Carpal tunnel syndrome Anemia Adrenal mass Asthma Migraine Sleep apnea Depression Hypertension Diabetes Surgical History Hx of colonoscopy History of esophagogastroduodenoscopy (EGD) Social History Social History Alcohol intake: never Patient Tobacco Use Status: Never used Tobacco Smoked in Last 30 Days: No Use of substances other than those prescribed or required for medical reasons: No Advance Directives: No Advance Directives Information Provided: Yes Do you have a plan to hurt others: No Plan Patient : No Physical Exam ED Vital Signs: Vital Signs - 24 hr 03/03/25 08:11 03/03/25 08:22 03/03/25 08:22 Temperature 98.3 F 98.3 F 98.2 F Pulse Rate 99 99 93 Respiratory Rate 14 14 16 Blood Pressure 128/72 128/72 124/64 Pulse Oximetry 99 99 99 Oxygen Delivery Method Room Air Room Air 03/03/25 09:16 Temperature 98.2 F Pulse Rate 93 Respiratory Rate 16 Blood Pressure 124/64 Pulse Oximetry 99 Oxygen Delivery Method Room Air BMI result Body Mass Index 35.4 Const General: cooperative, no acute distress, alert and awake Nutritional Appearance: well nourished Orientation/consciousness: patient oriented x3 HENMT Head: Yes normal to inspection and Yes atraumatic Ears: hearing grossly normal bilaterally and external ears normal General nose exam: Normal external nose present, no nasal discharge noted and no epistaxis Face and sinus: Yes normal facial exam, No abrasion and No laceration Mouth: Normal oral and palatal mucosa present, no drooling and no muffled voice Eyes General: appearance normal, both eyes and all related structures Periorbital: periorbital findings normal Eyelids: Yes eyelids normal Conjunctivae: conjunctivae normal Pupils: Equal, round and reactive pupils present EOM: EOMs intact bilaterally Neck Neck: Yes normal visual inspection, Yes full ROM and Yes no lymphadenopathy Resp Effort & Inspection: normal respiratory effort and able to speak in complete sentences Neuro General: patient oriented x3, moves all extremities and CN's II-XI intact bilaterally Cranial nerves: Yes Equal, round and reactive pupils present Cognition (Neuro): normal cognition Extrem General: Yes normal to inspection, Yes full ROM and Yes capillary refill normal Psych Appearance: grossly normal Mental Status: mental status grossly normal Affect: normal affect Attitude: cooperative Thought process: Normal thought process present Thought content: Normal thought content present Insight: Good insight present (Psych) Medical Decision Making Medical Decision Making MDM Narrative: Patient is a 50 year old assigned female at with a history of constipation presenting to the emergency department today with left shoulder pain. Patient's physical exam was unremarkable. Patient's left shoulder x-ray showed no acute process. I explained my physical exam findings as well as all test results to the patient. I answered all questions asked by the patient. I stressed the importance of the patient taking her medication as directed (either prescribed or as the over the counter packaging recommends). I stressed the importance of the patient following up with her primary care provider. I stressed the importance of the patient returning to the emergency department immediately if her symptoms were to worsen or if she were to develop any dizziness, shortness of breath, difficulty breathing, chest pain, blurry vision, loss of vision, nausea, vomiting, abdominal pain, fever, chills, back pain, or any other complaints. Patient verbalized agreement and understanding with this treatment plan and discharge. Differential Diagnosis Differential Diagnoses: The differential diagnosis associated with the presentation includes Left shoulder pain Left shoulder sprain Left shoulder strain Admission/Observation Consideration of admission/observation: Escalation of care including admission/observation considered Patient would have been admitted to the hospital had her work up had any findings where hospital admission was appropriate and her clinical presentation warranted hospital admission. Independent Interpretation I performed an independent interpretation of an: Plain X-Ray Interpretation: My interpretation is in agreement with the radiologist's impression of this imaging study. EXAMINATION: XR SHOULDER, LEFT CLINICAL INFORMATION: pain, injury COMPARISON: None available. TECHNIQUE: AP external rotation, Grashey, scapular Y, and axillary views of the left shoulder. FINDINGS: No acute cortical disruption or malalignment. Small marginal osteophyte formation at inferior glenoid of the scapula. No lytic or blastic lesions. No metallic or radiopaque foreign body. XR/XR shoulder LT min 2V IMPRESSION: Mild degenerative changes without acute fracture or dislocation. Electronically signed by: Bhupendra Porter MD 03/03/2025 09:09 AM EDT RP Dictated By: Bhupendra Kyle MD Signed By: Electronically signed by Bhupendra Turner MD 03/03/25 0909 Radiology Impression Discussion of test interpretation with radiology: I have reviewed the radiologist's reading. Prescription Management I considered prescription management with: Pain Medication (patient already prescribed appropriate pain medication) Discharge Plan Discharge Clinical Impression: Left shoulder pain Patient Disposition: Home, Self-Care Instructions: Shoulder Pain (ED) Additional Instructions: Your x-ray today showed no evidence of a fracture / break. La radiograf?a de hoy no mostr? evidencia de fractura/rotura. Follow up with your primary care provider. Return to the emergency department immediately if your symptoms worsen or if you develop any dizziness, shortness of breath, difficulty breathing, chest pain, blurry vision, loss of vision, nausea, vomiting, abdominal pain, fever, chills, back pain, or any other complaints. Alvaro?seguimiento?con eduardo m?dico de atenci?n primaria. Acuda inmediatamente al servicio de urgencias si yasmani s?ntomas empeoran o si presenta falta de aliento, dificultad para respirar, dolor tor?cico, mareos, aturdimiento, dolor de espalda, dolor abdominal, fiebre, escalofr?os o cualquier otro s?ntoma. Please see the information below about our Patient Portal. If you are not yet enrolled in the [facility] Patient Portal, you will receive an enrollment email invitation following your visit to any [facility] care setting. You may also self-enroll in the Patient Portal by visiting our website: [email or web address] The following information is required to access the Patient Portal: - Your [facility] Medical Record Number - Your personal home email address (must match what is in your electronic medical record, Registration staff can assist with this) - Name - Date of Capabilities of the Patient Portal: - Message some providers - View upcoming appointments - Access your health summary, medical history, and visit history - View current conditions and allergies - View procedure and lab results - View your medications, including guidelines, side effects, and precautions - Complete pre-appointment questionnaires requested by your provider - Ready summary reports of your office visits and procedures To access the Patient Portal Mobile [employer]any[employer], follow these directions: - Search [employer] in the [employer]any[employer] Store or easy[employer]map Store - Download the [employer]ell - Search for [facility] - Enter your login/password Portal del paciente Si usted no esta inscrito en el portal de pacientes de [facility], recibira ela invitacion de inscripcion despues de eduardo visita al [facility] o al [facility] via correo electronico. Tambien puede inscribirse voluntariamente en el portal de pacientes visitando nuestra pagina web: [email or web address] La siguiente informacion sera requerida para acceder al portal: - Eduardo neela de historia medica de [facility] - Eduardo direccion de correo electronico personal - Nombre - Fecha de nacimiento Capacidades: Las siguientes capacidades estan disponibles en el portal de pacientes: - Enviar mensajes a algunos doctores - Verificar proximas citas - Acceso a eduardo historial de lisa, registro medico e historial de visitas - Jory las condiciones actuales y alergias jory procedimientos y resultados del laboratorio - Jory yasmani medicamentos, incluyendo las pautas - Efectos secundarios y precauciones - Completar o llenar formularios / cuestionarios de - Citas solicitadas por eduardo doctor - Leer los resumenes de reportes medicos de yasmani visitas y procedimientos Hyndman acceder a la aplicacion movil: - [facility] [employer] en la [employer] Store o Google Play Store - Descargue la aplicacion - [facility] - Ingrese eduardo nombre de usuario / Contrasena Prescriptions: No Action ondansetron 4 mg tablet,disintegrating 4 mg PO Q8H PRN (Reason: for nausea/vomiting) Qty: 60 1RF hydrocortisone 1 % cream 1 appl topical TID PRN (Reason: skin irritation) Qty: 28.35 0RF diazepam [Valium] 5 mg tablet 5 mg PO TID PRN (Reason: muscle spasm) Qty: 9 0RF lidocaine [Lidoderm] 5 % adhesive patch,medicated 1 patch topical DAILY MDD remove after 12 hours PRN (Reason: pain) Qty: 30 0RF Rx Instructions: leave on most painful area for up to 12 hrs acetaminophen 500 mg tablet 1,000 mg PO QID PRN (Reason: pain) Qty: 30 0RF metoprolol tartrate 25 mg tablet 37.5 mg PO BID insulin glargine [Lantus Solostar U-100 Insulin] 100 unit/mL (3 mL) insulin pen 25 unit subcut BID Humalog KwikPen Insulin 200 unit/mL (3 mL) insulin pen 20 unit subcut QIDACHS sennosides-docusate sodium [Senexon-S] 8.6-50 mg tablet 1 tab-cap PO BEDTIME ferrous sulfate 325 mg (65 mg iron) tablet 325 mg PO DAILY cyclobenzaprine 10 mg tablet 10 mg PO BEDTIME amlodipine 10 mg tablet 10 mg PO DAILY melatonin 10 mg capsule 10 mg PO BEDTIME PRN (Reason: Insomnia) Proair Digihaler 90 mcg/actuation aero powdr breath act w/sensor 1 inh inhalation Q4-6H PRN (Reason: Shortness Of Breath) fluticasone propionate [Flonase Allergy Relief] 50 mcg/actuation spray,suspension 1 spray intranasal DAILY Rx Instructions: administer into each nostril clonazepam 1 mg tablet 1 mg PO BID riboflavin (vitamin B2) [Vitamin B-2] 100 mg tablet 200 mg PO BID norethindrone (contraceptive) 0.35 mg tablet 0.35 mg PO DAILY Jardiance 25 mg tablet 25 mg PO QAM lisinopril 40 mg tablet 40 mg PO DAILY topiramate 15 mg capsule, sprinkle 15 mg PO DAILY montelukast 10 mg tablet 10 mg PO DAILY duloxetine 20 mg capsule,delayed release(DR/EC) 20 mg PO BID sumatriptan succinate 100 mg tablet PO esomeprazole magnesium 40 mg capsule,delayed release(DR/EC) 40 mg PO DAILY Qty: 90 1RF Emgality Pen 120 mg/mL pen injector subcut methocarbamol 750 mg tablet 750 mg PO BEDTIME oxycodone 5 mg capsule 5 mg PO BID PRN aspirin 81 mg tablet 81 mg PO DAILY zaleplon 10 mg capsule 10 mg PO BEDTIME PRN Rx Instructions: must avoid high-fat meal/food immediately before taking dose pantoprazole [address] for susp in packet 40 mg PO DAILY Mounjaro 5 mg/0.5 mL pen injector 5 mg subcut QWEEK mesalamine [Apriso] 0.375 gram capsule,extended release 24hr 0.375 g PO QAM Qty: 120 2RF Referrals: Shital Perez MD [Primary Care Provider, Medical] Interventions: ED Discharge Assessment Last Done: 03/03/25 09:16 Print Language: Austrian
[2025-03-03 08:22] VITALS: BP 124/64; BP 128/72; PULSE 93; PULSE 99; RESP 14; RESP 16; TEMP 36.8; O2SAT 99
--- NOTE | 2025-03-03 09:12 | PC.NURSE ---
Patient presents to ED c/o left shoulder pain after a roll out of bed on Saturday. Denies Headstrike, LOC, vision changes, n/v. Patient went to [facility] yesterday and was prescribed Cyclobenzaprine and lidocaine patches, denies getting xrays. Pain is still presistent after medication use. +CMS limited ROM. Pain rated 8/10 radiating down to elbow, intermittent numbness. Patient denies dizziness and light headedness. no thinners. Provider in to see patient. Xrays performed no acute findings at this time.
[2025-03-03 09:16] VITALS: BP 124/64; PULSE 93; RESP 16; TEMP 36.8; O2SAT 99
[2025-03-03] MEDS: oxyCODONE HCl Immed Release 5 MG TABLET 10 MG PO (09:21)
== END 2025-03-03 09:33 | disposition home or self-care (01) ==
PROVIDERS: Emergency Provider Emergency Medicine; PCP Internal Medicine
DX: M25.512 Pain in left shoulder (principal)
CPT/HCPCS: 73030; 99283; 99284

== ENCOUNTER → 2025-03-03 08:25 | Outpatient (BNV) | payer OTHER, SELFPAY | PROVIDERS: Emergency Provider Emergency Medicine; PCP Internal Medicine; Visit Provider Radiology Diagnostic Radiology | DX: M25.512 Pain in left shoulder (principal); S49.92XA Unspecified injury of left shoulder and upper arm, initial encounter | CPT/HCPCS: 73030 ==